=== PATIENT | male | born 1975 | race Caucasian/White ===

== ENCOUNTER → 2018-06-04 10:39 | Outpatient (CLI) | payer BC, SELFPAY ==
[2018-06-04 12:14] LABS: Absolute Lymphocyte Count 1.12 X10^3/ul (0.83-4.51); Absolute Neutrophil Count 5.9 X10^3/uL (2.0-7.7); Basophil# 0.02 X10^3/uL; Basophil% 0.2 % (0-1); Eosinophil# 0.73 X10^3/uL; Eosinophils% 8.9 % (0-5); Hematocrit 54.4 % (40-54); Hemoglobin 18.9 g/dl (13.0-16.5); Lymphocyte # 1.12 X10^3/ul (4.0); Lymphocyte % 13.7 % (19-41); Mean Corp Hgb Conc 34.7 g/gl (32-36); Mean Corpuscular Hgb 31.2 pg (27.0-32.0); Mean Corpuscular Volume 89.8 fL (80-94); Mean Platelet Vol. 10.7 fl (6.2-12.0); Monocyte# 0.42 X10^3/uL; Monocyte% 5.1 % (0-10); Neutrophil # 5.88 X10^3/uL (2.7-7.7); Neutrophil % 71.7 % (47-70); Platelet Count 257 K/mm3 (150-450); RBC Distribution Width CV 13.8 % (11.6-14.6); Red Blood Count 6.06 M/mm3 (4.6-6.2); White Blood Count 8.2 K/mm3 (4.4-11.0)
[2018-06-04 12:30] LABS: POSITIVE COUNT NO; POSITIVE DIFFERENTIAL NO; POSITIVE MORPHOLOGY NO
[2018-06-04 13:01] LABS: ALB/GLOB Ratio 1.2 RATIO (0.9-2.4); AST(SGOT) 36 U/L (15-37); Alanine Aminotransfer ALT/SGPT 57 U/L (16-61); Albumin, Serum 3.8 g/dL (3.2-5.0); Alkaline Phosphatase 71 U/L (45-117); Anion Gap 9 (5-15); BUN 17 mg/dL (7-18); BUN/Creat Ratio 14.2 RATIO (10-20); Calcium,Total 8.6 mg/dL (8.5-10.1); Chloride 106 mmol/L (98-107); EST Glomerular Filtration Rate 71 mL/min (>60); Est Glom Filt Rate - Afr Amer 86 mL/min (>60); Globulin 3.3 g/dL (2.2-4.2); Glucose 98 mg/dL (74-106); PSA,Total - Annual Screen 3.46 ng/mL (0.00-4.00); Potassium 4.2 mmol/L (3.5-5.1); Protein, Total 7.1 g/dL (6.4-8.2); Sodium Level 142 mmol/L (136-145)
--- OUTSIDE RECORDS SUMMARY | 2018-09-05 23:42 | XMS RPT_ITS ---
:1975 Author Organization [facility] Care Team Providers Name Role Phone SMITH HERNANDEZ Admitting Unavailable SMITH HERNANDEZ Attending Unavailable SMITH HERNANDEZ Primary Care Unavailable SARY SABILLON Consulting Unavailable PROVIDER, UNKNOWN Consulting Unavailable RM HEART MD Admitting Unavailable RM HEART MD Attending Unavailable RM HEART MD Primary Care Unavailable SARY SABILLON Consulting Unavailable PROVIDER, UNKNOWN Consulting Unavailable Rm Heart Attending Unavailable Rm Heart Attending Unavailable PROBLEMS PROBLEMS No Problem Records FoundPROCEDURES PROCEDURES No Procedure Records FoundRESULTS RESULTS HEPATIC FUNCTION Collected: 07/06/2018 Status: F Source: [place] KAUR PANEL 2:05 PM [facility] REPOSITORY TYPE CODE TESTS RESULT OUT OF REFERENCE UNITS RANGE LAB HEPATIC FUNCTION PANEL(LOINC) HEPATIC FUNCTION PANEL Result Comment: HEPATIC FUNCTION PROFILE LAB ALBUMIN(LOINC) 3.4 - 4.8 g/dL ALBUMIN 4.6 LAB ALK PHOS(LOINC) 38 - 126 U/L ALK PHOS 50 LAB AST/SGOT(LOINC) 13 - 39 U/L AST/SGOT 38 LAB ALT/SGPT(LOINC) 10 - 40 U/L ALT/SGPT 36 LAB TOTAL BILI(LOINC) 0.0 - 1.5 mg/dl TOTAL BILI 0.9 LAB DIRECT BILI(LOINC) 0.0 - 0.1 mg/dl High DIRECT BILI 0.2 LAB TOTAL PROTEIN(LOINC) 6.4 - 8.3 g/dl TOTAL PROTEIN 6.9 Performed By: #### [id number] #### [facility],[address] [place], [place] [id number] CBC W/DIFF, AUTOMATED Collected: 06/04/2018 Status: F Source: [place] 10:41 AM [facility] REPOSITORY TYPE CODE TESTS RESULT OUT OF RANGE REFERENCE UNITS LAB L100.1000 4.4-11.0 K/mm3 Normal WBC 8.2 LAB L100.1200 4.6-6.2 M/mm3 Normal RBC 6.06 LAB L100.1300 13.0-16.5 g/dl High alert HGB 18.9 LAB L100.1400 40-54 % High HCT 54.4 LAB L100.1500 80-94 fL Normal MCV 89.8 LAB L100.1600 27.0-32.0 pg Normal MCH 31.2 LAB L100.1700 32-36 g/gl Normal MCHC 34.7 LAB L100.1810 11.6-14.6 % Normal RDW CV 13.8 LAB L100.1820 35.1-43.9 fl High RDW SD 45.0 LAB L100.1900 150-450 K/mm3 Normal PLT 257 LAB L100.2000 6.2-12.0 fl Normal MPV 10.7 LAB L100.2100 47-70 % High NEUT% 71.7 LAB L100.2200 19-41 % Low LY% 13.7 LAB L100.2300 0-10 % Normal MONO% 5.1 LAB L100.2400 0-5 % High EO% 8.9 LAB L100.2500 0-1 % Normal BASO% 0.2 LAB L100.2550 0.0-0.9 % Normal IM GRAN % 0.400 Result Comment: IG% - Immature Granulocytes (promyelocytes, myelocytes and metamyelocytes) > 1% indicates that a LEFT SHIFT is Present. LAB L100.2620 2.0-7.7 X10 3/uL Normal Absolute Neut 5.9 LAB L100.2720 0.83-4.51 X10 3/ul Normal Absolute Lymph 1.12 Performed By: #### L100.0100 #### [facility] [place], [address] COMPREHENSIVE METABOLIC Collected: 06/04/2018 Status: F Source: [place] 10:41 AM [facility] REPOSITORY TYPE CODE TESTS RESULT OUT OF RANGE REFERENCE UNITS LAB L501.0100 74-106 mg/dL Normal GLU 98 Result Comment: Please note revised GLUCOSE reference range effective 2017. LAB L501.1000 7-18 mg/dL Normal BUN 17 LAB L501.1100 0.70-1.30 mg/dL Normal CREAT,SERUM 1.20 Result Comment: The validity of the calculated GFR AND GFRAA in patients over 70 years has not been determined. Clinical correlation is essential. LAB L501.1110 >60 mL/min Normal EST GFR 71 Result Comment: Non- GFR Calc LAB L501.1115 >60 mL/min Normal EST GFR - AA 86 Result Comment: GFR Calc LAB L501.1300 10-20 RATIO Normal BUN/CRE 14.2 LAB L501.1500 6.4-8.2 g/dL T Normal PROT 7.1 LAB L501.1800 3.2-5.0 g/dL Normal ALB 3.8 LAB L501.1950 2.2-4.2 g/dL Normal GLOB 3.3 LAB L501.2000 0.9-2.4 RATIO Normal A/G 1.2 LAB L501.2200 8.5-10.1 mg/dL CA Normal 8.6 LAB L501.4100 15-37 U/L Normal AST 36 LAB L501.4305 45-117 U/L Normal ALK P 71 LAB L501.4405 16-61 U/L Normal ALT 57 LAB L501.4600 0.20-1.00 mg/dL T Normal BILI 0.50 LAB L501.5300 136-145 mmol/L NA Normal 142 LAB L501.5600 3.5-5.1 mmol/L K Normal 4.2 LAB L501.5900 98-107 mmol/L CL Normal 106 LAB L501.6100 21.0-32.0 mmol/L Normal CO2 27.0 LAB L501.6200 5-15 Normal GAP 9 Performed By: #### L500.4050, L501.9910 #### [facility] [address] [place], [address] PSA,TOTAL - ANNUAL Collected: 06/04/2018 Status: F Source: [place] SCREEN 10:41 AM [facility] REPOSITORY TYPE CODE TESTS RESULT OUT OF RANGE REFERENCE UNITS LAB L501.9910 0.00-4.00 ng/mL Normal PSA,TOT 3.46 SCREEN Result Comment: This test was performed using the TPSA assay method for the [employer] chemistry system. Values obtained with different assay methods cannot be used interchangably. When changing PSA assays in the course of monitoring a patient, additional sequential testing should be carried out to confirm baseline values. Performed By: #### L500.4050, L501.9910 #### [facility] [address] [place], [address] ALLERGIES ALLERGIES DATE TYPE / CODE NAME / CODE REACTION SEVERITY SOURCE Miscellaneous No Known Drug Moderate [facility] Allergy/[id number](S Allergies ([facility]OMED [facility]) Modifier) Hospital (Qualifier Repository Value) ENCOUNTERS ENCOUNTERS ADMIT/DISCHARGE ACCOUNT ADMITTING ENCOUNTER LOCATION SOURCE NUMBER CLASS 07/06/2018/ [id number] David HERNANDEZ [address] Repository 06/04/[id number] ing:BFHLAB Repository 06/04/[id number] ing:SAFIA Repository E 02/21/2018/ [id number] [facility] [address] Repository PAYERS PAYERS ENCOUNTER GUARANTOR PAYER SUBSCRIBER SOURCE 07/06/2018 KHANH Campbell Primary Insurance:ORESTES ANNE: LEXIE OLIVEIRAB: [facility] [id number] [facility] [id number] [facility] [address] Number: [address] [place]ository [address] [id number] [address] [id number]: Date:Plan Name: [id number] () 06/04/2018 KHANH D Primary KHANH D [place] [id number] Insurance:ANTHEMPolicy SHOULTSDOB: [facility] [address] Number: [id number] [id number] Repository [address]Yzl: ([phone]) Date:[id number] [phone] () [address] [place] [address] [id number]: 06/04/2018 Secondary NOT GIVENUNK [place] Insurance:SELF PAY [facility] Number: Effective Repository Date:2018-06-04 06/04/2018 KHANH D Primary KHANH D [place] [id number] Insurance:ANTHEMPolicy SHOULTSDOB: [facility] Number: [id number] [id number] Repository [address]Eif: ([phone]) Date:[id number] [phone] () [id number] [place] [address] [id number]: 06/04/2018 Secondary NOT GIVENUNK [place] Insurance:SELF PAY [facility] Number: Effective Repository Date:2018-06-04 02/21/2018 KHANH D Primary Insurance:BLUE KHANH D [facility] K[facility] SHOULTSDOB: [address] ANTHEM SHOULTSDOB: [facility] [id number] [facility] [id number] Number: [address] Repository [address] [place] [address] [id number] [address] [place] [address] [id number]: Date:Plan Name:[id number] ()
== END ==
PROVIDERS: Visit Provider Family Medicine
DX: I10 Essential (primary) hypertension (principal); Z12.5 Encounter for screening for malignant neoplasm of prostate
CPT/HCPCS: 36415; 80053; 84153; 85025; G0103

== ENCOUNTER → 2019-02-08 09:31 | Outpatient (CLI) | payer BC, SELFPAY ==
[2019-02-08 10:37] LABS: Absolute Lymphocyte Count 0.95 X10^3/uL (0.83-4.51); Absolute Neutrophil Count 7.2 X10^3/uL (2.0-7.7); Basophil# 0.02 X10^3/uL; Basophil% 0.2 % (0-1); Eosinophil# 0.25 X10^3/uL; Eosinophils% 2.7 % (0-5); Hematocrit 52.5 % (40-54); Hemoglobin 17.5 g/dL (13.0-16.5); Lymphocyte # 0.95 X10^3/ul (4.0); Lymphocyte % 10.3 % (19-41); Mean Corp Hgb Conc 33.3 g/dL (32-36); Mean Corpuscular Hgb 30.1 pg (27.0-32.0); Mean Corpuscular Volume 90.4 fL (80-94); Mean Platelet Vol. 10.3 fl (6.2-12.0); Monocyte# 0.72 X10^3/uL; Monocyte% 7.8 % (0-10); NRBC Flagged by Analyzer 0 % (0-5); Neutrophil # 7.23 X10^3/uL (2.7-7.7); Neutrophil % 78.5 % (47-70); Platelet Count 368 K/mm3 (150-450); RBC Distribution Width CV 13.7 % (11.6-14.6); RBC Distribution Width SD 45.4 fl (35.1-43.9); Red Blood Count 5.81 M/mm3 (4.6-6.2); White Blood Count 9.2 K/mm3 (4.4-11.0)
[2019-02-08 11:04] LABS: Anion Gap 8 (5-15); BUN 24 mg/dL (7-18); BUN/Creat Ratio 19.7 RATIO (10-20); Calcium,Total 8.8 mg/dL (8.5-10.1); Chloride 108 mmol/L (98-107); Creatinine, Serum 1.22 mg/dL (0.70-1.30); EST Glomerular Filtration Rate 69 mL/min (>60); Est Glom Filt Rate - Afr Amer 84 mL/min (>60); Glucose 78 mg/dL (74-106); Potassium 4.1 mmol/L (3.5-5.1); Sodium Level 142 mmol/L (136-145)
== END ==
PROVIDERS: Family Provider Family Medicine; PCP Family Medicine; Visit Provider Family Medicine
DX: Z01.810 Encounter for preprocedural cardiovascular examination (principal); D75.1 Secondary polycythemia
CPT/HCPCS: 36415; 80048; 85025

== ENCOUNTER → 2025-04-12 | Outpatient (CLI) | payer BC, SELFPAY ==
[2025-04-12 09:57] LABS: Hematocrit 53.7 % (40-54); Hemoglobin 18.5 g/dL (13.0-16.5); Immature Granulocytes Count 0.020 X10^3/uL (0.0-0.0); Mean Corp Hgb Conc 34.5 g/dL (32-36); Mean Corpuscular Volume 89.8 fL (80-94); Mean Platelet Vol. 10.7 fl (6.2-12.0); NRBC Flagged by Analyzer 0 % (0-5); Platelet Count 314 K/mm3 (150-450); RBC Distribution Width CV 13.9 % (11.6-14.6); RBC Distribution Width SD 46.3 fl (35.1-43.9); Red Blood Count 5.98 M/mm3 (4.6-6.2); White Blood Count 6.3 K/mm3 (4.4-11.0)
[2025-04-12 10:50] LABS: Cholesterol 173 mg/dL (<=200); Ferritin 298 ng/mL (37-417); Low Density Lipoprotein Calc. 112 mg/dL; Magnesium 2.2 mg/dL (1.5-2.2); PSA,Total- Diagnostic 3.02 ng/mL (0.00-4.00); Triglycerides 49 mg/dL; Very Low Density Lipoprotein 10 mg/dL (5-40); Vitamin B12 1418 pg/mL (180-914); Vitamin D,25 Hydroxy 62.3 ng/mL (30-100); cholesterol:hdl ratio screen 3.35
[2025-04-12 10:52] LABS: AST(SGOT) 48 U/L (<=37); Alanine Aminotransfer ALT/SGPT 59 U/L (<=46); Albumin, Serum 4.3 g/dL (3.5-5.0); Alkaline Phosphatase 64 U/L (40-129); Anion Gap 10 (5-15); BUN 21 mg/dL (4-19); BUN/Creat Ratio 18.0 RATIO (10-20); Calcium,Total 9.2 mg/dL (7.6-11.0); Carbon Dioxide 25.4 mmol/L (21.0-32.0); Chloride 104 mmol/L (98-108); Globulin 2.5 g/dL (2.2-4.2); Glucose 103 mg/dL (70-99); Potassium 4.4 mmol/L (3.3-5.1)
[2025-04-15 15:08] LABS: Estrogen, Total, Serum 105 pg/mL (56-213)
== END | disposition home or self-care (01) ==
PROVIDERS: PCP Family Medicine; Referring Provider Family Medicine; Visit Provider Family Medicine
DX: D58.2 Other hemoglobinopathies (principal); R74.8 Abnormal levels of other serum enzymes; E29.1 Testicular hypofunction; R73.9 Hyperglycemia, unspecified; Z13.220 Encounter for screening for lipoid disorders; R97.20 Elevated prostate specific antigen [PSA]; R68.89 Other general symptoms and signs
CPT/HCPCS: 36415; 80053; 80061; 82306; 82607; 82627; 82672; 82728; 83036; 83735; 84153; 84403; 85025; 82626

== ENCOUNTER → 2025-06-07 | Outpatient (CLI) | payer BC, SELFPAY ==
--- OUTSIDE RECORDS SUMMARY | 2025-06-07 07:10 | XMS RPT_ITS | CCD ---
Author Organization [facility] ion [facility] Care Team Providers Care Insurance Agency Sales Manager Name Role Phone Jake Juarez Primary Care Provider Kristopher RYAN, Haroon Powell Unavailable [phone] Jake Juarez MD Primary Care Provider [phone] Jake Juarez MD Primary Care Provider Unavailable Primary Care Provider Unavailabl e Jake Juarez MD Unavailable Carolin DIE OPERATOR, Adelina Unavailable Poppy Menchaca Unavailable Unavailable Issa DIE OPERATOR, Ragini Unavailable Unavailable Michael WOMACK, Mar Unavailable Unavailable Moe DIE OPERATOR, Cely Glass Unavailable Unavailab javid Oswald DIE OPERATOR, Maritza Unavailable Unavailable Unavailable Unavailable SARY SABILLON Primary Care Unavailable WILLIAM DUFF Attending Unavailable Unavailable Primary Care Provider Unavailabl e Unavailable Primary Care Provider Unavailabl e JAKE JUAREZ Referring Unavai lable VACCJAKE HERNANDEZ Primary Care Unavailable RAKEL, HARRISON MAYTE Referring Unavailable RAKEL, HARRISON MAYTE Attending Unavailable VACCARIELLO, JAKE Loza Primary Care Unavailable RAKEL, HARRISON MAYTE Attending Unavailable VACCARIELLO, ANTHONY Primary Care Unavailable RAKEL, HARRISON MAYTE Attending Unavailable VACCARIELLO, JAKE Primary Care Unavailable VACCARIELLO, JAKE Admitting Unavailable VACCARIELLO, JAKE Attending Unavailable VACCARIELLO, JAKE Consulting Unavailable PROVIDER, UNKNOWN Consulting Unavailable PROVIDER, UNKNOWN Consulting Unavailable PROVIDER, UNKNOWN Consulting Unavailable RAKEL, HARRISON MAYTE Primary Care Unavailable VACCARIELLO, JAKE Consulting Unavailable RAKEL, HARRISON MAYTE Admitting Unavailable RAKEL, HARRISON MAYTE Attending Unavailable PROVIDER, UNKNOWN Consulting Unavailable PROVIDER, UNKNOWN Consulting Unavailable PROVIDER, UNKNOWN Consulting Unavailable VACCARIELLO, JAKE Primary Care Unavailable VACCARIELLO, JAKE Admitting Unavailable VACCARIELLO, JAKE Attending Unavailable VACCARIELLO, JAKE Consulting Unavailable PROVIDER, UNKNOWN Consulting Unavailable PROVIDER, UNKNOWN Consulting Unavailable PROVIDER, UNKNOWN Consulting Unavailable VACCARIELLO, JAKE Admitting Unavailable VACCARIELLO, JAKE Attending Unavailable VACCARIELLO, JAKE Consulting Unavailable VACCARIELLO, JAKE Primary Care Unavailable PROVIDER, UNKNOWN Consulting Unavailable PROVIDER, UNKNOWN Consulting Unavailable PROVIDER, UNKNOWN Consulting Unavailable RAKEL, HARRISON MAYTE Primary Care Unavailable RAKEL, HARRISON MAYTE Attending Unavailable VACCARIELLO, JAKE Consulting Unavailable RAKEL, HARRISON MAYTE Admitting Unavailable PROVIDER, UNKNOWN Consulting Unavailable PROVIDER, UNKNOWN Consulting Unavailable PROVIDER, UNKNOWN Consulting Unavailable VACCARIELLO, JAKE Primary Care Unavailable VACCARIELLO, JAKE Admitting Unavailable VACCARIELLO, JAKE Attending Unavailable VACCARIELLO, JAKE Consulting Unavailable PROVIDER, UNKNOWN Consulting Unavailable PROVIDER, UNKNOWN Consulting Unavailable PROVIDER, UNKNOWN Consulting Unavailable Vaccariello, Jake Attending Unavailable Vaccariello, Jake Referring Unavailable Vaccariello, Jake Primary Care Unavailable Allergies Allergy Classification Reported Allergen(s) Allergy Type Date of Onset Reaction(s) Facility (1 source) ALLERGIES NOT ON FILE; Translations: [ALLERGIES NOT ON FILE] Propensity to adverse reactions (disorder) [facility] 2 Repository Medications Current Medications Medication Drug Class(es) Dates Sig (Normalized) Sig (Original) cetirizine hydrochloride 10 mg oral tablet (1 source) Histamine-1 Receptor Antagonist Start: 05-02-2023 End: 06-01-2023 take 1 tablet by mouth once daily cetirizine (ZYRTEC) 10 mg tablet Take 1 tablet by mouth once daily. 30 tablet 0 05/02/2023 06/01/2023 Active Comment on above: Take 1 tablet by [facility] once daily. doxycycline monohydrate 100 mg oral tablet (2 sources) Tetracycline-clas s Drug Start: 06-14-2024 End: 06-21-2024 take 1 tablet by mouth twice daily doxycycline monohydrate 100 mg tablet Take 1 tablet by mouth two times a day for 7 days. 14 tablet 06/14/2024 06/21/2024 Active Start: 05-02-2023 End: 05-09-2023 take 1 tablet by mouth twice daily doxycycline (VIBRA-TABS) 100 mg tablet Take 1 tablet by mouth two times a day for 7 days. 14 tablet 0 05/02/2023 05/09/2023 Active Comment on above: Take 1 tablet by maryjo two times a day for 7 days. fluticasone propionate 0.05 mg/actuat metered dose nasal spray (2 sources) Corticosteroid Start: 05-02-20 take 1 spray(s) nasal route once daily at bedtime fluticasone (FLONASE) 50 mcg/actuation nasal spray Use 1 [place] in each nostril daily at bedtime. 18.2 mL 05/02/2023 Active Comment on above: Use 1 [place] in each nostril daily at bedtime. 3 ml insulin glargine 100 unt/ml pen injector (20 sources) Insulin Analog Start: 07-26-19 Lantus Solostar U-100 Insulin 100 unit/mL (3 mL) subcutaneous pen ; 15 units at bedtime for 0 days Quantity: 5 {Each} Refills: 2 Ordered: 26-Jul-2024 MD Jake Juarez Start: 26-Jul-2024 Start: 01-18-2024 Lantus Solosta r U-100 Insulin 100 unit/mL (3 mL) subcutaneous pen ; 15 units at bedtime for 0 days Quantity: 5 {Each} Refills: 1 Ordered: 18-Jan-2024 MD Jake Juarez Start: 18-Jan-2024 Start: 12-28-2023 Lantus Solosta r U-100 Insulin 100 unit/mL (3 mL) subcutaneous pen ; 15 units at bedtime for 0 days Quantity: 5 {Each} Refills: 1 Ordered: 28-Dec-2023 MD Jake Juarez Start: 28-Dec-2023 Start: 12-28-2023 Lantus Solosta r U-100 Insulin 100 unit/mL (3 mL) subcutaneous pen ; 15 units at bedtime for 0 days Quantity: 5 {Each} Refills: 1 Ordered: 28-Dec-2023 MD Jake Juarez Start: 28-Dec-2023 Start: 12-28-2023 Lantus Solosta r U-100 Insulin 100 unit/mL (3 mL) subcutaneous pen ; 15 units at bedtime for 0 days Quantity: 5 {Each} Refills: 1 Ordered: 28-Dec-2023 MD Jake Juarez Start: 28-Dec-2023 Start: 12-28-2023 Lantus Solosta r U-100 Insulin 100 unit/mL (3 mL) subcutaneous pen ; 15 units at bedtime for 0 days Quantity: 5 {Each} Refills: 1 Ordered: 28-Dec-2023 MD Jake Juarez Start: 28-Dec-2023 Start: 12-27-2023 End: 12-28-2023 inject 15 [IU] by subcutaneous injection once daily at bedtime Lantus U-100 Insulin 100 unit/mL subcutaneous solution ; 15 units qhs for 0 days Quantity: 1 {Each} Refills: 0 Ordered: 28-Dec-2023 ADELE Coe Start: 27-Dec-2023 End: 28-Dec-2023 Status: Inactive Comments: pen injector Comment on above: pen injector lisinopril 10 mg oral tablet (20 sources) Angiotensin Converting Enzyme Inhibitor Start: 020 End: take 1 tablet by mouth once daily lisinopriL (PRINIVIL,ZESTRIL) 10 MG tablet Take 1 (one) tablet (10 mg total) by mouth daily . 90 tablet 3 09/11/2024 Active mupirocin 0.02 mg/mg topical ointment (1 source) RNA Synthetase Inhibitor Antibacterial Start: 024 End: mupirocin (BACTROBAN) 2 % ointment Apply to affected area three times a day for 7 days. 15 g 06/14/2024 06/21/2024 Active 1 ml testosterone cypionate 200 mg/ml injection (20 sources) Androgen Start: inject 0.5 mL by intramuscular injection two times weekly testosterone cypionate 200 mg/mL intramuscular oil ; 0.5 Milliliter twice per wk for 0 days Quantity: 10 {Milliliter} Refills: 3 Ordered: 06-Jan-2025 MD Jake Juarez Start: 06-Jan-2025 Comments: Lawanda Crowe Start: 11-23-2023 inject 0.5 mL by int ramuscular injection two times weekly testosterone cypionate 200 mg/mL intramuscular oil ; 0.5 Milliliter twice per wk for 0 days Quantity: 10 {Milliliter} Refills: 3 Ordered: 03-Jun-2024 MD Jake Juarez Start: 03-Jun-2024 Comments: Lawanda Crowe Start: 03-23-2023 inject 0.5 mL by int ramuscular injection two times weekly testosterone cypionate 200 mg/mL intramuscular oil ; 0.5 Milliliter twice per wk for 0 days Quantity: 10 {Milliliter} Refills: 3 Ordered: 23-Mar-2023 MD Jake Juarez Start: 23-Mar-2023 Comments: Lawanda Crowe testosterone cyp ionate 200 mg/mL Kit Inject 0.25 mL (50 mg total) into the shoulder, thigh, or buttocks . Active testosterone cyp ionate 200 mg/mL Kit Inject 50 mg into the shoulder, thigh, or buttocks . 0 Active testosterone john nthate 100 mg/0.5 mL auto-injector 2 injections per week testosterone enanthate Fany Martinez Comment on above: Lawanda Crowe Completed/Discontinued Medications Medication Drug Class(es) Dates Sig (Normalized) Sig (Original) atorvastatin 20 mg oral tablet (14 sources) HMG-CoA Reductase Inhibitor Start: 05-13-2020 End: 09-06-2023 take 1 tablet by mouth once daily atorvastatin (LIPITOR) 20 MG tablet Take 1 tablet by mouth once daily 90 tablet 0 06/14/2021 09/06/2023 Discontinued (Patient's Request) azithromycin 250 mg oral tablet (20 sources) Macrolide Antimicrobial Start: 11-29-2023 End: 12-22-2023 azithromycin 250 mg tablet ; 2 (two) tablet day 1 oral, then 1/dx4d for 0 days Quantity: 6 {Tablet} Refills: 0 Ordered: 22-Dec-2023 ADELE Coe Start: 29-Nov-2023 End: 22-Dec-2023 Status: Inactive Start: 05-03-2023 End: 06-09-2023 azithromycin 250 mg tablet ; 2 (two) tablet day 1 oral, then 1/dx4d for 0 days Quantity: 6 {Tablet} Refills: 0 Ordered: 09-Jun-2023 ADELE Coe Start: 03-May-2023 End: 09-Jun-2023 Status: Inactive 24 hr metoprolol succinate 25 mg extended release oral tablet (11 sources) beta-Adrenergic [place] Start: 06-17-2020 End: 09-06-2023 take 1 tablet by mouth once daily metoprolol succinate (Toprol XL) 25 MG 24 hr tablet Take 1 (one) tablet (25 mg total) by mouth daily . 90 tablet 3 06/17/2020 09/06/2023 Discontinued (Patient's Request) oseltamivir 75 mg oral capsule (20 sources) Neuraminidase Inhibitor Start: 05-22-2022 End: 06-16-2022 take 1 capsule by mouth twice daily Oseltamivir Phosphate 75 MG Oral Capsule ; 1 (one) Capsule bid for 0 days Quantity: 10 {Capsule} Refills: 0 Ordered: 16-Jun-2022 CarolinADELE Adelina Start: 22-May-2022 End: 16-Jun-2022 Status: Inactive 1000 ml sodium chloride 9 mg/ml injection (1 source) Start: 07-17-2020 End: 07-17-2020 sodium chloride 0.9% (NS) bolus 9 mL Start: 07-17-2020 End: 07-17-2020 sodium chloride 0.9% (NS) julián parker 9 mL Problems Active Problems Problem Classification Problem Date Documented Date Episodic/Chronic Aortic; peripheral; and visceral artery aneurysms (12 sources) Aortic root dilatation; Translations: [Ascending aorta dilatation] Onset: 09-11-2024 06-09-2023 Chronic Cardiac and circulatory congenital anomalies (5 sources) Bicuspid aortic valve; Translations: [Congenital insufficiency of aortic valve] Onset: 09-11-2024 09-06-2023 Chronic Deficiency and other anemia (20 sources) Increased hemoglobin; Translations: [Other hemoglobinopathies] 07-10-2024 Chronic Deficiency and other anemia (1 source) Other hemoglobinopathies; Translations: [Other hemoglobinopathies] Onset: 04-21-2025 Chronic Diabetes mellitus without complication (20 sources) Hyperglycemia; Translations: [Hyperglycemia, unspecified] 12-27-2023 Episodic Disorders of lipid metabolism (2 sources) Hyperlipidemia; Translations: [Hyperlipidemia, unspecified hyperlipidemia type] Chronic Essential hypertension (3 sources) Hypertensive disorder; Translations: [Essential (primary) hypertension] Onset: 09-11-2024 09-11-2024 Chronic Heart valve disorders (5 sources) Aortic valve regurgitation; Translations: [Nonrheumatic aortic (valve) insufficiency] Onset: 09-11-2024 06-09-2023 Chronic Immunizations and screening for infectious disease (20 sources) Contact with and (suspected) exposure to other viral communicable diseases; Translations: [Contact with or exposure to other viral diseases] 05-22-2022 Episodic Malaise and fatigue (20 sources) Fatigue; Translations: [Other fatigue] 06-30-2022 Episodic Open wounds of extremities (1 source) Puncture wound of right foot; Translations: [Puncture wound without foreign body, right foot, initial encounter] 11-30-2020 Episodic Other aftercare (20 sources) H/O: high risk medication; Translations: [Other sales agent insurance (current) drug therapy] 07-05-2024 Episodic Other circulatory disease (20 sources) Elevated blood-pressure reading without diagnosis of hypertension; Translations: [Elevated blood-pressure reading, without diagnosis of hypertension] 06-30-2022 Episodic Other congenital anomalies (20 sources) 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; Translations: [Enchondromatosis] Onset: 03-24-2021 03-24-2021 Chronic Other endocrine disorders (20 sources) Male hypogonadism; Translations: [Testicular hypofunction] 04-13-2023 Chronic Other liver diseases (20 sources) Elevated liver enzymes level; Translations: [Abnormal levels of other serum enzymes] 07-10-2024 Episodic Other nutritional; endocrine; and metabolic disorders (20 sources) Body mass index 30+ - obesity; Translations: [Body mass index (BMI) 35.0-35.9, adult] 06-30-2022 Chronic Other screening for suspected conditions (not mental disorders or infectious disease) (20 sources) Electrocardiogram abnormal; Translations: [Raised prostate specific antigen] Onset: 07-10-2024 04-25-2023 Episodic Comment on above: on tx Other upper respiratory infections (20 sources) Chronic sinusitis; Translations: [Chronic sinusitis, unspecified] 05-02-2023 Chronic Other upper respiratory infections (20 sources) Acute sinusitis; Translations: [Acute sinusitis, unspecified] Onset: 12-01-2023 11-29-2023 Episodic Residual codes; unclassified (2 sources) FH: Cardiac disorder; Translations: [Family history of heart disease] Episodic Residual codes; unclassified (20 sources) Immunization not carried out because of patient refusal; Translations: [Vaccination not carried out because of patient refusal] 06-30-2022 Episodic Residual codes; unclassified (20 sources) Up-to-date with immunizations; Translations: [Personal history of other drug therapy] 06-30-2022 Episodic Comment on above: 1 adult tdap 2020 Residual codes; unclassified (20 sources) Viral syndrome; Translations: [Other general symptoms and signs] 05-22-2022 Episodic Residual codes; unclassified (20 sources) Family history of diabetes mellitus in first degree relative; Translations: [Family history of diabetes mellitus] 12-27-2023 Episodic Residual codes; unclassified (4 sources) Forgetful; Translations: [Other general symptoms and signs] 02-05-2025 Episodic Skin and subcutaneous tissue infections (1 source) Infection of skin; Translations: [Local infection of the skin and subcutaneous tissue, unspecified] 06-14-2024 Episodic Unclassified (20 sources) Follow up for chronic condition - The patient is here for follow-up of other condition(s) (low testosterone). Note for Chronic condition follow-up: -Doing well. 12-27-2023 Unclassified (1 source) Follow-up for multiple chronic conditions (RAH) 02-05-2025 Unclassified (2 sources) Follow-up for multiple chronic conditions (RAH) - The patient is here for follow-up of other condition(s) (low testosterone, high glucose). The patient always takes the prescribed medications. No side effects noted. The patient engages in regular exercise program 3-5 times per week. The patient's glucose levels are monitored daily and out of office blood pressure checks occur frequently. The patient states that in general mood has improved. 02-05-2025 Unclassified (2 sources) [ADDITIONAL REASON] Well adult male - The patient feels well with no complaints, has good energy level and is sleeping well. The patient takes no supplemental vitamins & iron. The patient exercises 3 - 4 times per week. The patient sleeps 7 hours per night. Note for Well adult male: -He is using testosterone regularly as well as lantus. He checks his glucose often. He eats a lot of carbs. 02-05-2025 Past or Other Problems Problem Classification Problem Date Documented Date Episodic/Chronic Other acquired deformities (1 source) Defect of articular cartilage; Translations: [Other specified acquired deformities of musculoskeletal system] Onset: 05-22-2019 05-22-2019 Episodic Other connective tissue disease (1 source) Radial styloid tenosynovitis [de Quervain]; Translations: [Radial styloid tenosynovitis] Onset: 03-24-2021 03-24-2021 Episodic Other connective tissue disease (1 source) Trigger finger, left ring finger; Translations: [Trigger finger (acquired)] Onset: 04-22-2020 04-22-2020 Episodic Other connective tissue disease (1 source) Trigger thumb, left thumb; Translations: [Trigger finger (acquired)] Onset: 05-22-2019 05-22-2019 Episodic Other connective tissue disease (1 source) Trigger finger, left index finger; Translations: [Trigger finger (acquired)] Onset: 05-22-2019 05-22-2019 Episodic Other connective tissue disease (1 source) Trigger finger, left middle finger; Translations: [Trigger finger (acquired)] Onset: 05-22-2019 05-22-2019 Episodic Other connective tissue disease (1 source) Trigger finger, right middle finger; Translations: [Trigger finger (acquired)] Onset: 05-22-2019 05-22-2019 Episodic Other connective tissue disease (1 source) Trigger finger, right ring finger; Translations: [Trigger finger (acquired)] Onset: 05-22-2019 05-22-2019 Episodic Other non-traumatic joint disorders (1 source) Pain in elbow; Translations: [Pain in left elbow] Onset: 03-24-2021 03-24-2021 Episodic Unclassified (1 source) Problem Unclassified (20 sources) Well adult male - The patient feels well with no complaints, has good energy level and is sleeping well. The patient takes no supplemental vitamins & iron. The patient exercises 3 - 4 times per week. The patient sleeps 7 hours per night. Note for Well adult male: -His dentist was concerned about sleep apnea and had scheduled a test but pt cancelled.He states he was using testosterone daily for awhile. 06-30-2022 Unclassified (20 sources) wants excuse - Wants excuse to not wear a face mask at work. Other coworkers have excuses. He gets too hot and his blood pressure goes too high. He tried a sheild. He left work in the middle of a shift today and walked into [facility] to request this. 11-04-2020 Unclassified (20 sources) Well adult male - The patient feels well with no complaints, has good energy level and is sleeping well. The patient takes no supplemental vitamins & iron. The patient exercises weekly. The patient sleeps 7 hours per night. Note for Well adult male: -Asking for more labwork. He specifically wants testosterone, prolactin, CRP, a1c, dihydrotestosterone, cortisol and estrogens. 04-29-2020 Unclassified (1 source) Patient encounter status 07-10-2024 Results Test Name Value Interpretation Reference Range Facility DHEA Sulfateon 04-15-2025 DHEA SULFATE 156.0 ug/dL Normal 71.6-375.4 [facility] Comment on above: Order Comment: N Performed By: #### L [id number], L501.9985, L509.3001, L503.6550, L506.1001, L503.0106, L100.0100, L500.4050, L501.5200, L500.4100, L3400.0200, L3300.1500 #### [facility] [address] [place], [address] Estrogen, Total, Serumon ESTROGENS,TOTAL 105 pg/mL Normal 56-213 [facility] Comment on above: Order Comment: N Result Comment: Prep ubertal <40 Performed at: [facility] [address] [id number] [employer] Research Analyst: Franklyn Morales PhD, Phone: [phone] Performed at: [facility] [address] [id number] [employer] Research Analyst: Ronny Hayes MD, Phone: [phone] Performed By: #### L [id number], L501.9985, L509.3001, L503.6550, L506.1001, L503.0106, L100.0100, L500.4050, L501.5200, L500.4100, L3400.0200, L3300.1500 #### [facility] [address] [place], [address] CBC W/Diff, Automatedon 10- Absolute Lymph 0.84 X10 3/uL Normal 0.83-4.51 [facility] Comment on above: Order Comment: CRITI LUBNA VALUE CALLED TO CALLI TAMARA 04/12/25 Ly Goodwin. RESULTS READ BACK BY SAME. Performed By: #### L [id number], L501.9985, L509.3001, L503.6550, L506.1001, L503.0106, L100.0100, L500.4050, L501.5200, L500.4100, L3400.0200, L3300.1500 #### [facility] [address] [place], [address] Absolute Neut 4.8 X10 3/uL Normal 2.0-7.7 [facility] Comment on above: Order Comment: CRITI LUBNA VALUE CALLED TO CALLI MCDONALD 04/12/25 Ly Goodwin. RESULTS READ BACK BY SAME. Performed By: #### L [id number], L501.9985, L509.3001, L503.6550, L506.1001, L503.0106, L100.0100, L500.4050, L501.5200, L500.4100, L3400.0200, L3300.1500 #### [facility] [address] [place], [address] Basophils/100 WBC (Bld) 0.5 % Normal 0-1 [facility] Comment on above: Order Comment: CRITI LUBNA VALUE CALLED TO CALLI TAMARA 04/12/25 Ly Goodwin. RESULTS READ BACK BY SAME. Performed By: #### L [id number], L501.9985, L509.3001, L503.6550, L506.1001, L503.0106, L100.0100, L500.4050, L501.5200, L500.4100, L3400.0200, L3300.1500 #### [facility] [address] [place], [address] Eosinophils/100 WBC (Bld) 3.8 % Normal 0-5 [facility] Comment on above: Order Comment: CRITI LUBNA VALUE CALLED TO CALLI MCDONALD 04/12/25 Ly Goodwin. RESULTS READ BACK BY SAME. Performed By: #### L [id number], L501.9985, L509.3001, L503.6550, L506.1001, L503.0106, L100.0100, L500.4050, L501.5200, L500.4100, L3400.0200, L3300.1500 #### [facility] [address] [place], [address] Erythrocyte distribution width (RBC) [Ratio] 13.9 % Normal 11.6-14.6 [facility] Comment on above: Order Comment: CRITI LUBNA VALUE CALLED TO CALLI MCDONALD 04/12/25 Ly Goodwin. RESULTS READ BACK BY SAME. Performed By: #### L 501.9940, L501.9985, L509.3001, L503.6550, L506.1001, L503.0106, L100.0100, L500.4050, L501.5200, L500.4100, L3400.0200, L3300.1500 #### [facility] [address] [facility] [place], [place], [id number] ([address] Hematocrit (Bld) [Volume fraction] 53.7 % Normal 40-54 [facility] Comment on above: Order Comment: CRITI LUBNA VALUE CALLED TO CALLI MCDONALD 04/12/25 Ly Goodwin. RESULTS READ BACK BY SAME. Performed By: #### L 501.9940, L501.9985, L509.3001, L503.6550, L506.1001, L503.0106, L100.0100, L500.4050, L501.5200, L500.4100, L3400.0200, L3300.1500 #### [facility] [address] [place], [address] Hemoglobin (Bld) [Mass/Vol] 18.5 g/dL Invalid Interpretation Code 13.0-16.5 [facility] Comment on above: Order Comment: CRITI LUBNA VALUE CALLED TO CALLI MCDONALD 04/12/25 Ly Allen Goodwin. RESULTS READ BACK BY SAME. Performed By: #### L 501.9940, L501.9985, L509.3001, L503.6550, L506.1001, L503.0106, L100.0100, L500.4050, L501.5200, L500.4100, L3400.0200, L3300.1500 #### [facility] [address] [place], [address] IG% 0.300 Normal 0.0-0.9 [facility] Comment on above: Order Comment: CRITI LUBNA VALUE CALLED TO CALLI MCDONALD 04/12/25 Ly Goodwin. RESULTS READ BACK BY SAME. Result Comment: IG% - Immature Granulocytes (promyelocytes, myelocytes and metamyelocytes) > 1% indicates that a LEFT SHIFT is Present. Performed By: #### L 501.9940, L501.9985, L509.3001, L503.6550, L506.1001, L503.0106, L100.0100, L500.4050, L501.5200, L500.4100, L3400.0200, L3300.1500 #### [facility] [address] [place], [address] Lymphocytes/100 WBC (Bld) 13.3 % Low 19-41 [facility] Comment on above: Order Comment: CRITI LUBNA VALUE CALLED TO CALLI MCDONALD 04/12/25 Ly Goodwin. RESULTS READ BACK BY SAME. Performed By: #### L 501.9940, L501.9985, L509.3001, L503.6550, L506.1001, L503.0106, L100.0100, L500.4050, L501.5200, L500.4100, L3400.0200, L3300.1500 #### [facility] [address] [place], [address] MCH (RBC) [Entitic mass] 30.9 pg Normal 27.0-32.0 [facility] Comment on above: Order Comment: CRITI LUBNA VALUE CALLED TO CALLI MCDONALD 04/12/25 Ly Tiffany Goodwin. RESULTS READ BACK BY SAME. Performed By: #### L 501.9940, L501.9985, L509.3001, L503.6550, L506.1001, L503.0106, L100.0100, L500.4050, L501.5200, L500.4100, L3400.0200, L3300.1500 #### [facility] [address] [place], [address] MCHC (RBC) [Mass/Vol] 34.5 g/dL Normal 32-36 [facility] Comment on above: Order Comment: CRITI LUBNA VALUE CALLED TO CALLI MCDONALD 04/12/25 Ly Tiffany Goodwin. RESULTS READ BACK BY SAME. Performed By: #### L 501.9940, L501.9985, L509.3001, L503.6550, L506.1001, L503.0106, L100.0100, L500.4050, L501.5200, L500.4100, L3400.0200, L3300.1500 #### [facility] [address] [place], [address] MCV (RBC) [Entitic vol] 89.8 fL Normal 80-94 [facility] Comment on above: Order Comment: CRITI LUBNA VALUE CALLED TO CALLI MCDONALD 04/12/25 Ly Rankinneto Goodwin. RESULTS READ BACK BY SAME. Performed By: #### L 501.9940, L501.9985, L509.3001, L503.6550, L506.1001, L503.0106, L100.0100, L500.4050, L501.5200, L500.4100, L3400.0200, L3300.1500 #### [facility] [address] [place], [address] Monocytes/100 WBC (Bld) 7.0 % Normal 0-10 [facility] Comment on above: Order Comment: CRITI LUBNA VALUE CALLED TO CALLI BEAN 04/12/25 Ly Tiffany Goodwin. RESULTS READ BACK BY SAME. Performed By: #### L 501.9940, L501.9985, L509.3001, L503.6550, L506.1001, L503.0106, L100.0100, L500.4050, L501.5200, L500.4100, L3400.0200, L3300.1500 #### [facility] [address] [place], [address] Neutrophils/100 WBC (Bld) 75.1 % High 47-70 [facility] Comment on above: Order Comment: CRITI LUBNA VALUE CALLED TO CALLI MCDONALD 04/12/25 Ly Goodwin. RESULTS READ BACK BY SAME. Performed By: #### L 501.9940, L501.9985, L509.3001, L503.6550, L506.1001, L503.0106, L100.0100, L500.4050, L501.5200, L500.4100, L3400.0200, L3300.1500 #### [facility] [address] [place], [place], [phone] (282) Nucleated RBC (Bld) [#/Vol] 0 10*3/uL Normal 0-5 [facility] Comment on above: Order Comment: CRITI LUBNA VALUE CALLED TO CALLI MCDONALD 04/12/25 Ly Tiffany Goodwin. RESULTS READ BACK BY SAME. Performed By: #### L 501.9940, L501.9985, L509.3001, L503.6550, L506.1001, L503.0106, L100.0100, L500.4050, L501.5200, L500.4100, L3400.0200, L3300.1500 #### [facility] [address] [place], [place], [id number] (304) Platelet mean volume (Bld) [Entitic vol] 10.7 fL Normal 6.2-12.0 [facility] Comment on above: Order Comment: CRITI LUBNA VALUE CALLED TO CALLI MCDONALD 04/12/25 Ly Goodwin. RESULTS READ BACK BY SAME. Performed By: #### L 501.9940, L501.9985, L509.3001, L503.6550, L506.1001, L503.0106, L100.0100, L500.4050, L501.5200, L500.4100, L3400.0200, L3300.1500 #### [facility] [address] [place], [address] Platelets (Bld) [#/Vol] 314 10*3/uL Normal 150-450 [facility] Comment on above: Order Comment: CRITI LUBNA VALUE CALLED TO CALLI MCDONALD 04/12/25 Ly Goodwin. RESULTS READ BACK BY SAME. Performed By: #### L 501.9940, L501.9985, L509.3001, L503.6550, L506.1001, L503.0106, L100.0100, L500.4050, L501.5200, L500.4100, L3400.0200, L3300.1500 #### [facility] [address] [place], [address] RBC (Bld) [#/Vol] 5.98 10*6/uL Normal 4.6-6.2 [facility] Comment on above: Order Comment: CRITI LUBNA VALUE CALLED TO CALLI MCDONALD 04/12/25 Ly Goodwin. RESULTS READ BACK BY SAME. Performed By: #### L 501.9940, L501.9985, L509.3001, L503.6550, L506.1001, L503.0106, L100.0100, L500.4050, L501.5200, L500.4100, L3400.0200, L3300.1500 #### [facility] [address] [place], [address] RDW SD 46.3 fl High 35.1-43.9 [facility] Comment on above: Order Comment: CRITI LUBNA VALUE CALLED TO CALLI MCDONALD 04/12/25 Ly Goodwin. RESULTS READ BACK BY SAME. Performed By: #### L 501.9940, L501.9985, L509.3001, L503.6550, L506.1001, L503.0106, L100.0100, L500.4050, L501.5200, L500.4100, L3400.0200, L3300.1500 #### [facility] [address] [place], [place], [id number] WBC (Bld) [#/Vol] 6.3 10*3/uL Normal 4.4-11.0 [facility] Comment on above: Order Comment: CRITI LUBNA VALUE CALLED TO CALLI MCDONALD 04/12/25 Ly Goodwin. RESULTS READ BACK BY SAME. Performed By: #### L 501.9940, L501.9985, L509.3001, L503.6550, L506.1001, L503.0106, L100.0100, L500.4050, L501.5200, L500.4100, L3400.0200, L3300.1500 #### [facility] [address] [place], [address] Comprehensive Metabolic Prof wion 04-12-2025 Albumin [Mass/Vol] 4.3 g/dL Normal 3.5-5.0 [facility] Comment on above: Performed By: #### L 501.9940, L501.9985, L509.3001, L503.6550, L506.1001, L503.0106, L100.0100, L500.4050, L501.5200, L500.4100, L3400.0200, L3300.1500 #### [facility] [address] [place], [place], [id number] Albumin/Globulin [Mass ratio] 1.7 {ratio} Normal 0.9-2.4 [facility] Comment on above: Performed By: #### L 501.9940, L501.9985, L509.3001, L503.6550, L506.1001, L503.0106, L100.0100, L500.4050, L501.5200, L500.4100, L3400.0200, L3300.1500 #### [facility] [address] [place], [place], [id number] ALK PHOS 64 U/L Normal 40-129 [facility] Comment on above: Performed By: #### L 501.9940, L501.9985, L509.3001, L503.6550, L506.1001, L503.0106, L100.0100, L500.4050, L501.5200, L500.4100, L3400.0200, L3300.1500 #### [facility] [address] [place], [place], [id number] ALT [Catalytic activity/Vol] 59 U/L High <=46 [facility] Comment on above: Performed By: #### L 501.9940, L501.9985, L509.3001, L503.6550, L506.1001, L503.0106, L100.0100, L500.4050, L501.5200, L500.4100, L3400.0200, L3300.1500 #### [facility] [address] [place], [place], [id number] AST [Catalytic activity/Vol] 48 U/L High <=37 [facility] Comment on above: Result Comment: Hemo lysis present, Results??could be affected. ?? Performed By: #### L 501.9940, L501.9985, L509.3001, L503.6550, L506.1001, L503.0106, L100.0100, L500.4050, L501.5200, L500.4100, L3400.0200, L3300.1500 #### [facility] [address] [place], [place], [phone] Bilirubin [Mass/Vol] 0.43 mg/dL Normal 0.00-1.30 [facility] Comment on above: Performed By: #### L 501.9940, L501.9985, L509.3001, L503.6550, L506.1001, L503.0106, L100.0100, L500.4050, L501.5200, L500.4100, L3400.0200, L3300.1500 #### [facility] [address] [place], [place], [phone] (928) BUN/CRE 18.0 RATIO Normal 10-20 [facility] Comment on above: Performed By: #### L 501.9940, L501.9985, L509.3001, L503.6550, L506.1001, L503.0106, L100.0100, L500.4050, L501.5200, L500.4100, L3400.0200, L3300.1500 #### [facility] [address] [place], [place], [id number] Calcium [Mass/Vol] 9.2 mg/dL Normal 7.6-11.0 [facility] Comment on above: Performed By: #### L 501.9940, L501.9985, L509.3001, L503.6550, L506.1001, L503.0106, L100.0100, L500.4050, L501.5200, L500.4100, L3400.0200, L3300.1500 #### [facility] [address] [place], [place], [id number] Chloride [Moles/Vol] 104 mmol/L Normal 98-108 [facility] Comment on above: Performed By: #### L 501.9940, L501.9985, L509.3001, L503.6550, L506.1001, L503.0106, L100.0100, L500.4050, L501.5200, L500.4100, L3400.0200, L3300.1500 #### [facility] [address] [place], [address] CO2 [Moles/Vol] 25.4 mmol/L Normal 21.0-32.0 [facility] Comment on above: Performed By: #### L 501.9940, L501.9985, L509.3001, L503.6550, L506.1001, L503.0106, L100.0100, L500.4050, L501.5200, L500.4100, L3400.0200, L3300.1500 #### [facility] [address] [place], [address] Creatinine [Mass/Vol] 1.17 mg/dL Normal 0.70-1.20 [facility] Comment on above: Performed By: #### L 501.9940, L501.9985, L509.3001, L503.6550, L506.1001, L503.0106, L100.0100, L500.4050, L501.5200, L500.4100, L3400.0200, L3300.1500 #### [facility] [address] [place], [place], [id number] GAP 10 Normal 5-15 [facility] Comment on above: Performed By: #### L 501.9940, L501.9985, L509.3001, L503.6550, L506.1001, L503.0106, L100.0100, L500.4050, L501.5200, L500.4100, L3400.0200, L3300.1500 #### [facility] [address] [place], [address] GFR/1.73 sq M.predicted among non-blacks MDRD (S/P/Bld) [Vol rate/Area] 77 mL/min/{1.73_m2} Normal >60 [facility] Comment on above: Result Comment: mL/m in/1.73m2 CKD-EPI Creatinine Equation (2020) Performed By: #### L 501.9940, L501.9985, L509.3001, L503.6550, L506.1001, L503.0106, L100.0100, L500.4050, L501.5200, L500.4100, L3400.0200, L3300.1500 #### [facility] [address] [place], [address] Globulin (S) [Mass/Vol] 2.5 g/dL Normal 2.2-4.2 [facility] Comment on above: Performed By: #### L 501.9940, L501.9985, L509.3001, L503.6550, L506.1001, L503.0106, L100.0100, L500.4050, L501.5200, L500.4100, L3400.0200, L3300.1500 #### [facility] [address] [place], [place], [id number] Glucose [Mass/Vol] 103 mg/dL High 70-99 [facility] Comment on above: Performed By: #### L 501.9940, L501.9985, L509.3001, L503.6550, L506.1001, L503.0106, L100.0100, L500.4050, L501.5200, L500.4100, L3400.0200, L3300.1500 #### [facility] [address] [place], [address] Potassium [Moles/Vol] 4.4 mmol/L Normal 3.3-5.1 [facility] Comment on above: Result Comment: Hemo lysis present, Results??could be affected. ?? Performed By: #### L 501.9940, L501.9985, L509.3001, L503.6550, L506.1001, L503.0106, L100.0100, L500.4050, L501.5200, L500.4100, L3400.0200, L3300.1500 #### [facility] [address] [place], [address] Sodium [Moles/Vol] 140 mmol/L Normal 133-145 [facility] Comment on above: Performed By: #### L 501.9940, L501.9985, L509.3001, L503.6550, L506.1001, L503.0106, L100.0100, L500.4050, L501.5200, L500.4100, L3400.0200, L3300.1500 #### [facility] [address] [place], [address] T PROT 6.8 g/dL Normal 5.9-8.4 [facility] Comment on above: Performed By: #### L 501.9940, L501.9985, L509.3001, L503.6550, L506.1001, L503.0106, L100.0100, L500.4050, L501.5200, L500.4100, L3400.0200, L3300.1500 #### [facility] [address] [place], [address] Urea nitrogen [Mass/Vol] 21 mg/dL High 4-19 [facility] Comment on above: Performed By: #### L 501.9940, L501.9985, L509.3001, L503.6550, L506.1001, L503.0106, L100.0100, L500.4050, L501.5200, L500.4100, L3400.0200, L3300.1500 #### [facility] [address] [place], [address] Ferritinon 04-12-2025 Ferritin [Mass/Vol] 298 ng/mL Normal 37-417 [facility] Comment on above: Performed By: #### L 501.9940, L501.9985, L509.3001, L503.6550, L506.1001, L503.0106, L100.0100, L500.4050, L501.5200, L500.4100, L3400.0200, L3300.1500 #### [facility] [address] [place], [place], [id number] Hemoglobin A1con 04-12-2025 HbA1c (Bld) [Mass fraction] 5.2 % Normal <=5.6 [facility] Comment on above: Result Comment: Norm al < 5.7 % Prediabetic 5.7 - 6.4 % Diabetic >or= 6.5 % Please note range changes. Performed By: #### L 501.9940, L501.9985, L509.3001, L503.6550, L506.1001, L503.0106, L100.0100, L500.4050, L501.5200, L500.4100, L3400.0200, L3300.1500 #### [facility] [address] [place], [place], [address] L509.3001on 04-12-2025 Testosterone [Mass/Vol] 619.00 ng/dL Normal 300-890 [facility] Comment on above: Performed By: #### L 501.9940, L501.9985, L509.3001, L503.6550, L506.1001, L503.0106, L100.0100, L500.4050, L501.5200, L500.4100, L3400.0200, L3300.1500 #### [facility] [address] [place], [place], [id number] Lipid Profileon 04-12-2025 CHOL:HDL 3.[address] [facility] Comment on above: Performed By: #### L 501.9940, L501.9985, L509.3001, L503.6550, L506.1001, L503.0106, L100.0100, L500.4050, L501.5200, L500.4100, L3400.0200, L3300.1500 #### [facility] [address] [place], [address] Cholesterol [Mass/Vol] 173 mg/dL Normal <=200 [facility] Comment on above: Result Comment: Chol esterol level, Desirable <200 mg/dL Borderline high cholesterol 200-239 mg/dL High cholesterol >=240 mg/dL Recommendations of the NCEP Adult Treatment Panel for the following risk-cutoff thresholds for the [place] population. Performed By: #### L 501.9940, L501.9985, L509.3001, L503.6550, L506.1001, L503.0106, L100.0100, L500.4050, L501.5200, L500.4100, L3400.0200, L3300.1500 #### [facility] [address] [place], [address] Cholesterol in HDL [Mass/Vol] 52 mg/dL Normal [facility] Comment on above: Result Comment: Mely onal Cholesterol Education Program (NCEP) guidelines: <40 mg/dL: Low HDL-cholesterol (major risk factor for CHD) >= 60 mg/dL: High HDL-cholesterol (negative risk factor for CHD) HDL-cholesterol is affected by a number of factors, e.g. smoking, exercise, hormones, sex and age. Performed By: #### L 501.9940, L501.9985, L509.3001, L503.6550, L506.1001, L503.0106, L100.0100, L500.4050, L501.5200, L500.4100, L3400.0200, L3300.1500 #### [facility] [address] [place], [address] Cholesterol in LDL [Mass/Vol] 112 mg/dL Normal [facility] Comment on above: Result Comment: Bord iworgy=514-780 mg/dL Higher Shoy=169 mg/dL or greater Kim Equation 2020 for LDL-C Performed By: #### L 501.9940, L501.9985, L509.3001, L503.6550, L506.1001, L503.0106, L100.0100, L500.4050, L501.5200, L500.4100, L3400.0200, L3300.1500 #### [facility] [address] [place], [place], [id number] Cholesterol in VLDL [Mass/Vol] 10 mg/dL Normal 5-40 [facility] Comment on above: Performed By: #### L 501.9940, L501.9985, L509.3001, L503.6550, L506.1001, L503.0106, L100.0100, L500.4050, L501.5200, L500.4100, L3400.0200, L3300.1500 #### [facility] [address] [facility] [place], [place], [id number] Triglyceride [Mass/Vol] 49 mg/dL Normal [facility] Comment on above: Result Comment: The drugs N-Acetylcysteine and Metamizole may falsely depress this assay. Normal range: <150 mg/dL Borderline High: 150-199 mg/dL High: 200-499 mg/dL Very High: >500 mg/dL Performed By: #### L 501.9940, L501.9985, L509.3001, L503.6550, L506.1001, L503.0106, L100.0100, L500.4050, L501.5200, L500.4100, L3400.0200, L3300.1500 #### [facility] [address] [place], [place], [id number] Magnesiumon 04-12-2025 Magnesium [Mass/Vol] 2.2 mg/dL Normal 1.5-2.2 [facility] Comment on above: Performed By: #### L 501.9940, L501.9985, L509.3001, L503.6550, L506.1001, L503.0106, L100.0100, L500.4050, L501.5200, L500.4100, L3400.0200, L3300.1500 #### [facility] [address] [place], [place], [phone] (757) PSA,Total- Diagnosticon 10-2 PSA, DIAGNOSTIC 3.02 ng/mL Normal 0.00-4.00 [facility] Comment on above: Result Comment: This test was performed using the [employer] tPSA method. Measured values of a patient??sample can vary depending on the testing procedure used. PSA values determined on patient samples by different testing procedures cannot be used interchangeably. If there is a change in PSA assays while monitoring therapy, sequential testing should be performed to confirm baseline values. Performed By: #### L 501.9940, L501.9985, L509.3001, L503.6550, L506.1001, L503.0106, L100.0100, L500.4050, L501.5200, L500.4100, L3400.0200, L3300.1500 #### [facility] [address] [place], [address] Vitamin B12on 04-12-2025 Cobalamin (Vitamin B12) [Mass/Vol] 1418 pg/mL High 180-914 [facility] Comment on above: Performed By: #### L 501.9940, L501.9985, L509.3001, L503.6550, L506.1001, L503.0106, L100.0100, L500.4050, L501.5200, L500.4100, L3400.0200, L3300.1500 #### [facility] [address] [place], [place], [id number] Vitamin D,25 Hydroxyon 04-12 Vitamin D 25-OH 62.3 ng/mL Normal 30-100 [facility] Comment on above: Result Comment: Katy min D Status Deficiency: <20 ng/mL (50nmol/L) Insufficiency: 20-30 ng/mL (50-75 nmol/L) Sufficiency: 30-100 ng/mL (75-250 nmol/L) Toxicity: >100 ng/mL (>250 nmol/L) Performed By: #### L 501.9940, L501.9985, L509.3001, L503.6550, L506.1001, L503.0106, L100.0100, L500.4050, L501.5200, L500.4100, L3400.0200, L3300.1500 #### [facility] [address] [facility] [place], [place], [id number] Laboratory - Hematology and Cell countson 02-05-2025 HbA1c (Bld) [Mass fraction] 5.0 % Normal 4.6 - 7.1 % [facility], [facility], [facility] CT ANGIOGRAPHY CHESTon 10-11 Ct angiography chest w/contrast/noncontrast [facility] [address] [place] [id number] Patient: KHANH DOMINGUEZ Phone#: : 1975 Age: 49 Gender: M Pt. Type: Out Account: [id number] Location: Ordering: HARRISON RAKEL Exam Date: 10/11/2024/15:42 Family Phys: Charge Code: [id number] Physician: Labette Order #: [id number] Dose#: 18.40 mGy PROCEDURE: CT ANGIOGRAPHY CHEST WITH CONTRAST COMPARISON: None. INDICATIONS: Ascending aorta dilation. TECHNIQUE: After obtaining the patient's consent, CT images were obtained with non-ionic intravenous contrast material. Multi-planar images were created to optimize visualization of vascular anatomy with MPR/MIPS and 3D imaging. All CT scans at this facility use dose modulation, iterative reconstruction, and/or weight based dosing when appropriate to reduce radiation dose to as low as reasonably achievable. IV CONTRAST: Omnipaque 350,80ml TOTAL DOSE: 18.40 CTDIvol(mGy) FINDINGS: VASCULATURE: Normal. No visible pulmonary arterial thrombus or attenuation. AORTA: The ascending aorta measures up to 4.2 centimeters in diameter. There is no evidence dissection. Nonspecific 4 millimeter nodule is present in the right upper lobe. LUNGS: Normal. No visible pulmonary disease. TYSON: Normal. No mass or adenopathy. MEDIASTINUM: Normal. No mass or adenopathy. CARDIAC: Normal. No enlargement, pericardial thickening, or significant calcification. PLEURA: Normal. No mass or effusion. CHEST WALL: Normal. No mass or axillary adenopathy. LIMITED ABDOMEN: Normal. Limited images of the upper abdomen are unremarkable. BONES: Normal. No bony lesion or fracture. OTHER: Negative. CONCLUSION: 1. Ascending aorta diameter is 4.2 centimeters. There is no evidence of dissection. 2. Nonspecific 4 millimeter right upper lobe nodule. [place] [id number] Patient: KHANH DOMNIGUEZ. Phone#: : 1975 Age: 49 Gender: M Pt. Type: Out Account: [id number] Location: Ordering: HARRISON RAKEL Exam Date: 10/11/2024/15:42 Family Phys: Charge Code: [id number] Physician: Labette Order #: [id number] Dose#: 18.40 mGy Dictated by: Roxanna Marley MD on 10/11/2024 at 16:45 Approved by: Roxanna Marley MD on 10/11/2024 at 16:47 Normal [facility] CREATININEon 10-08-2024 Creatinine [Mass/Vol] 1.17 mg/dL Normal 0.70 - 1.30 [facility] Comment on above: Performed By: #### 2 [id number] #### [facility],[address] [place], [place] [id number] ECG 12 Leadon 09-11-2024 Atrial Rate [facility] P [place] [facility] P-R Interval [facility] Q-T Interval [facility] Q-T Interval (corrected) [facility] QRS Duration [facility] QTC Calculation (Bezet) [facility] R [place] [facility] T [place] [facility] Ventricular Rate [facility] ECHOCARDIOGRAM COMPLETEon ECHOCARDIOGRAM COMPLETE Patient Info Name: KHANH DOMINGUEZ Age: 49 years : 1975 Gender: Male Ht: 170 cm Wt: 107 kg BSA: 2.30 m2 HR: 57 bpm BP: 145 / 88 mmHg Technical Quality: Good Exam Date: 09/11/2024 1:02 PM Patient Status: Outpatient Care Center Manager: Jo Ann Hilton, JHON, KRISTINA Exam Type: ECHOCARDIOGRAM COMPLETE Study Info Indications I35.1 - Nonrheumatic aortic (valve) insufficiency I77.810 - Thoracic aortic ectasia Attending Physician: HARRISON ELLINGTON Referring Physician: HARRISON ELLINGTON ; [id number] BMI: 36.96 kg/m2 Summary 1. Left ventricular systolic function is normal with an ejection fraction by Biplane Method of Discs of 61 %. 2. Bicuspid aortic valve with mild aortic stenosis and mild aortic regurgitation. 3. The aortic root is mildly dilated measuring 4.4 cm with an index of 1.9 cm/m2. 4. The proximal ascending aorta is mildly dilated measuring 4.6 cm with an index of 2.0 cm/m2. 5. Compared to the prior report from 09/06/2023, ascending aortic diameter is slightly larger (4.6 cm versus 4.4 cm) but there is no other significant change. History/Risk Factors Hypertension: Yes Tobacco Use: Former Family History: Coronary Artery Disease Valve Disease - AV: Mild to moderate Procedure(s): Complete two-dimensional, color flow and Doppler transthoracic echocardiogram is performed. Left Ventricle Left ventricular chamber dimension is mildly enlarged. Left ventricular systolic function is normal with an ejection fraction by Biplane Method of Discs of 61 %. There is mild left ventricular concentric hypertrophy. Left ventricular segmental wall motion is normal. The left ventricular diastolic function is normal. Longitudinal strain of the left ventricle is normal, -18 %. Right Ventricle Right ventricular size and systolic function are normal. Left Atria Left atrial chamber is normal with a left atrial volume index of 26 ml/m2 by BP MOD. Right Atria Right atrial chamber dimension is normal. Aortic Valve The aortic valve is bicuspid with fusion of the right and left coronary cusps. There is mild aortic valve sclerosis. There is no aortic valve stenosis. There is mild aortic valve regurgitation. Aortic valve systolic mean gradient is 11 mmHg with a peak velocity of 2.3 m/s and a peak gradient of 21 mmHg. The dimensionless index is calculated at 0.49 with a calculated aortic valve area of 2.4 cm2. Pulmonic Valve The pulmonic valve is normal. There is no pulmonic valve stenosis. There is trace pulmonic regurgitation. Mitral Valve The mitral valve has normal leaflets. There is no mitral valve stenosis. There is trace mitral valve regurgitation. Tricuspid Valve The tricuspid valve leaflets are normal. There is no significant tricuspid valve stenosis. There is trace tricuspid valve regurgitation. RV systolic pressure could not be accurately estimated. Pericardium/Pleural There is no pericardial effusion. Inferior Vena Cava Normal inferior vena cava with >50% collapse upon inspiration consistent with normal right atrial pressure. Aorta The aortic measurements are indexed to age and body surface area. The aortic root is mildly dilated measuring 4.4 cm with an index of 1.9 cm/m2. The proximal ascending aorta is mildly dilated measuring 4.6 cm with an index of 2.0 cm/m2. No evidence of aortic coarctation was detected on Doppler interrogation of descending thoracic aortic flow from the suprasternal notch window. Left Ventricular Outflow Tract Name Value Normal LVOT 2D LVOT Diameter 2.4 cm LVOT Doppler LVOT Peak Velocity 1.2 m/s LVOT Peak Gradient 6 mmHg LVOT Mean Gradient 3 mmHg LVOT VTI 23 cm LVOT VTI/AV VTI Ratio 0.5 LVOT Stroke Volume 105 ml LVOT Stroke Index 45.78 ml/m2 Pulmonic Valve Name Value Normal RVOT Doppler RVOT Peak Velocity 75 cm/s RVOT Peak Gradient 2 mmHg PV Doppler PV Peak Velocity 0.94 m/s PV Peak Gradient 3 mmHg PV Regurgitation Doppler WI Peak Gradient 7 mmHg WI Peak End Diastolic Velocity 131 cm/s Mitral Valve Name Value Normal MV Doppler - (more content not included)... Normal [facility] HEMOGLOBIN A1C (POM)on 07-12 Glucose [Mass/Vol] 96.8 mg/dL High 0.0 - 0.0 [facility] Comment on above: Result Comment: [facility] HEMOGLOBIN A1C REFERENCE RANGESDo Suggested Diagnosis HbA1c(%) HbA1C (mmol/mol Diabetic >/=6.5 >/=48 Prediabetes 5.7 - 6.4 39 - 47 Normal <5.7 <39 Performed By: #### 2 [id number] #### [facility],[address] [place] [address] HbA1c (Bld) [Mass fraction] 5.0 % Normal 0.0 - 6.5 [facility], [place].; [facility] [place]. Comment on above: Performed By: #### 2 66751 #### [facility],[address] [place] [address] Laboratory - Chemistry and C hemistry - challengeon 07-12-2024 Average glucose Estimated from glycated hemoglobin (Bld) [Mass/Vol] 96.8 mg/dL Abnormal 0.0 - 0.0 mg/dL [facility], [place].; [facility], [place]. Prostate specific Ag [Mass/Vol] 4.88 ng/mL Abnormal 0.00 - 4.00 ng/mL [facility], [facility].; [facility] [employer] CT CARDIAC SCORING WO IV CON TRASTon 07-10-2024 CT CARDIAC SCORING WO IV CONTRAST Interpreted By: Carlos Alberto Morris, STUDY: CT CARDIAC SCORING WO IV CONTRAST; 07/10/2024 5:29 pm INDICATION: Signs/Symptoms:SCREEN FOR CAD. COMPARISON: None. ACCESSION NUMBER(S): [id number] ORDERING CLINICIAN: JAKE JUAREZ TECHNIQUE: Using prospective ECG gating, limited CT scan of the chest for evaluation of coronary arteries was performed without intravenous contrast. Coronary calcium scoring was performed according to the method of Agatston. FINDINGS: The score and distribution of calcium in the coronary arteries is as follows: LM: 0. LAD: 0. LCx: 0. RCA: 0. Total: 0. The visualized segments of the lungs are normally expanded. Mild bibasilar atelectasis. The visualized mid/lower ascending thoracic aorta measures 4.5 cm in diameter. The heart is mildly enlarged. No significant pericardial effusion is present. No gross evidence of mediastinal or hilar lymphadenopathy is identified. Small hiatal hernia. Suspected partially imaged hepatosplenomegaly in the visualized upper abdomen. IMPRESSION: 1. Coronary artery calcium score of 0*. 2. Aneurysmal dilatation ascending thoracic aorta up to 4.5 cm for which follow-up recommended. 3. Mild cardiomegaly. 4. Suspected partially imaged hepatosplenomegaly. *Coronary artery calcium scoring may be helpful in predicting the risk for future coronary heart disease events. According to the [place] [employer] Clinical Expert Consensus Task Force, such testing provides important prognostic information in patients with more than one coronary heart disease risk factor. The coronary artery calcium score correlates with the annual risk of a non-fatal myocardial infarction or coronary heart disease . Coronary artery score Annual Risk 0-99 0.4% 100-399 1.3% >400 2.4% These three breakpoints correspond to lower, intermediate and high risk states for future coronary events. Such information should be used, along with appropriate clinical judgment, to make decisions regarding the intensity of risk factor management strategies to treat blood lipids and to modify other non-lipid coronary risk factors. Reference: Irma P et al. Circulation. 2007; 115:402-426 MACRO: None Signed by: Carlos Alberto Morris 07/12/2024 6:00 PM Dictation workstation: [id number] [facility] DHEA-S [CCL]on 07-10-2024 DHEA-S 162.0 ug/dL Normal 44.3-331.0 [facility] Comment on above: Result Comment: Refe rence ranges are age and gender specific. For additional information, reference range tables can be found in the laboratory test directory. The normal values are based on the following source: Dehydroepiandrosterone sulfate (DHEA S) [package insert V 17.0 Indian]. [facility], [place], [place]: January 2013. [address] [address] Steve Paula III, M.D. [id number] Performed By: #### 2 98886 #### [address] [address] ESTRADIOL-17B [CCL]on 2024 Estradiol-17B 34 pg/mL Normal <38 [facility].; [facility] Comment on above: Result Comment: This test is not suitable for patients receiving treatment with the drug Fulvestrant (Faslodex). The drug causes an interference leading to falsely elevated estradiol results. [address] [address] Steve Paula III, M.D. [id number] Performed By: #### 2 44186 #### [address] [address] TESTOSTERONE [CCL]on 025 Testosterone [Mass/Vol] 1069 ng/dL High 193-824 [facility] Comment on above: Result Comment: A te stosterone level in the 193-320 ng/dL range with associated clinical symptoms is considered low and may indicate hypogonadism (from NEJM 2010 363:123-135). Results >320 ng/dL are considered normal. [place] [address] [place] [address] Steve Paula III, M.D. [id number] Performed By: #### 2 19564 #### [address] [address] CBC + DIFFon 07-09-2024 Baso # 0.02 x10EE3/UL Normal 0.00 - 0.10 [facility] Comment on above: Performed By: #### 2 46225 #### [place] [address] Basophils/100 WBC (Bld) 0.3 % Normal 0.0 - 2.0 [facility]; [facility], [facility] Comment on above: Performed By: #### 2 52854 #### [place] [address] CBC + DIFF Normal [facility] Comment on above: Result Comment: CBC- COMPLETE BLOOD COUNT Performed By: #### 2 07046 #### [place] [address] EO # 0.23 x10EE3/UL Normal 0.00 - 0.50 [facility] Comment on above: Performed By: #### 2 86669 #### [place] [address] Eosinophils/100 WBC (Bld) 3.5 % Normal 0.0 - 7.0 [facility], [facility].; [facility], [facility]. Comment on above: Performed By: #### 2 65216 #### [place] [address] Erythrocyte distribution width (RBC) [Ratio] 14.0 % Normal 12.0 - 15.6 [facility], [facility].; [facility], [facility]. Comment on above: Performed By: #### 2 37926 #### [place] [address] Hematocrit (Bld) [Volume fraction] 54.9 % High 40.0 - 52.0 [facility], [facility].; [facility], [place]. Comment on above: Performed By: #### 2 11548 #### [place] [address] Hemoglobin (Bld) [Mass/Vol] 18.7 g/dL High 13.0 - 17.5 [facility], [facility].; [facility] Comment on above: Performed By: #### 2 29102 #### [place] [address] Lymph # 0.77 x10EE3/UL Low 0.80 - 2.80 [facility] Comment on above: Performed By: #### 2 56646 #### [place] [address] Lymphocytes/100 WBC (Bld) 11.6 % Low 20.0 - 45.0 [facility]; [facility] Comment on above: Performed By: #### 2 87178 #### [place] [address] MANUAL DIFF N/A Normal [facility]; [facility] Comment on above: Performed By: #### 2 01470 #### [place] [address] MCH (RBC) [Entitic mass] 31 pg Normal 27 - 33 [facility]; [facility] Comment on above: Performed By: #### 2 18000 #### [place] [address] MCHC 34 X10 3 Normal 32 - 36 [facility] Comment on above: Performed By: #### 2 01610 #### [place] [address] MCV (RBC) [Entitic vol] 92 fL Normal 81 - 98 [facility]; [facility] Comment on above: Performed By: #### 2 04634 #### [place] [address] Comal # 0.39 x10EE3/UL Normal 0.20 - 1.00 [facility] Comment on above: Performed By: #### 2 47358 #### [place] [address] MONOS % 5.9 % Normal 0.0 - 10.0 [facility] Comment on above: Performed By: #### 2 46930 #### [address] [address] Morphology [place] (Bld) [Interp] N/A Normal [facility].; [facility]. Comment on above: Performed By: #### 2 86765 #### [place] [id number] Neut # 5.23 x10EE3/UL Normal 1.50 - 7.10 [facility] Comment on above: Performed By: #### 2 13043 #### [place] [id number] Neutrophils/100 WBC (Bld) 78.7 % High 46.0 - 76.0 [facility].; [facility] Comment on above: Performed By: #### 2 39383 #### [place] [id number] PLATELET 375 x10EE3/UL Normal 150 - 450 [facility] Comment on above: Performed By: #### 2 49852 #### [place] [id number] Platelet mean volume (Bld) [Entitic vol] 9.0 fL Normal 6.4 - 10.5 [facility].; [facility]. Comment on above: Result Comment: AUTO MATED DIFFERENTIAL Performed By: #### 2 64311 #### [address] [address] RBC 5.95 x 10EE6/UL Normal 4.50 - 6.00 [facility] Comment on above: Performed By: #### 2 49676 #### [place] [id number] WBC 6.7 x 10EE3/UL Normal 4.5 - 10.8 [facility] Comment on above: Performed By: #### 2 22506 #### [facility],[address] [place] [address] CMP with eGFRon 07-09-2024 AGE 49 years Normal [facility] Comment on above: Performed By: #### 2 74281 #### [facility],[address] [place] [address] Albumin [Mass/Vol] 3.8 g/dL Normal 3.4 - 5.0 [facility].; [facility], [facility] Comment on above: Performed By: #### 2 46315 #### [place] [address] Albumin/Globulin [Mass ratio] 1.3 {ratio} Normal 0.9 - 1.6 [facility] Comment on above: Performed By: #### 2 43661 #### [place] [address] ALK PHOS 63 U/L Normal 46 - 116 [facility] Comment on above: Performed By: #### 2 82743 #### [place] [address] ALT [Catalytic activity/Vol] 103 U/L High 16 - 63 [facility].; [facility], [facility]. Comment on above: Performed By: #### 2 61786 #### [place] [address] Anion gap [Moles/Vol] 10 mmol/L Normal 10 - 20 [facility].; [facility], [facility]. Comment on above: Performed By: #### 2 97510 #### [place] [address] AST [Catalytic activity/Vol] 43 U/L High 15 - 37 [facility].; [facility], [facility]. Comment on above: Performed By: #### 2 16683 #### [place] [address] B/C RATIO 16 ratio Normal 0 - 30 [facility] Comment on above: Performed By: #### 2 96213 #### [facility],[address] [place] [address] Bilirubin [Mass/Vol] 0.4 mg/dL Normal 0.2 - 1.0 [facility], [facility].; [facility] Comment on above: Performed By: #### 2 36287 #### [facility],[address] [place], [place] [address] Calcium [Mass/Vol] 8.4 mg/dL Low 8.5 - 10.1 [facility], [facility].; [facility] Comment on above: Performed By: #### 2 06312 #### [address] [address] Chloride [Moles/Vol] 108 mmol/L High 98 - 107 [facility], [facility].; [facility] Comment on above: Performed By: #### 2 42349 #### [address] [address] CMP with eGFR Normal [facility] Comment on above: Result Comment: COMP REHENSIVE METABOLIC PANEL Performed By: #### 2 44197 #### [address] [address] CO2 [Moles/Vol] 30.4 mmol/L Normal 21.0 - 32.0 [facility] Comment on above: Performed By: #### 2 20842 #### [address] [address] Creatinine [Mass/Vol] 1.24 mg/dL Normal 0.70 - 1.30 [facility], [facility].; [facility] Comment on above: Performed By: #### 2 84946 #### [address] [address] GFR/1.73 sq M.predicted among non-blacks MDRD (S/P/Bld) [Vol rate/Area] mL/min/{1.73_m2} Normal 60 - 999 [facility] Comment on above: Performed By: #### 2 33814 #### [address] [address] Result Comment: ACCO RDING TO THE NATIONAL KIDNEY DISEASE EDUCATION PROGRAM(NKDE), A NORMAL eGFR IS A VALUE GREATER THAN OR EQUAL TO 60 ML/MIN/1.73 SQ METERS. CHRONIC KIDNEY DISEASE: <60mL/MIN/1.73 SQ METERS KIDNEY FAILURE: <15mL/MIN/1.73 SQ METERS THIS TEST SHOULD ONLY BE USED FOR PATIENTS 18 YEARS OF AGE AND OLDER. Globulin (S) [Mass/Vol] 2.9 g/dL Normal 1.5 - 3.8 H [facility], [facility].; [facility], [facility]. Comment on above: Performed By: #### 2 15145 #### [address] [address] Glucose [Mass/Vol] 100 mg/dL Normal 74 - 106 [facility].; [facility], [place]. Comment on above: Performed By: #### 2 31680 #### [address] [address] Potassium [Moles/Vol] 4.6 mmol/L Normal 3.5 - 5.1 [facility].; [facility], [place]. Comment on above: Performed By: #### 2 30961 #### [address] [address] Protein [Mass/Vol] 6.7 g/dL Normal 6.4 - 8.2 [facility], [facility].; [facility] [employer] [facility], [place]. Comment on above: Performed By: #### 2 42046 #### [address] [address] Sodium [Moles/Vol] 144 mmol/L Normal 136 - 145 [facility], [facility].; [facility], [place]. Comment on above: Performed By: #### 2 25819 #### [facility],[address] [place] [address] Urea nitrogen [Mass/Vol] 20 mg/dL High 7 - 18 [facility].; [facility] Comment on above: Performed By: #### 2 07416 #### [facility],[address] [place] [address] DHEA-S BLDon 07-09-2024 DHEA-S [Mass/Vol] 162.0 ug/dL Normal 44.3-331.0 [facility] Comment on above: Order Comment: Speci men Type: BLOOD SPECIMEN Ordering Facility: [facility] Address: [address] [place] [address] Result Comment: Refe rence ranges are age and gender specific. For additional information, reference range tables can be found in the laboratory test directory. The normal values are based on the following source: Dehydroepiandrosterone sulfate (DHEA S) [package insert V 17.0 Indian]. [facility], [place], [place]: January 2013. Performed By: #### 2 243-4, DHEAS #### [facility] CLIA [id number] [address] [place] [address] [place] Estradiol SerPl-mCncon 07-09 E2 [Mass/Vol] 34 pg/mL Normal <38 [facility] Comment on above: Order Comment: Speci clarisa Type: BLOOD SPECIMEN Ordering Facility: [facility] Address: [address] [place] [address] Result Comment: This test is not suitable for patients receiving treatment with the drug Fulvestrant (Faslodex). The drug causes an interference leading to falsely elevated estradiol results. Performed By: #### 2 243-4, DHEAS #### [facility] CLIA [id number] [address] [place] [address] [place] LIPID PROFILEon 07-09-2024 Cholesterol [Mass/Vol] 161 mg/dL Normal 0 - 240 [facility].; [facility], [facility]. Comment on above: Performed By: #### 2 62310 #### [facility],[address] [place] [address] Cholesterol in HDL [Mass/Vol] 46 mg/dL Normal 40 - 60 [facility] Comment on above: Performed By: #### 2 93890 #### [facility],[address] [place] [address] Cholesterol in LDL [Mass/Vol] 107 mg/dL Normal 0 - 129 [facility].; [facility], [facility]. Comment on above: Performed By: #### 2 18843 #### [facility],[address] [place] [address] Cholesterol.total/Ana sterol in HDL [Mass ratio] 3.5 {ratio} Normal 0.0 - 5.0 [facility].; [facility], [facility]. Comment on above: Performed By: #### 2 58380 #### [address] [address] Lipid 1996 panel Normal [facility] Comment on above: Result Comment: LIPI D PROFILE Performed By: #### 2 24441 #### [address] [address] Triglyceride [Mass/Vol] 38 mg/dL Normal 0 - 150 H [facility], [facility].; [facility], [facility]. Comment on above: Performed By: #### 2 00172 #### [address] [address] Laboratory - Chemistry and C hemistry - challengeon 07-09-2024 Albumin [Mass/Vol] 1.3 g/dL Normal 0.9 - 1.6 [facility], [facility].; [facility] [employer] [facility], [facility]. ALP [Catalytic activity/Vol] 63 U/L Normal 46 - 116 U/L [facility], [facility].; [employer] [facility], [place]. Cholesterol in HDL [Mass or moles/Vol] 46 mg/dL Normal 40 - 60 mg/dL [facility]. Comprehensive metabolic 2000 panel CMP with eGFR Normal [facility].; [facility], [facility]. GFR/1.73 sq M.predicted among blacks MDRD (S/P/Bld) [Vol rate/Area] mL/min/{1.73_m2} Normal 60 - 999 {ML/MINUTE } [facility] [employer] [facility].; [facility], [facility]. GFR/1.73 sq M.predicted MDRD (S/P/Bld) [Vol rate/Area] mL/min/{1.73_m2} Normal 60 - 999 {ML/MINUTE } [facility].; [facility], [place]. Lipid 1996 panel LIPID PROFILE Normal [facility] Urea nitrogen/Creatinine [Mass ratio] 16 {ratio} Normal 0 - 30 {ratio} [facility] [employer], [place]. Laboratory - Hematology and Cell countson 07-09-2024 Basophils (Bld) [#/Vol] 0.02 {3/UL} Normal 0.00 - 0.10 {3/UL} [facility] [employer] [employer]. CBC W Auto Differential panel (Bld) CBC + DIFF Normal [facility].; [facility], [place]. Eosinophils (Bld) [#/Vol] 0.23 {3/UL} Normal 0.00 - 0.50 {3/UL} [employer], [place]. Lymphocytes (Bld) [#/Vol] 0.77 {3/UL} Abnormal 0.80 - 2.80 {3/UL} [employer].; [facility], [place]. MCHC (RBC) [Mass/Vol] 34 {X10_3} Normal 32 - 3 6 {X10_3} [facility], [place]. Monocytes (Bld) [#/Vol] 0.39 {3/UL} Normal 0.20 - 1.00 {3/UL} [employer], [place]. Monocytes/100 WBC (Bld) 5.9 % Normal 0.0 - 10.0 % [facility] [employer]. Neutrophils (Bld) [#/Vol] 5.23 {3/UL} Normal 1.50 - 7.10 {3/UL} [facility]. Platelets (Bld) [#/Vol] 375 {3/UL} Normal 150 - 450 {3/UL} [facility]. RBC (Bld) [#/Vol] 5.95 {6/UL} Normal 4.50 - 6.00 {6/UL} [facility]. WBC (Bld) [#/Vol] 6.7 {3/UL} Normal 4.5 - 10.8 {3/UL} [facility]. No Panel Informationon 07-09 AGE 49 {years} Normal [facility]. Testost SerPl-ncon 025 Testosterone [Mass/Vol] 1069 ng/dL Abnormal 193 - 824 ng/dL [facility]. Comment on above: Order Comment: Speci men Type: BLOOD SPECIMEN Ordering Facility: [facility] Address: [address] [place] [address] Result Comment: A te stosterone level in the 193-320 ng/dL range with associated clinical symptoms is considered low and may indicate hypogonadism (from MSJ 2010 363:123-135). Results >320 ng/dL are considered normal. Performed By: #### 2 986-8 #### [facility] CLIA [id number] [address] [place] [address] [place] CNOVon 06-14-2024 CNOV Office Visit (UCWSTR ) ----- KHANH DOMINGUEZ ([id number]) 1975 M Date Time Provider Department 06/14/24 4:00 PM ANGELA LORENZ [facility] During your visit today, we recorded the following information about you: Temperature Pulse Respiration Blood pressure 98.3 degrees 85/minute 16/minute 148/84 Weight 113.5 kg Angela Lorenz PA 06/14/2024 3:41 PM Signed This note was created using Beakerriter. Subjective Khanh Dominguez is a 49 year old male. HPI 49-year-old male presents for right index finger infection. Patient states that he gets small cuts on his hands from working. 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 He states it was very superficial and not causing any issues. He states that about a week ago he noticed that it was getting red around the area and slightly swollen. He states it is tender to touch. He poked it several times with a needle, was only able to express blood. States today he poked it and got a little bit of pus drainage from the area. Still able to move the finger. No numbness or tingling. States that it is a throbbing pain from time to time. Has put alcohol on it. No fevers. No other complaint. History reviewed. No pertinent past medical history. No past surgical history on file. ALLERGIES Patient has no known allergies. MEDICATIONS doxycycline monohydrate 100 mg tablet Take 1 tablet by mouth two times a day for 7 days. mupirocin (BACTROBAN) 2 % ointment Apply to affected area three times a day for 7 days. fluticasone (FLONASE) 50 mcg/actuation nasal spray Use 1 [place] in each nostril daily at bedtime. (Patient not taking: Reported on 06/14/2024) No family history on file. Social History Tobacco Use Smoking status: Never Smokeless tobacco: Never Review of Systems Constitutional: Negative for chills and fever. HENT: Negative for congestion and sore throat. Respiratory: Negative for cough and shortness of breath. Gastrointestinal: Negative for diarrhea and vomiting. Skin: Positive for color change and wound. Objective BP 148/84 Pulse 85 Temp 36.8 ?C (98.3 ?F) (Tympanic) Resp 16 Wt 113.5 kg (250 lb 3.6 oz) SpO2 95% Physical Exam Vitals and nursing note reviewed. Constitutional: General: He is not in acute distress. Appearance: Normal appearance. He is not toxic-appearing. HENT: Nose: Nose normal. Mouth/Throat: Mouth: Mucous membranes are moist. Eyes: Conjunctiva/sclera: Conjunctivae normal. Cardiovascular: Rate and Rhythm: Normal rate and regular rhythm. Pulmonary: Effort: Pulmonary effort is normal. Breath sounds: Normal breath sounds. Musculoskeletal: Right hand: Swelling and tenderness present. Normal range of motion. Normal capillary refill. Normal pulse. Hands: Comments: Approximately 1.5 cm x 1.5 cm area of erythema and swelling noted over the right lateral index finger near the DIP joint. Normal flexion extension of the digit. Superficial healed abrasion present. Normal cap refill. No lymphatic streaking. No fluctuance or abscess. No drainage. Skin: General: Skin is warm and dry. Neurological: Mental Status: He is alert. Assessment and Plan ASSESSMENT/PLAN: 1. Skin infection - ICD9: 686.9, ICD10: L08.9 - Begin treatment with doxycycline -Rx for mupirocin - No lymphangetic streaking, this was defined for patient to watch for and to seek medical care immediately if appears -Tetanus is up-to-date -Follow-up in 3 to 5 days if no improvement in symptoms Diagnosis and treatment plan were discussed and questions were answered to the patient's satisfaction. Pt acknowledged understanding of concepts and follow up plan. Specific signs and symptoms that would indicate the need for higher level of care were discussed in detail warranting prompt ER evaluation. ANGELINE Napier Allergies As of Date: 06/14/2024 (No Known Allergies) Date Reviewed: 06/14/2024 Reviewed by: Shahla Sheffield LPN - Fully Assessed Reason for Visit: right index finger infection [Other] Cmt: X 2 weeks Primary Visit Diagnosis:Skin infection [L08.9] Order(s):doxycycline monohydrate 100 mg tabletTake 1 tablet by mouth two times a day for 7 days.Disp: 14 tabletRfl: 0 mupirocin (BACTROBAN) 2 % ointmentApply to affected area three times a day for 7 days.Disp: 15 gRfl: 0 Prescriptions as of 06/14/2024 - doxycycline monohydrate 100 mg tablet Take 1 tablet by mouth two times a day for 7 days. - mupirocin (BACTROBAN) 2 % ointment Apply to affected area three times a day for 7 days. - fluticasone (FLONASE) 50 mcg/actuation nasal spray Use 1 [place] in each nostril daily at bedtime. Problem List As Of Date: 06/14/2024 (None) Prescriptions ordered this encounter Disp Refills Start End DOXYCYCLINE MONOHYDRATE 100 MG TABLET 14 t* 0 06/14/2024 06/21/2024 Route: ORAL Sig: T (more content not included)... Normal [facility] Laboratory - Hematology and Cell countson 12-27-2023 HbA1c (Bld) [Mass fraction] 5.1 % Normal 4.6 - 7.1 % [facility], [facility].; [facility]. Free PSA [Mass/Vol]on 2023 Free PSA/Total PSA [Mass fraction] 13 % Normal [facility] Comment on above: Order Comment: Speci men Type: BLOOD SPECIMEN Ordering Facility: [facility] Address: [address] [place] [address] Result Comment: Tota l and free PSA test methodology used is the Electrochemiluminescence Immunoassay by [employer]. Total or free PSA values by differing methodologies cannot be interchanged. The below table lists the probability of finding prostate cancer upon needle biopsy, for men 50 years or older and total PSA concentrations from 4.0-10.0 ng/mL. Results should be interpreted within the broader clinical context. Free PSA(%) 50-59 years 60-69 years >69 years <11 49.2% 57.5% 64.5% 11-18 26.9% 33.9% 40.8% 19-25 18.3% 23.9% 29.7% >25 9.1% 12.2% 15.8% Performed By: #### 1 [id number] #### [facility] CLIA [id number] [address] [place] [address] [place] Prostate specific Ag [Mass/Vol] 3.37 ng/mL High <2.60 [facility] Comment on above: Order Comment: Speci men Type: BLOOD SPECIMEN Ordering Facility: [facility] Address: [address] [place] [address] Result Comment: Jose E morales PSA test methodology used is the Electrochemiluminescence Immunoassay by [employer]. Total PSA values by differing methodologies cannot be interchanged. For an individual patient, the significance of a PSA level should be interpreted in a broad clinical context, including age, race, family history, digital rectal exam, prostate size, results of prior testing (prostate biopsy, free PSA, PCA3), and use of 5-alpha reductase inhibitors. Considering the high incidence of asymptomatic cancer in the general population that may not pose an ultimate risk to a patient, the decision to recommend urological evaluation or prostate biopsy should be individualized after consideration of all these factors. REFERENCE: Leoncio Quintero M.D., M.P.H., Dave Stinson M.D., Ph.D., Som Juan M.D., Priscilla Pisano, M.P.H., Noemy Lambert, ScGrazyna. Effect of Verification Bias on Screening for Prostate Cancer by Measurement of Prostatic Specific Antigen. N Engl J Med 2003,349:335-42. Performed By: #### 1 [id number] #### [facility] CLIA [id number] [address] [place] [address] [place] Laboratory - Chemistry and C hemistry - challengeon 09-16-2023 Prostate specific Ag [Mass/Vol] 3.69 ng/mL Normal 0.00 - 4.00 ng/mL [facility] No Panel Informationon 09-15 PSA, Diagnostic 3.37 ng/mL Abnormal [facility], [facility].; [facility] [facility], [facility]. Work Phone: PSA, Percent Free 13 % Normal [facility], [facility].; [facility], [facility]. Work Phone: ECG 12 leadon 09-06-2023 Atrial Rate [facility] Q[facility]val [facility] Q-T Interval (corrected) [facility] QRS Duration [facility] QTC Calculation (Bezet) [facility] R [place] [facility] T [place] [facility] Ventricular Rate [facility] Laboratory - Chemistry and C hemistry - challengeon 04-15-2023 25-hydroxyvitamin D3 [Mass/Vol] 88.90 ng/mL Normal 30.00 - 100 ng/mL [facility] [employer] [employer] Albumin [Mass/Vol] 3.8 g/dL Normal 3.4 - 5.0 g/dL [employer], [place].; [employer] [employer] Albumin [Mass/Vol] 1.6 g/dL Normal 0.9 - 1.6 [employer] [facility], [employer] [place].; [employer] [employer] ALP [Catalytic activity/Vol] 76 U/L Normal 46 - 116 U/L [employer], [facility].; [employer] [employer] ALT [Catalytic activity/Vol] 57 U/L Normal 16 - 63 U/L [employer], [place].; [employer], [place]. ALT No additional P-5'-P [Catalytic activity/Vol] 57 U/L Normal 16 - 63 U/L [employer], [place].; [employer] [employer] Anion gap [Moles/Vol] 12 mmol/L Normal 10 - 2 0 mmol/L [employer] [employer] [employer] AST [Catalytic activity/Vol] 35 U/L Normal 15 - 37 U/L [employer], [place].; [employer] [employer] Bilirubin [Mass/Vol] 0.6 mg/dL Normal 0.2 - 1 .0 mg/dL [employer], [place].; [employer] [employer] Calcium [Mass/Vol] 8.5 mg/dL Normal 8.5 - 10. 1 mg/dL [employer], [place].; [employer] [employer] Chloride [Moles/Vol] 103 mmol/L Normal 98 - 10 7 mmol/L [employer] [employer] [employer] [employer] Cholesterol [Mass/Vol] 163 mg/dL Normal 0 - 2 40 mg/dL [employer], [place].; [employer] [employer] Cholesterol in HDL [Mass or moles/Vol] 50 mg/dL Normal 40 - 60 mg/dL [facility] Cholesterol in LDL [Mass/Vol] 107 mg/dL Normal 0 - 129 mg/dL [facility]; [facility] Cholesterol.total/Ana sterol in HDL [Mass ratio] 3.3 {ratio} Normal 0.0 - 5.0 [facility]; [facility] CO2 [Moles/Vol] 28.5 mmol/L Normal 21.0 - 32.0 mmol/L [facility]; [facility] Cobalamin (Vitamin B12) [Mass/Vol] 1450 pg/mL Abnormal 193 - 986 pg/mL [facility]; [facility] Comprehensive metabolic 2000 panel CMP with eGFR Normal [facility]; [facility] Creatinine [Mass/Vol] 1.05 mg/dL Normal 0.70 - 1.30 mg/dL [facility]. CRP [Mass/Vol] mg/L Normal 0.00 - 0.90 mg/dL [facility]; [facility], [facility] Free T3 [Mass/Vol] 3.3 pg/mL Normal 2.3 - 4.1 pg/mL [facility], [facility]. Free T4 [Mass/Vol] 0.84 ng/dL Normal 0.76 - 1.46 ng/dL [facility].; [facility], [facility]. GFR/1.73 sq M.predicted among blacks MDRD (S/P/Bld) [Vol rate/Area] mL/min/{1.73_m2} Normal 60 - 999 {ML/MINUTE } [facility], [facility].; [facility], [facility]. GFR/1.73 sq M.predicted MDRD (S/P/Bld) [Vol rate/Area] mL/min/{1.73_m2} Normal 60 - 999 {ML/MINUTE } [facility], [facility].; [facility], [facility] Globulin (S) [Mass/Vol] 2.4 g/dL Normal 1.5 - 3.8 g/dL [facility]; [facility] Glucose [Mass/Vol] 102 mg/dL Normal 74 - 106 mg/dL [facility]; [facility] Lipid 1996 panel LIPID PROFILE Normal [facility]; [facility] Potassium [Moles/Vol] 4.5 mmol/L Normal 3.5 - 5.1 mmol/L [facility]; [facility] Prostate specific Ag [Mass/Vol] 4.70 ng/mL Abnormal 0.00 - 4.00 ng/mL [facility]; [facility] Work Phone: Protein [Mass/Vol] 6.2 g/dL Abnormal 6.4 - 8.2 g/dL [facility]; [facility] Sodium [Moles/Vol] 139 mmol/L Normal 136 - 145 mmol/L [facility] Testosterone [Mass/Vol] 337.7 ng/dL Normal 300. 0 - 890.0 ng/dL [facility] Testosterone Free/Testosterone.total [Mass fraction] 77.4 ng/dL Normal 47.0 - 244.0 ng/dL [facility]; [employer] [facility]. Triglyceride [Mass/Vol] 32 mg/dL Normal 0 - 150 mg/dL [facility] TSH Qn 3.11 m[IU]/L Normal 0.35 - 3.74 {uIU/ml} [facility] [employer] [facility] Urea nitrogen [Mass/Vol] 23 mg/dL Abnormal 7 - 18 mg/dL [facility] Urea nitrogen/Creatinine [Mass ratio] 22 {ratio} Normal 0 - 30 {ratio} [facility].; [employer] [facility] Laboratory - Hematology and Cell countson 04-15-2023 Basophils (Bld) [#/Vol] 0.00 {3/UL} Normal 0.00 - 0.10 {3/UL} [facility] Basophils/100 WBC (Bld) 0.6 % Normal 0.0 - 2.0 % [facility]. CBC W Auto Differential panel (Bld) CBC + DIFF Normal [facility]; [facility], [facility] Eosinophils (Bld) [#/Vol] 0.30 {3/UL} Normal 0.00 - 0.50 {3/UL} [facility] Eosinophils/100 WBC (Bld) 4.1 % Normal 0.0 - 7.0 % [facility].; [facility], [facility] Erythrocyte distribution width (RBC) [Ratio] 13.5 % Normal 12.0 - 15.6 % [facility].; [employer] [facility], [facility]. HbA1c (Bld) [Mass fraction] 5.1 % Normal 4.3 - 5.6 % [facility], [facility] Hematocrit (Bld) [Volume fraction] 53.4 % Abnormal 40.0 - 52.0 % [facility], [facility] Hemoglobin (Bld) [Mass/Vol] 18.2 g/dL Abnormal 13.0 - 17.5 g/dL [facility].; [facility], [facility]. Lymphocytes (Bld) [#/Vol] 0.90 {3/UL} Normal 0.80 - 2.80 {3/UL} [facility].; [facility], [facility]. Lymphocytes/100 WBC (Bld) 14.3 % Abnormal 20.0 - 45.0 % [facility].; [facility], [facility]. MCH (RBC) [Entitic mass] 32 pg Normal 27 - 33 pg [facility].; [facility], [facility]. MCHC (RBC) [Mass/Vol] 34 {X10_3} Normal 32 - 3 6 {X10_3} [facility], [facility].; [employer] [facility], [facility]. MCV (RBC) [Entitic vol] 93 fL Normal 81 - 98 fL H [facility].; [facility] Monocytes (Bld) [#/Vol] 0.50 {3/UL} Normal 0.20 - 1.00 {3/UL} [employer]. Monocytes/100 WBC (Bld) 7.7 % Normal 0.0 - 10.0 % [employer], [place]. Morphology Roscoe (Bld) [Interp] N/A Normal [employer].; [employer], [place]. Neutrophils (Bld) [#/Vol] 4.50 {3/UL} Normal 1.50 - 7.10 {3/UL} [employer].; [employer], [place]. Neutrophils/100 WBC (Bld) 73.3 % Normal 46.0 - 76.0 % [employer].; [employer], [place]. Platelet mean volume (Bld) [Entitic vol] 8.5 fL Normal 6.4 - 10.5 fL [employer].; [employer], [place]. Platelets (Bld) [#/Vol] 308 {3/UL} Normal 150 - 450 {3/UL} [employer].; [employer], [place]. RBC (Bld) [#/Vol] 5.76 {6/UL} Normal 4.50 - 6.00 {6/UL} [employer].; [employer], [place]. WBC (Bld) [#/Vol] 6.1 {3/UL} Normal 4.5 - 10.8 {3/UL} [employer].; [employer]. No Panel Informationon 04-15 AGE 47 {years} Normal [employer].; [employer]. Cortisol 15.0 ug/dL Normal 4.8 - 19.5 ug/dL [employer].; [employer], [place]. Dihydrotestosterone 420.8 pg/mL Normal 106.0 - 719.0 pg/mL [employer].; [employer], [place]. Estradiol-17B 27 pg/mL Normal [employer].; [employer], [place]. Hemoglobin A0 100 mg/dL Normal [employer].; [facility]. MANUAL DIFF N/A Normal [facility] Prolactin 13.3 ng/mL Normal 4.0 - 15.2 ng/mL [facility].; [facility], [facility]. Testosterone,Fr Male 77.4 pg/mL Normal 47.0 - 244.0 pg/mL [facility].; [facility], [facility] Laboratory - Chemistry and C hemistry - challengeon 04-15-2022 Albumin [Mass/Vol] 4.3 g/dL Normal 3.9 - 4.9 g/dL [facility].; [facility], [facility]. ALP [Catalytic activity/Vol] 70 U/L Normal 38 - 113 U/L [facility].; [facility], [facility]. ALT [Catalytic activity/Vol] 52 U/L Normal 10 - 54 U/L [facility], [facility].; [facility], [facility]. Anion gap [Moles/Vol] 12 mmol/L Normal 9 - 18 mmol/L [facility].; [employer] [facility], [facility]. AST [Catalytic activity/Vol] 50 U/L Abnormal 14 - 40 U/L [facility].; [employer] [facility], [facility]. Bilirubin [Mass/Vol] 0.6 mg/dL Normal 0.2 - 1 .3 mg/dL [facility], [facility].; [employer] [facility], [facility]. Calcium [Mass/Vol] 9.5 mg/dL Normal 8.5 - 10. 2 mg/dL [facility].; [facility], [facility]. Chloride [Moles/Vol] 102 mmol/L Normal 97 - 10 5 mmol/L [facility], [facility].; [facility], [facility]. Cholesterol [Mass/Vol] 159 mg/dL Normal 0 - 2 40 mg/dL [facility].; [facility], [facility]. Cholesterol in HDL [Mass or moles/Vol] 48 mg/dL Normal 40 - 60 mg/dL [facility], [facility].; [employer] [facility]. Cholesterol in LDL [Mass/Vol] 101 mg/dL Normal 0 - 129 mg/dL [facility].; [facility] Cholesterol.total/Ana sterol in HDL [Mass ratio] 3.3 {ratio} Normal 0.0 - 5.0 [facility]; [facility] CO2 [Moles/Vol] 24 mmol/L Normal 22 - 30 mmol/L [facility].; [facility], [facility] Creatinine [Mass/Vol] 1.14 mg/dL Normal 0.73 - 1.22 mg/dL [facility]; [facility] Estrogen [Mass/Vol] 87.5 pg/mL Abnormal 19.0 - 69.0 pg/mL [facility]; [facility], [facility] Glucose [Mass/Vol] 82 mg/dL Normal 74 - 99 mg/dL [facility]; [facility] Lipid 1996 panel LIPID PROFILE Normal [facility]; [facility], [facility] Potassium [Moles/Vol] 4.3 mmol/L Normal 3.7 - 5.1 mmol/L [facility]; [facility], [facility] Prolactin [Mass/Vol] 23.8 ng/mL Abnormal 4.0 - 1 5.2 ng/mL [facility]; [facility], [facility] Prostate specific Ag [Mass/Vol] 4.38 ng/mL Abnormal 0.00 - 4.00 ng/mL [facility], [facility] Protein [Mass/Vol] 6.6 g/dL Normal 6.3 - 8.0 g/dL [facility]; [facility], [facility] Sodium [Moles/Vol] 138 mmol/L Normal 136 - 144 mmol/L [facility], [facility] Triglyceride [Mass/Vol] 50 mg/dL Normal 0 - 150 mg/dL [facility].; [facility], [facility]. Urea nitrogen [Mass/Vol] 32 mg/dL Abnormal 9 - 24 mg/dL [facility].; [facility], [facility] No Panel Informationon 04-15 Dihydrotestosterone 693.1 pg/mL Normal 106.0 - 719.0 pg/mL [facility]; [employer]. Estimated GlomerularFiltration Rate 81 {mL/min/1.ters_s} Normal [employer]. Estradiol 56.2 pg/mL Abnormal 10.0 - 42.0 pg/mL [employer], [place]. PANEL NAME PSA, FREE [CCL] Normal [employer].; [employer]. PANEL NAME ESTROGENS FRACTION [CCL] Normal [employer].; [employer], [place]. Work Phone: Testosterone, Free, S 80.1 ng/dL Abnormal 4.46 - 17.1 ng/dL [employer].; [employer]. Testosterone, Total, S 1270 ng/dL Abnormal 240 - 950 ng/dL [employer].; [employer]. Clinical Summary: Sarah donis 09-30-2021 [facility] OP Visit Invalid Interpretation Code [facility] Work Phone: No Panel Informationon 09-23 Dihydrotestosterone 290.2 pg/mL Normal 106.0 - 719.0 pg/mL [employer].; [employer], [place]. Estradiol Serum 16.4 pg/mL Normal 10.0 - 42.0 pg/mL [employer].; [employer], [place]. Estradiol-17B 29 pg/mL Normal [employer].; [employer], [place]. Estrogens Total 30.0 pg/mL Normal 19.0 - 69.0 pg/mL [employer].; [employer], [place]. Estrone Serum 13.6 pg/mL Normal 9.0 - 36.0 pg/mL [employer].; [employer]. Prolactin 17.8 ng/mL Abnormal 4.0 - 15.2 ng/mL [employer], [place].; [employer], [place]. Laboratory - Chemistry and C hemistry - challengeon 09-04-2021 Albumin [Mass/Vol] 3.9 g/dL Normal 3.4 - 5.0 g/dL [employer].; [facility]. Albumin [Mass/Vol] 1.3 g/dL Normal 0.9 - 1.6 [facility].; [facility]. ALP [Catalytic activity/Vol] 75 U/L Normal 46 - 116 U/L [facility].; [facility], [facility]. ALT [Catalytic activity/Vol] 64 U/L Abnormal 16 - 63 U/L [facility].; [facility]. ALT No additional P-5'-P [Catalytic activity/Vol] 64 U/L Abnormal 16 - 63 U/L [facility].; [employer] [facility]. Anion gap [Moles/Vol] 14 mmol/L Normal 10 - 2 0 mmol/L [facility].; [facility]. AST [Catalytic activity/Vol] 35 U/L Normal 15 - 37 U/L [facility].; [facility]. Bilirubin [Mass/Vol] 0.8 mg/dL Normal 0.2 - 1 .0 mg/dL [facility].; [employer] [facility]. Calcium [Mass/Vol] 8.5 mg/dL Normal 8.5 - 10. 1 mg/dL [facility].; [facility]. Chloride [Moles/Vol] 106 mmol/L Normal 98 - 10 7 mmol/L [facility].; [facility], [facility]. Cholesterol [Mass/Vol] 168 mg/dL Normal 0 - 2 40 mg/dL [facility].; [facility]. Cholesterol in HDL [Mass or moles/Vol] 45 mg/dL Normal 40 - 60 mg/dL [facility].; [facility]. Cholesterol in LDL [Mass/Vol] 116 mg/dL Normal 0 - 129 mg/dL [facility].; [facility], [facility]. Cholesterol.total/Ana sterol in HDL [Mass ratio] 3.7 {ratio} Normal 0.0 - 5.0 [facility].; [employer] [facility]. CO2 [Moles/Vol] 25.5 mmol/L Normal 21.0 - 32.0 mmol/L [facility], [facility]. Comprehensive metabolic 2000 panel CMP with eGFR Normal [facility]; [facility], [facility] Creatinine [Mass/Vol] 1.24 mg/dL Normal 0.70 - 1.30 mg/dL [facility], [facility]. GFR/1.73 sq M.predicted among blacks MDRD (S/P/Bld) [Vol rate/Area] mL/min/{1.73_m2} Normal 60 - 999 {ML/MINUTE } [facility].; [facility], [facility] GFR/1.73 sq M.predicted MDRD (S/P/Bld) [Vol rate/Area] mL/min/{1.73_m2} Normal 60 - 999 {ML/MINUTE } [facility], [facility].; [facility], [facility] Globulin (S) [Mass/Vol] 2.9 g/dL Normal 1.5 - 3.8 g/dL [facility], [facility] Glucose [Mass/Vol] 92 mg/dL Normal 74 - 106 mg/dL [facility], [facility] Lipid 1996 panel LIPID PROFILE Normal [facility]; [facility], [facility] Potassium [Moles/Vol] 3.9 mmol/L Normal 3.5 - 5.1 mmol/L [facility]; [facility], [facility] Prostate specific Ag [Mass/Vol] 4.43 ng/mL Abnormal 0.00 - 4.00 ng/mL [facility], [facility] Protein [Mass/Vol] 6.8 g/dL Normal 6.4 - 8.2 g/dL [facility], [facility].; [facility], [facility]. Sodium [Moles/Vol] 142 mmol/L Normal 136 - 145 mmol/L [facility], [facility].; [facility], [facility]. Testosterone [Mass/Vol] 928.3 ng/dL Abnormal 300. 0 - 890.0 ng/dL [facility], [facility].; [facility], [facility] Triglyceride [Mass/Vol] 35 mg/dL Normal 0 - 150 mg/dL [facility], [facility].; [employer]on[facility]oneless. Urea nitrogen [Mass/Vol] 29 mg/dL Abnormal 7 - 18 mg/dL [facility]. Urea nitrogen/Creatinine [Mass ratio] 23 {ratio} Normal 0 - 30 {ratio} [facility].; [facility]. No Panel Informationon 09-04 AGE 46 {years} Normal [facility]. Testosterone,Fr Male 368.7 pg/mL Abnormal 47.0 - 244.0 pg/mL [facility] [employer] [facility]. DIHYDROTESTOSTERONEon 2021 DIHYDROTESTOSTERONE, LC/MS/MS 114 ng/dL High 12-65 [employer] Comment on above: Result Comment: This test was developed and its analytical performance characteristics have been determined by [employer]. It has not been cleared or approved by FDA. This assay has been validated pursuant to the CLIA regulations and is used for clinical purposes. Performed By: #### 3 1348, 7600 #### [facility] [address], [address] [place] [address] Inventory Associate: Jack Stevenson MD #### [phone] #### [facility]/[address] [address] Inventory Associate: Nessa Herrmann MD,PhD,ILANA #### [id number] #### [facility]/[place] [id number] [facility] [place] [address] Inventory Associate: Frankie Cruz M.D.,PhD ESTROGEN, TOTAL, SERUMon ESTROGEN, TOTAL, SERUM 446.5 pg/mL High 60-190 Q [facility] Comment on above: Result Comment: The total estrogen assay is not recommended for use in pre-pubertal children. Performed By: #### 3 1348, 3830 #### [facility] [address], [address] [place] [address] Inventory Associate: Jack Stevenson MD #### [phone] #### [facility], [address] [place], [place] Inventory Associate: Nessa Herrmann MD,PhD,ILANA #### [id number] #### [facility]/[place] [address] [facility] [address] [place], [place] Inventory Associate: Frankie Cruz M.D.,PhD LIPID PANEL, [facility] Cholesterol [Mass/Vol] 163 mg/dL Normal <200 Qu est Diagnostics Comment on above: Performed By: #### 3 1348, 0260 #### [facility] [place] [id number] Inventory Associate: Jack Stevenson MD #### [phone] #### [facility], [address] [place], [place] Inventory Associate: Nessa Herrmann MD,PhD,ILANA #### [id number] #### [facility] [address] [place] Inventory Associate: Frankie Cruz M.D.,PhD Cholesterol in HDL [Mass/Vol] 33 mg/dL Low > OR = 40 [facility] Comment on above: Performed By: #### 3 1348, 1380 #### [facility] [place] [id number] Inventory Associate: Jack Stevenson MD #### [phone], [phone] #### [facility], [address] [place], [place] Inventory Associate: Nessa Herrmann MD,PhD,ILANA #### [phone] #### [facility]/[place] [address] [facility] [address] [place], [place] Inventory Associate: Frankie Cruz M.D.,PhD Cholesterol in LDL [Mass/Vol] 116 mg/dL High [email or web address] Comment on above: Result Comment: Refe rence range: <100 Desirable range <100 mg/dL for primary prevention; <70 mg/dL for patients with CHD or diabetic patients with > or = 2 CHD risk factors. LDL-C is now calculated using the Norbert calculation, which is a validated novel method providing better accuracy than the Friedewald equation in the estimation of LDL-C. Jesus HYDE et al. CHAYO. 2013;310(19): 8488-1609 (http://education.Prieto Battery/faq/WIB834) Performed By: #### 3 5808, 3150 #### [facility] [place] [address] Inventory Associate: Jcak Stevenson MD #### [phone] #### [facility]/[place] [address] [place] [address] Inventory Associate: Nessa Herrmann MD,PhD,ILANA #### [id number] #### [facility]/[address] [place], [place] Inventory Associate: Frankie Cruz M.D.,PhD Cholesterol.total/Ana sterol in HDL [Mass ratio] 4.9 {ratio} Normal <5.0 [facility] Comment on above: Performed By: #### 3 5417, 6110 #### [facility] [address], [address] [place], [place] [address] Inventory Associate: Jack Stevenson MD #### [phone] #### [facility] [address] [place] [address] Inventory Associate: Nessa Herrmann MD,PhD,ILANA #### [id number] #### [facility]/[place] [address] [facility] [address] [place], [place] Inventory Associate: Frankie Cruz M.D.,PhD NON HDL CHOLESTEROL 130 mg/dL (calc) High <130 [facility] Comment on above: Result Comment: For patients with diabetes plus 1 major ASCVD risk factor, treating to a non-HDL-C goal of <100 mg/dL (LDL-C of <70 mg/dL) is considered a therapeutic option. Performed By: #### 3 1348, 7600 #### [facility] [address], [address] [place] [address] Inventory Associate: Jack Stevenson MD #### [phone] #### [facility], [address] [place], [place] Inventory Associate: Nessa Herrmann MD,PhD,ILANA #### [id number] #### [facility] [place], [place] Inventory Associate: Frankie Cruz M.D.,PhD Triglyceride [Mass/Vol] 53 mg/dL Normal <150 Q [facility]est [facility] Comment on above: Performed By: #### 3 1348, 7600 #### [facility] [address], [address] [place] [address] Inventory Associate: Jack Stevenson MD #### [phone] #### [facility] [address] [place], [place] Inventory Associate: Nessa Herrmann MD,PhD,ILANA #### [id number] #### [facility] [place], [place] Inventory Associate: Frankie Cruz M.D.,PhD PSA (FREE AND TOTAL)on 06-24 PSA, % FREE 17 % (calc) Low >25 [facility] Comment on above: Result Comment: PSA(ng/mL) Free PSA(%) Estimated(x) Probability of Cancer(as%) 0-2.5 (*) Approx. 1 2.6-4.0(1) 0-27(2) 24(3) 4.1-10(4) 0-10 56 11-15 28 16-20 20 21-25 16 >or =26 8 >10(+) N/A >50 References:(1)Zachariah et al.:Urology 60: 469-474 (2001) (2)Zachariah et al.:J.Urol 168: 922-925 (2001) Free PSA(%) Sensitivity(%) Specificity(%) < or = 25 85 19 < or = 30 93 9 (3)Catalona et al.:CHAYO 277: 2581-5689 (1996) (4)Catalona et al.:CHAYO 279: 6510-3065 (1997) (x)These estimates vary with age, ethnicity, family history and ROXANNE results. (*)The diagnostic usefulness of % Free PSA has not been established in patients with total PSA below 2.6 ng/mL (+)In men with PSA above 10 ng/mL, prostate cancer risk is determined by total PSA alone. The Total PSA value from this assay system is standardized against the equimolar PSA standard. The test result will be approximately 20% higher when compared to the WHO-standardized Total PSA (Siemens assay). Comparison of serial PSA results should be interpreted with this fact in mind. PSA was performed using the Alina Tai Immunoassay method. Values obtained from different assay methods cannot be used interchangeably. PSA levels, regardless of value, should not be interpreted as absolute evidence of the presence or absence of disease. Performed By: #### 3 3518, 4088 #### [facility] [address], [address] [place] [address] Inventory Associate: Jack Stevenson MD #### [phone] #### [facility] [address] [place] [address] Inventory Associate: Nessa Herrmann MD,PhD,ILANA #### [id number] #### [facility] [address] [facility] [place] [address] Inventory Associate: Frankie Cruz M.D.,PhD PSA, FREE 0.8 ng/mL Normal [facility] Comment on above: Performed By: #### 3 1348, 7600 #### [facility] [address], [address] [place] [address] Inventory Associate: Jack Stevenson MD #### [phone] #### [facility], [address] [place] [address] Inventory Associate: Nessa Herrmann MD,PhD,ILANA #### [id number] #### [facility]/[address] [place], [place] Inventory Associate: Frankie Cruz M.D.,PhD PSA, TOTAL 4.6 ng/mL High < OR = 4.0 [facility] Comment on above: Performed By: #### 3 1348, 7600 #### [facility] [address], [address] [place] [address] Inventory Associate: Jack Stevenson MD #### [phone] #### [facility]/[place] [address] Inventory Associate: Nessa Herrmann MD,PhD,ILANA #### [id number] #### [facility]/[address] [place], [place] Inventory Associate: Frankie Cruz M.D.,PhD TESTOSTERONE, TOTAL, MSon TESTOSTERONE, TOTAL, [place] 2653 ng/dL High 250-1100 Q est Diagnostics Comment on above: Result Comment: For additional information, please refer to http://education.LuckyPennie.dbTwang/faq/ QklbbWljhadyfjeguUXTUPIWFS114 (This link is being provided for informational/ educational purposes only.) This test was developed and its analytical performance characteristics have been determined by [employer] [place], [place]. It has not been cleared or approved by the U.S. Food and Drug Administration. This assay has been validated pursuant to the CLIA regulations and is used for clinical purposes. Performed By: #### 3 1348, 7600 #### [facility] [address] [facility], [address] [place] [address] Inventory Associate: Jack Stevenson MD #### [phone] #### [facility] [address] [place] [address] Inventory Associate: Nessa Herrmann MD,PhD,ILANA #### [phone] #### [facility]/[place] [facility] [address] [facility] [place], [place] Inventory Associate: Frankie Cruz M.D.,PhD Laboratory - Chemistry and C hemistry - challengeon 06-15-2021 Cholesterol [Mass/Vol] 163 mg/dL Normal [facility] [employer] [facility], [facility].; [employer], [facility]. Cholesterol in HDL [Mass/Vol] 33 mg/dL Abnormal [facility], [facility].; [facility], [facility]. Cholesterol in LDL [Mass/Vol] 116 mg/dL Abnormal [facility], [facility].; [employer] Inc[employer] Triglyceride [Mass/Vol] 53 mg/dL Normal [facility], [facility].; [facility], [facility] No Panel Informationon 06-15 CHOL/HDLC RATIO 4.9 Normal [facility].; [employer], [place]. DIHYDROTESTOSTERONE, LC/MS/MS 114 ng/dL Abnormal 12 - 65 ng/dL [facility], [facility].; [employer], [facility]. ESTROGEN, TOTAL, SERUM 446.5 pg/mL Abnormal 60 - 190 pg/mL [facility] [employer], [facility].; [employer], [place]. NON HDL CHOLESTEROL 130 Abnormal [facility] [employer] [facility], [facility].; [employer], Inc[employer] PSA, % FREE 17 {%_(calc)} Abnormal [facility], [facility].; [employer], [place]. PSA, FREE 0.8 ng/mL Normal [facility], [facility].; [facility]. PSA, TOTAL 4.6 ng/mL Abnormal [facility].; [facility]. TESTOSTERONE, TOTAL, [place] 2653 ng/dL Abnormal 250 - 1100 ng/dL [facility].; [facility]. PSA (FREE AND TOTAL)on 01-14 PSA, % FREE 17 % (calc) Low >25 [facility] Comment on above: Result Comment: PSA(ng/mL) Free PSA(%) Estimated(x) Probability of Cancer(as%) 0-2.5 (*) Approx. 1 2.6-4.0(1) 0-27(2) 24(3) 4.1-10(4) 0-10 56 11-15 28 16-20 20 21-25 16 >or =26 8 >10(+) N/A >50 References:(1)Zachariah et al.:Urology 60: 469-474 (2001) (2)Zachariah et al.:J.Urol 168: 922-925 (2001) Free PSA(%) Sensitivity(%) Specificity(%) < or = 25 85 19 < or = 30 93 9 (3)Catalona et al.:CHAYO 277: 6928-9760 (1996) (4)Catalona et al.:CHAYO 279: 8357-0508 (1997) (x)These estimates vary with age, ethnicity, family history and ROXANNE results. (*)The diagnostic usefulness of % Free PSA has not been established in patients with total PSA below 2.6 ng/mL (+)In men with PSA above 10 ng/mL, prostate cancer risk is determined by total PSA alone. The Total PSA value from this assay system is standardized against the equimolar PSA standard. The test result will be approximately 20% higher when compared to the WHO-standardized Total PSA (Siemens assay). Comparison of serial PSA results should be interpreted with this fact in mind. PSA was performed using the Alina Sibley Immunoassay method. Values obtained from different assay methods cannot be used interchangeably. PSA levels, regardless of value, should not be interpreted as absolute evidence of the presence or absence of disease. Performed By: #### 3 1348 #### [facility] [address], [address] [place] [address] Inventory Associate: Jack Stevenson MD PSA, FREE 0.6 ng/mL Normal [facility] Comment on above: Performed By: #### 3 1348 #### [facility] [address] [place] [address], [address] [place] [address] Inventory Associate: Jack Stevenson MD PSA, TOTAL 3.5 ng/mL Normal < OR = 4.0 [facility] Comment on above: Performed By: #### 3 1348 #### [facility] [address] [place] [address], [address] [place] [address] Inventory Associate: Jack Stevenson MD No Panel Informationon 01-13 PSA, % FREE 17 {%_(calc)} Abnormal [facility], [facility].; [facility], [facility]. PSA, FREE 0.6 ng/mL Normal [facility].; [facility] [employer] [facility]. PSA, TOTAL 3.5 ng/mL Normal [facility].; [facility] [employer] [facility], [place]. TESTOSTERONE, TOTAL, MSon TESTOSTERONE, TOTAL, MS 264 ng/dL Normal 250-1100 Q [facility] Comment on above: Result Comment: For additional information, please refer to http://education.Modern Family Doctor/faq/ RbfbcDjcnyidpuwzsUNSPGSDXH398 (This link is being provided for informational/ educational purposes only.) This test was developed and its analytical performance characteristics have been determined by [employer] [place], [place]. It has not been cleared or approved by the U.S. Food and Drug Administration. This assay has been validated pursuant to the CLIA regulations and is used for clinical purposes. Performed By: #### 1 5983 #### [employer] [address] [facility] [place] [address] Inventory Associate: Frankie Cruz M.D.,PhD PSA, TOTALon 12-04-2020 PSA, TOTAL 5.7 ng/mL High < OR = 4.0 [facility] Comment on above: Result Comment: The total PSA value from this assay system is standardized against the WHO standard. The test result will be approximately 20% lower when compared to the equimolar-standardized total PSA (Alina Sibley). Comparison of serial PSA results should be interpreted with this fact in mind. This test was performed using the Siemens chemiluminescent method. Values obtained from different assay methods cannot be used interchangeably. PSA levels, regardless of value, should not be interpreted as absolute evidence of the presence or absence of disease. Performed By: #### 5 363 #### [facility] [address], [address] [place] [address] Inventory Associate: Jack Stevenson MD No Panel Informationon 12-03 PSA, TOTAL 5.7 ng/mL Abnormal [facility].; [facility], [facility]. TESTOSTERONE, TOTAL, MS 264 ng/dL Normal 250 - 1100 ng/dL [facility], [facility].; [facility] XR Foot - right AP and Later al and obliqueon 11-30-2020 IMPRESSION: No evidence of radiopaque foreign body. No acute bony finding. Army Officer: [facility] Transcribe Date/Time: Nov 30 2020 7:42P Dictated by : JOSE MIGUEL SEGURA MD This examination was interpreted and the report reviewed and electronically signed by: JOSE MIGUEL SEGURA MD on Nov 30 2020 7:44PM [facility] DIVISION OF RADIOLOGY * * *Final Report* * * DATE OF EXAM: Nov 30 2020 6:57PM WOX [id number] - XR FOOT 3V AP/LAT/OBL RT / PROCEDURE REASON: Puncture wound of right foot, initial encounter * * * * Physician Interpretation * * * * Right foot HISTORY: 45 years old Clinical information: Puncture wound of right foot, initial encounter Stepped on a broken plate last night. Puncture wound plantar surface by heel however pt points to a black spot on foot closer to the MTP joints indicated by the arrow for pain. TECHNIQUE: Images: XR FOOT 3V AP/LAT/OBL RT Comparison: None. RESULT: Findings: No evidence of radiopaque foreign body. No acute fracture There is a calcaneal enthesophyte at the origin of the plantar fascia. Mild spurring first MTP joint. DIVISION OF RADIOLOGY Provider, [facility] - 11/30/2020 * * *Final Report* * * DATE OF EXAM: Nov 30 2020 6:57PM WOX [id number] - XR FOOT 3V AP/LAT/OBL RT / PROCEDURE REASON: Puncture wound of right foot, initial encounter * * * * Physician Interpretation * * * * Right foot HISTORY: 45 years old Clinical information: Puncture wound of right foot, initial encounter Stepped on a broken plate last night. Puncture wound plantar surface by heel however pt points to a black spot on foot closer to the MTP joints indicated by the arrow for pain. TECHNIQUE: Images: XR FOOT 3V AP/LAT/OBL RT Comparison: None. RESULT: Findings: No evidence of radiopaque foreign body. No acute fracture There is a calcaneal enthesophyte at the origin of the plantar fascia. Mild spurring first MTP joint. IMPRESSION IMPRESSION: No evidence of radiopaque foreign body. No acute bony finding. Army Officer: [employer] Transcribe Date/Time: Nov 30 2020 7:42P Dictated by : JOSE MIGUEL SEGURA MD This examination was interpreted and the report reviewed and electronically signed by: JOSE MIGUEL SEGURA MD on Nov 30 2020 7:44PM EST [facility] Radiology Study observation (narrative) Liseth campbell [facility] XR Foot - right AP and Later al and obliqueOrdered By: [facility] Provider on 11-30-2020 [facility] Echocardiogram complete with bubble studyon 07-17-2020 Aortic valve area 1.289[address] [facility] AV mean gradient 10 mmHg [facility] EF 61.0775 % [facility] Patient Info Name: La Nena HAD SHOULTS Age: 45 years : 1975 Gender: Male Ht: 170 cm Wt: 100 kg BSA: 2.21 m2 BP: 142 / 90 mmHg Exam Date: 07/17/2020 11:08 AM Patient Status: Outpatient Care Center Manager: Ragini Abdalla,KARUNA, RDCS Exam Type: ECHOCARDIOGRAM COMPLETE W BUBBLE STUDY Study Info Indications - Aortic root dilatation [id number] BMI: 34.46 kg/m2 Summary 1. Moderate left ventricular concentric hypertrophy. 2. Left ventricular systolic function is normal, with ejection fraction estimated at 55 +/- 5%. 3. The left ventricular diastolic function is normal. 4. The aortic root is mildly dilated measuring 4.30 cm with an index of 1.95 cm/m2. 5. The proximal ascending aorta is dilated measuring 4.2 cm with an index of 2.04 cm/m2. 6. The aortic valve is bicuspid with fusion of the right and left coronary cusps with mildly thickened and mobile leaflets.. 7. There is mild to moderate aortic valve regurgitation without stenosis (limited visualization of the origin of the regurgitant jet), pressure half-time ~400 ms. 8. There is no comparison study available. History/Risk Factors Hypertension: Yes Family History: Coronary Artery Disease Procedure(s): Complete two-dimensional, color flow and Doppler transthoracic echocardiogram is performed. Left Ventricle Left ventricular chamber dimension is normal. Moderate left ventricular concentric hypertrophy. Left ventricular segmental wall motion is normal. The left ventricular diastolic function is normal. Left ventricular systolic function is normal, with ejection fraction estimated at 55 +/- 5%. Right Ventricle Right ventricular chamber dimension is normal. Right ventricular systolic function is normal. Left Atria Left atrial chamber dimension is borderline enlarged. Right Atria Right atrial chamber dimension is normal. Atrial Septum Patent foramen ovale (PFO) with trivial right to left shunting by agitated saline. Aortic Valve The aortic valve is bicuspid with fusion of the right and left coronary cusps with mildly thickened and mobile leaflets.. There is no aortic valve sclerosis. There is no aortic valve stenosis with a peak velocity of 2.4 m/s, mean gradient of 10 mmHg. There is mild to moderate aortic valve regurgitation without stenosis (limited visualization of the origin of the regurgitant jet), pressure half-time ~400 ms. Pulmonic Valve The pulmonic valve is normal. There is no pulmonic valve stenosis. There is trace pulmonic regurgitation. Mitral Valve The mitral valve has normal leaflets. There is no mitral valve stenosis. There is no mitral valve regurgitation. Tricuspid Valve The tricuspid valve leaflets are normal. There is no significant tricuspid valve stenosis. There is trace tricuspid valve regurgitation. The pulmonary artery systolic pressure could not be accurately estimated. Pericardium/Pleural The pericardium appears normal. There is no pericardial effusion. Inferior Vena Cava Normal inferior vena cava with >50% collapse upon inspiration consistent with Empty right atrial pressure. Aorta The aortic measurements are indexed to age and body surface area. The aortic root is mildly dilated measuring 4.30 cm with an index of 1.95 cm/m2. The proximal ascending aorta is dilated measuring 4.2 cm with an index of 2.04 cm/m2. Left Ventricular Outflow Tract Name Value Normal LVOT 2D LVOT Diameter 2.00 cm LVOT Doppler LVOT Peak Velocity 1.07 m/s LVOT Mean Gradient 2 mmHg LVOT VTI 23.20 cm LVOT VTI/AV VTI Ratio 0.45 LVOT Stroke Volume 72.85 ml LVOT Stroke Index 32.96 ml/m2 Mitral Valve Name Value Normal MV Annular TDI MV Septal e' Velocity 11.20 cm/s >=8.00 MV Lateral e' Velocity 8.92 cm/s >=10.00 MV e' Average 10.06 Aorta Name Value Normal Ascending Aorta Ao Root Diameter (2D) 4.30 cm 3.10-3.70 Ao Root Diam Index (2D) 1.95 cm/m2 1.50-1.90 Prox Asc Ao Diameter 4.5 cm 2.6-3.4 Prox Asc Ao Diameter Index 2.04 cm/m2 1.30-1.70 Aortic Valve Name Value Normal AV Doppler AV Peak Velocity 2.4 m/s AV Mean Gradient 10 mmHg AV VTI 51.70 cm AV Area (Cont Eq VTI) 1.41 cm2 AV Area (Cont Eq Joshua) 1.39 cm2 LVOT Vmax/AV Vmax 0.44 LVOT VTI/AV VTI Ratio 0.45 AV Regurgitation 2D LVOT Area 3.14 cm2 AV Regurgitation Doppler AR Decel [place] 252.00 cm/s2 AR PHT 534 ms Ventricles Name Value Normal LV Dimensions 2D/MM IVS Diastolic Thickness (2D) 1.41 cm 0.60-1.00 LVID Diastole (2D) 5.73 cm 4.20-5.80 LVIW Diastolic Thickness (2D) 1.42 cm 0.60-1.00 LVID Systole (2D) 4.01 cm 2.50-4.00 LVOT Diameter 2.00 cm LV Mass (2D Cubed) 366 g 88-224 LV Mass Index (2D Cubed) 166 g/m2 49-115 Relative Wall Thickness (2D) 0.50 <=0.42 LV Fractional Shortening/Ejection Fraction 2D/MM LV Fractional Shortening (2D) 30 % 25-43 LV Diastolic Volume (4C MOD) 120 ml LV Diastolic Volume (2C MOD) 63 ml LV Diastolic Volume (BP MOD) 89.10 ml 62.00-150.00 LV Diastolic Volume Index (BP MOD) 40.31 ml/m2 34.00-74.00 LV Systolic Volume (BP MOD) 34.70 ml 21.00-61.00 LV Systolic Volume Index (BP MOD) 15.70 ml/m2 11.00-31.00 LV EF (BP MOD) 61 % 55-70 LV Diastolic Length (4C) 7.73 cm LV Systolic Length (4C) 6.52 cm LV End Diastolic Volume (BP A-L) 92 ml LV End Systolic Volume (BP A-L) 35 ml LV EF (BP A-L) 62 % LV Stroke Volume (4C MOD) 62.80 ml RV Dimensions 2D/MM TAPSE 2.30 cm >=1.70 RV Systolic Function RV s' Velocity 0.13 m/s 0.10-0.19 Atria Name Value Normal LA Dimensions LA Dimension (2D) 4.00 cm 3.00-4.10 LA Dimen Index (2D) 1.81 cm/m2 LA Volume (4C A-L) 86.39 ml LA Volume (BP A-L) 66.56 ml LA Volume Index (BP A-L) 30.12 ml/m2 <=34.00 LA Volume (BP MOD) 62.90 ml LA Volume Index (BP MOD) 28.46 ml/m2 16.00-34.00 Report Signatures Finalized by Jean Foley MD on 07/17/2020 12:15 PM [facility] Interface, Rad In Heartlab Xper Echopacs - 07/17/2020 12:16 PM EST Patient Info Name: KHANH DOMINGUEZ Age: 45 years : 1975 Gender: Male Ht: 170 cm Wt: 100 kg BSA: 2.21 m2 BP: 142 / 90 mmHg Exam Date: 07/17/2020 11:08 AM Patient Status: Outpatient Care Center Manager: Ragini Abdalla,KARU[place], [facility] Exam Type: ECHOCARDIOGRAM COMPLETE W BUBBLE STUDY Study Info Indications - Aortic root dilatation [id number] BMI: 34.46 kg/m2 Summary 1. Moderate left ventricular concentric hypertrophy. 2. Left ventricular systolic function is normal, with ejection fraction estimated at 55 +/- 5%. 3. The left ventricular diastolic function is normal. 4. The aortic root is mildly dilated measuring 4.30 cm with an index of 1.95 cm/m2. 5. The proximal ascending aorta is dilated measuring 4.2 cm with an index of 2.04 cm/m2. 6. The aortic valve is bicuspid with fusion of the right and left coronary cusps with mildly thickened and mobile leaflets.. 7. There is mild to moderate aortic valve regurgitation without stenosis (limited visualization of the origin of the regurgitant jet), pressure half-time ~400 ms. 8. There is no comparison study available. History/Risk Factors Hypertension: Yes Family History: Coronary Artery Disease Procedure(s): Complete two-dimensional, color flow and Doppler transthoracic echocardiogram is performed. Left Ventricle Left ventricular chamber dimension is normal. Moderate left ventricular concentric hypertrophy. Left ventricular segmental wall motion is normal. The left ventricular diastolic function is normal. Left ventricular systolic function is normal, with ejection fraction estimated at 55 +/- 5%. Right Ventricle Right ventricular chamber dimension is normal. Right ventricular systolic function is normal. Left Atria Left atrial chamber dimension is borderline enlarged. Right Atria Right atrial chamber dimension is normal. Atrial Septum Patent foramen ovale (PFO) with trivial right to left shunting by agitated saline. Aortic Valve The aortic valve is bicuspid with fusion of the right and left coronary cusps with mildly thickened and mobile leaflets.. There is no aortic valve sclerosis. There is no aortic valve stenosis with a peak velocity of 2.4 m/s, mean gradient of 10 mmHg. There is mild to moderate aortic valve regurgitation without stenosis (limited visualization of the origin of the regurgitant jet), pressure half-time ~400 ms. Pulmonic Valve The pulmonic valve is normal. There is no pulmonic valve stenosis. There is trace pulmonic regurgitation. Mitral Valve The mitral valve has normal leaflets. There is no mitral valve stenosis. There is no mitral valve regurgitation. Tricuspid Valve The tricuspid valve leaflets are normal. There is no significant tricuspid valve stenosis. There is trace tricuspid valve regurgitation. The pulmonary artery systolic pressure could not be accurately estimated. Pericardium/Pleural The pericardium appears normal. There is no pericardial effusion. Inferior Vena Cava Normal inferior vena cava with >50% collapse upon inspiration consistent with Empty right atrial pressure. Aorta The aortic measurements are indexed to age and body surface area. The aortic root is mildly dilated measuring 4.30 cm with an index of 1.95 cm/m2. The proximal ascending aorta is dilated measuring 4.2 cm with an index of 2.04 cm/m2. Left Ventricular Outflow Tract Name Value Normal LVOT 2D LVOT Diameter 2.00 cm LVOT Doppler LVOT Peak Velocity 1.07 m/s LVOT Mean Gradient 2 mmHg LVOT VTI 23.20 cm LVOT VTI/AV VTI Ratio 0.45 LVOT Stroke Volume 72.85 ml LVOT Stroke Index 32.96 ml/m2 Mitral Valve Name Value Normal MV Annular TDI MV Septal e' Velocity 11.20 cm/s >=8.00 MV Lateral e' Velocity 8.92 cm/s >=10.00 MV e' Average 10.06 Aorta Name Value Normal Ascending Aorta Ao Root Diameter (2D) 4.30 cm 3.10-3.70 Ao Root Diam Index (2D) 1.95 cm/m2 1.50-1.90 Prox Asc Ao Diameter 4.5 cm 2.6-3.4 Prox Asc Ao Diameter Index 2.04 cm/m2 1.30-1.70 Aortic Valve Name Value Normal AV Doppler AV Peak Velocity 2.4 m/s AV Mean Gradient 10 mmHg AV VTI 51.70 cm AV Area (Cont Eq VTI) 1.41 cm2 AV Area (Cont Eq Joshua) 1.39 cm2 LVOT Vmax/AV Vmax 0.44 LVOT VTI/AV VTI Ratio 0.45 AV Regurgitation 2D LVOT Area 3.14 cm2 AV Regurgitation Doppler AR Decel [place] 252.00 cm/s2 AR PHT 534 ms Ventricles Name Value Normal LV Dimensions 2D/MM IVS Diastolic Thickness (2D) 1.41 cm 0.60-1.00 LVID Diastole (2D) 5.73 cm 4.20-5.80 LVIW Diastolic Thickness (2D) 1.42 cm 0.60-1.00 LVID Systole (2D) 4.01 cm 2.50-4.00 LVOT Diameter 2.00 cm LV Mass (2D Cubed) 366 g 88-224 LV Mass Index (2D Cubed) 166 g/m2 49-115 Relative Wall Thickness (2D) 0.50 <=0.42 LV Fractional Shortening/Ejection Fraction 2D/MM LV Fractional Shortening (2D) 30 % 25-43 LV Diastolic Volume (4C MOD) 120 ml LV Diastolic Volume (2C MOD) 63 ml LV Diastolic Volume (BP MOD) 89.10 ml 62.00-150.00 LV Diastolic Volume Index (BP MOD) 40.31 ml/m2 34.00-74.00 LV Systolic Volume (BP MOD) 34.70 ml 21.00-61.00 LV Systolic Volume Index (BP MOD) 15.70 ml/m2 11.00-31.00 LV EF (BP MOD) 61 % 55-70 LV Diastolic Length (4C) 7.73 cm LV Systolic Length (4C) 6.52 cm LV End Diastolic Volume (BP A-L) 92 ml LV End Systolic Volume (BP A-L) 35 ml LV EF (BP A-L) 62 % LV Stroke Volume (4C MOD) 62.80 ml RV Dimensions 2D/MM TAPSE 2.30 cm >=1.70 RV Systolic Function RV s' Velocity 0.13 m/s 0.10-0.19 Atria Name Value Normal LA Dimensions LA Dimension (2D) 4.00 cm 3.00-4.10 LA Dimen Index (2D) 1.81 cm/m2 LA Volume (4C A-L) 86.39 ml LA Volume (BP A-L) 66.56 ml LA Volume Index (BP A-L) 30.12 ml/m2 <=34.00 LA Volume (BP MOD) 62.90 ml LA Volume Index (BP MOD) 28.46 ml/m2 16.00-34.00 Report Signatures Finalized by Jean Foley MD on 07/17/2020 12:15 PM [facility] CT CALCIUM SCORE (CARDIOLOGI ST READ)on 06-10-2020 CALACX 0.00 [facility] CALALAD 0.00 [facility] CALALM 0.00 [facility] CALARCA 0.00 [facility] CALATOT 0.00 [facility] CALVCX 0.00 mm3 [facility] CALVLAD 0.00 mm3 [facility] CALVLM 0.00 mm3 [facility] CALVRCA 0.00 mm3 [facility] CALVTOT 0.00 mm3 [facility] Impression: Calculated Agatson Calcium Score: 0.00 No coronary artery or aortic calcification was detected, suggesting low short to intermediate term risk for cardiovascular events. REC: 1) Coronary artery risk factor management according to primary prevention guidelines. CALCIUM SCORE INTERPRETATION: 0 - No identifiable atherosclerotic plaque. Very low cardiovascular disease risk. Less than 5% chance of presence of coronary artery disease. A negative examination. 1-10 - Minimal plaque burden. Significant coronary artery disease very unlikely. 11-100 - Mild plaque burden. Likely mild or minimal coronary stenosis. 101-400 - Moderate plaque burden. Moderate non-obstructive coronary artery disease highly likely. Over 400-Extensive plaque burden. High likelihood of at least one significant coronary artery stenosis (greater than 50% diameter). CALCIUM SCORING OVERVIEW: Coronary calcium is a marker for plaque in a blood vessel or atherosclerosis (hardening of the arteries). The presence and amount of calcium detected in the coronary artery by the CT scan estimates the presence and amount of atherosclerotic plaque. These calcium deposits can appear years before the development of heart disease symptoms such as chest pain and shortness of breath. A calcium score is computed for each of the coronary arteries based upon the volume and density of the calcium deposits. This can be referred to as your calcified plaque burden. It does not correspond directly to the percentage of narrowing in the artery, but does correlate with the severity of the overall coronary atherosclerotic burden. This score is then used to determine the calcium percentile which compares your calcified plaque burden to that of other asymptomatic men and women of the same age. The calcium score, in combination with the percentile, enables your physician to determine your risk of developing symptomatic coronary artery disease, and to measure the progression of disease as well as the effectiveness of treatment. A score of zero indicates that there is no calcified plaque burden. This implies that there is no significant coronary artery narrowing and very low likelihood of a cardiac event over at least the next 3 years. It does not absolutely rule out the presence of soft, noncalcified plaque or totally eliminate the possibility of a cardiac event. A score greater than zero indicates at least some coronary artery disease. As the score increases, so does the likelihood of a significant coronary narrowing and the likelihood of a coronary event over the next 3 years. Similarly, the likelihood of a coronary event increases with increasing calcium percentiles. [facility] CT CALCIUM SCORE SCREENINGon 06-10-2020 Interface, Rad In Devaughn ji Speechq - 06/10/2020 2:31 PM EST EXAMINATION: CT CALCIUM SCORE SCREENING, SUPPLEMENTAL READ - 06/10/2020 COMPARISON: None. HISTORY: ORDERING SYSTEM PROVIDED HISTORY: family history of heart disease , hyperlipidemia, TECHNOLOGIST PROVIDED HISTORY: Illness/Other Reason for exam: family history of heart disease , hyperlipidemia Encounter Type: Initial Additional signs and symptoms: family history of heart disease , hyperlipidemia ORDERING SYSTEM PROVIDED DIAGNOSIS CODES: E78.5 Hyperlipidemia, unspecified hyperlipidemia type Z82.49 Family history of heart disease TECHNIQUE: A volume acquisition through the heart was obtained without IV contrast. Calcium scoring analysis to be performed by the Cardiology service and reported separately. Dose reduction techniques were achieved by using automated exposure control and/or adjustment of mA and/or kV according to patient size and/or use of iterative reconstruction technique. NONCARDIAC FINDINGS: Partially imaged is borderline ectasia of the aortic root, measuring 4.4 cm in width. The visualized portions of the descending thoracic aorta are normal in caliber, measuring 2.5 cm in AP dimension. No pericardial effusion, pleural effusion, or pneumothorax is identified. The visualized portions of the lungs are clear. No suspicious osseous lesion is identified. IMPRESSION: Partially imaged is borderline ectasia of the aortic root, measuring 4.4 cm in width. No active process is identified in the visualized portions of the chest. Please see the separate report per Cardiology for details regarding coronary artery calcium scoring. DSS/pji Workstation ID: [id number] [facility] EXAMINATION: CT CALC IUM SCORE SCREENING, SUPPLEMENTAL READ - 06/10/2020 COMPARISON: None. HISTORY: ORDERING SYSTEM PROVIDED HISTORY: family history of heart disease , hyperlipidemia, TECHNOLOGIST PROVIDED HISTORY: Illness/Other Reason for exam: family history of heart disease , hyperlipidemia Encounter Type: Initial Additional signs and symptoms: family history of heart disease , hyperlipidemia ORDERING SYSTEM PROVIDED DIAGNOSIS CODES: E78.5 Hyperlipidemia, unspecified hyperlipidemia type Z82.49 Family history of heart disease TECHNIQUE: A volume acquisition through the heart was obtained without IV contrast. Calcium scoring analysis to be performed by the Cardiology service and reported separately. Dose reduction techniques were achieved by using automated exposure control and/or adjustment of mA and/or kV according to patient size and/or use of iterative reconstruction technique. NONCARDIAC FINDINGS: Partially imaged is borderline ectasia of the aortic root, measuring 4.4 cm in width. The visualized portions of the descending thoracic aorta are normal in caliber, measuring 2.5 cm in AP dimension. No pericardial effusion, pleural effusion, or pneumothorax is identified. The visualized portions of the lungs are clear. No suspicious osseous lesion is identified. [facility] Partially imaged is borderline ectasia of the aortic root, measuring 4.4 cm in width. No active process is identified in the visualized portions of the chest. Please see the separate report per Cardiology for details regarding coronary artery calcium scoring. Bsmark/PartSimple Workstation ID: [id number] [facility] ECG 12-LEADon 05-13-2020 Atrial Rate [facility] P [place] [facility] P-R Interval [facility] Q-T Interval [facility] Q-T Interval (corrected) [facility] QRS Duration [facility] QTC Calculation (Bezet) [facility] R [place] [facility] T [place] [facility] Ventricular Rate [facility] Laboratory - Chemistry and C hemistry - challengeon 04-29-2020 Free T3 [Mass/Vol] 3.4 pg/mL Normal 2.3 - 4.2 pg/mL [facility], [facility].; [facility] Free T4 [Mass/Vol] 1.1 ng/dL Normal 0.8 - 1.8 ng/dL [facility], [facility].; [facility] TSH Qn 3.27 m[IU]/L Normal 0.40 - 4.50 {mIU/L} [facility] Laboratory - Hematology and Cell countson 04-29-2020 HbA1c (Bld) [Mass fraction] 4.9 % Normal [facility]; [facility], [facility] No Panel Informationon 04-29 CORTISOL, TOTAL, LC/MS 4.3 ug/dL Normal [facility]; [facility], [facility] CORTISOL,FREE,LC/MS,S 0.11 ug/dL Normal [facility]; [facility], [facility] DIHYDROTESTOSTERONE, LC/MS/MS 70 ng/dL Abnormal 12 - 65 ng/dL [facility]; [facility], [facility] ESTROGEN, TOTAL, SERUM 305.1 pg/mL Abnormal 60 - 190 pg/mL [facility]; [facility], [facility]. HS CRP <0.3 Normal [facility]; [facility] PROLACTIN 12.5 ng/mL Normal 2.0 - 18.0 ng/mL [facility]; [facility], [facility]. VITAMIN D,25-OH,TOTAL,IA 39 ng/mL Normal 30 - 100 ng/mL [facility]; [facility], [facility] Laboratory - Chemistry and C hemistry - challengeon 04-22-2020 Calcium [Mass/Vol] 9.2 mg/dL Normal 8.6 - 10. 3 mg/dL [facility]; [facility], [facility] Chloride [Moles/Vol] 101 mmol/L Normal 98 - 11 0 mmol/L [facility]; [facility], [facility]. Cholesterol [Mass/Vol] 145 mg/dL Normal [facility]; [facility], [facility] Cholesterol in HDL [Mass/Vol] 42 mg/dL Normal [facility], [facility]. Cholesterol in LDL [Mass/Vol] 89 mg/dL Normal [facility], [facility].; [employer] [facility], [facility]. CO2 [Moles/Vol] 25 mmol/L Normal 20 - 32 mmol/L [facility].; [facility], [facility] Creatinine [Mass/Vol] 1.24 mg/dL Normal 0.60 - 1.35 mg/dL [facility].; [employer] [facility], [facility]. GFR/1.73 sq M.predicted among blacks MDRD (S/P/Bld) [Vol rate/Area] 82 mL/min/{1.73_m2} Normal [facility], [facility].; [employer] [facility], [facility] Glucose [Mass/Vol] 82 mg/dL Normal 65 - 99 mg/dL [facility], [facility].; [employer] [facility], [facility]. Potassium [Moles/Vol] 4.6 mmol/L Normal 3.5 - 5.3 mmol/L [facility].; [employer] [facility], [facility]. Sodium [Moles/Vol] 137 mmol/L Normal 135 - 146 mmol/L [facility], [facility].; [employer] [facility], [facility]. Triglyceride [Mass/Vol] 56 mg/dL Normal [facility].; [employer] [employer] Urea nitrogen [Mass/Vol] 27 mg/dL Abnormal 7 - 25 mg/dL [facility].; [employer], [place]. Urea nitrogen/Creatinine [Mass ratio] 22 mg/mg Normal 6 - 22 [facility].; [employer], [place]. No Panel Informationon 04-22 CHOL/HDLC RATIO 3.5 Normal [facility] [employer] eGFR NON-AFR. MEXICAN 71 Normal [facility].; [employer] NON HDL CHOLESTEROL 103 Normal [facility].; [employer] [employer] PSA, TOTAL 2.3 ng/mL Normal [employer] [facility], [facility].; [place] [employer] TESTOSTERONE, FREE 577.7 pg/mL Abnormal 46.0 - 224.0 pg/mL [facility].; [employer] Op Noteon 02-14-2019 Op Note [facility] [address] [place] [id number] Dept: [phone] Loc: [phone] Operative Report Patient Name: Khanh Dominguez Date of : 1975 Date of Surgery: 02/14/19 Pre-operative diagnosis: Right distal femur osteochondroma x2 Post-operative diagnosis: Same Procedure(s): Resection right distal femur osteochondroma x2 Surgeon: Rm Black M.D. Surgery Attendant(s): Ector Snider M.D. Anesthesia: General EBL: Minimal IVF: Crystalloid Medications: Two grams of Cefazolin were given. Findings: Two pedunculated osteochondromas were identified and resected from the lateral aspect of the distal femur. The more proximal and anterior one was larger, about [id number], with a large pocket of bursal fluid surrounding the lesion. The smaller, more posterior one was about [id number]. Both lesions were resected back to stable base with minimal disruption of the distal femoral cortical bone. Clinical History/Indication for Surgery The patient is a 43 y.o. year old male with history of multiple hereditary exostosis, who presents for resection of symptomatic lesions at the lateral aspect of the distal femur. Typical indications for surgery were reviewed and resection was recommended. Risks of surgery in general were reviewed including, but not limited to, infection, fracture, need for additional procedures, knee stiffness, recurrence of symptoms, damage to normal structures as well as medical complications such as [place], stroke, PE, DVT, and even . Pt was given opportunity to ask questions and consider his options. He ultimately elected to proceed with surgery. No guarantees were given or implied. Operative Narration The patient was identified in the pre-operative holding area. The surgical site was identified and marked. Informed consent was obtained. The patient was then brought to the operating room and placed supine on the operating table. Anesthesia was administered and care of the head, neck, and airway was maintained by the anesthesia staff throughout the entire procedure. He was placed in the lateral decubitus position with an axillary roll. All bony prominences were identified and padded. The right lower extremity was then prepped and draped in the usual sterile fashion. A surgical timeout was performed. Antibiotics were confirmed to have been given. A longitudinal incision was made over the lateral aspect of the femur just anterior to the IT band. Electrocautery was used to obtain hemostasis and dissect down to vastus lateralis fascia. The fascia was incised and blunt dissection was used to mobilize the lateralis muscle belly anteriorly. The smaller, more posterior osteochondroma was first identified and the overlying fascia was incised allowing visualization of the cartilage cap. We dissected to the base of the lesion and a combination of rongeur and osteotomes were used to remove all prominent bone back to a stable base. Blunt dissection was then used to identify the larger, more proximal lesion. The cartilage cap was identified and upon dissection down to the base of the stalk, a large roberts of bursal fluid was identified surrounding the lesion. This lesion was also removed using a rongeur and osteotome to a stable base with no remaining bony prominence. Once it was felt the lesions were adequately resected, the wound was thoroughly irrigated with normal saline and bone wax was placed over the areas of bony resection for hemostasis. The vastus lateralis fascia was then closed using #0 vicryl suture, followed by closure of the subcutaneous tissue with 2-0 vicryl. Skin was closed using a running subcuticular 4-0 monocryl suture. Xeroform and gauze dressing was applied and secured with tegaderm. Mandeep wrap was applied. Once the patient was awakened from anesthesia, they were transported to the PACU in stable condition, having tolerated surgery well with no immediate complications. Dr Black was present for the entirety of the case. This operative report was prepared and signed by Ector Snider MD at 02/14/19, 9:41 AM Normal [facility] Surgical Pathologyon 019 Surgical Pathology [id number] [facility] PATHOLOGY AND LABORATORY MEDICINE [address] [place] [address] FINAL SURGICAL PATHOLOGY REPORT NAME: KHANH DOMINGUEZ : 1975 43 Y Juany MORRIS NO.: [id number] LOCATION: [facility] 1PAC 29 PROCEDURE 02/14/2019 DATE: SURGEON: RM BLACK M.D. RECEIVED 02/14/2019 DATE: ATTENDING: RM BLACK M.D. REPORT DATE: 02/25/2019 COPIES TO: DIAGNOSIS: RIGHT OSTEOCHONDROMA TUMOR, EXCISION - UNREMARKABLE OSTEOCARTILAGINOUS FRAGMENTS, CLINICALLY OSTEOCHONDROMA. SMT/SMT Signature> S KELVIN GARCIA M.D. CLINICAL INFORMATION: Osteochondroma SPECIMEN: BONE TUMOR, RESECTION GROSS DESCRIPTION: Right osteochondroma tumor Received in formalin are multiple pieces of bone and soft tissue measuring 3.5 x 3.5 x 1.0 cm in aggregate. The specimen is submitted entirely into three cassettes. (bits ns, 3) YRS/[facility] Disclaimer: The following statement applies to all immunohistochemistry, in situ hybridization, molecular studies, and immunofluorescence testing. The use of one or more reagents in the above tests is regulated as an analyte specific reagent (ASR). These tests were developed and their performance characteristics determined by the clinical laboratories of [facility]. They have not been cleared by the US Food and Drug Administration (FDA). The FDA has determined that such clearance or approval is not necessary. All the above immunostains were performed on paraffin embedded tissue. Appropriate positive and negative controls (where applicable) were run in parallel with the patient's specimen; these controls showed expected staining pattern, with acceptable intensity of staining. Immunohistochemical assays have not been validated on decalcified tissues. Results should be interpreted with caution given the raised possibility of false negativity on decalcified specimens. Professional Performing Location: [place] [address]. DEPARTMENT OF PATHOLOGY AND LABORATORY MEDICINE [place], [place] [address] [facility] Vital Signs Date Time Vital Sign Value Performing Clinician Facility 02-05-2025 15:55-0400 Body height 170.18 cm Adelinasully Liy DIE OPERATOR Work Phone: [facility]; [facility] 02-05-2025 15:55-0400 Body mass index (BMI) [Ratio] 37.28 kg/m2 Adelinasully Liy DIE OPERATOR Work Phone: [facility]; [facility] 02-05-2025 15:55-0400 Body surface area Derived from formula 2.18 m2 Adelina Liy DIE OPERATOR Work Phone: [facility]; [facility] 02-05-2025 15:55-0400 Body weight 107.96 kg Adelina Liy DIE OPERATOR Work Phone: [facility]; [facility] 02-05-2025 15:55-0400 Diastolic blood pressure 79 mm[Hg] Adelina Carolin DIE OPERATOR Work Phone: [facility]; [facility]. Comment on above: Patient Position: Si tting; Cuff Location: Left Arm; Cuff Size: Thigh 02-05-2025 15:55-0400 Heart rate 87 /min Adelina Liy DIE OPERATOR Work Phone: [facility]; [facility] Comment on above: Pattern: Regular 02-05-2025 15:55-0400 Systolic blood pressure 134 mm[Hg] Adelina Carolin DIE OPERATOR Work Phone: [facility]; [facility] Comment on above: Patient Position: Si tting; Cuff Location: Left Arm; Cuff Size: Thigh 09-11-2024 12:44-0400 Diastolic blood pressure 83 mm[Hg] Harrison Rakel SINGLE POINTED OPERATOR Work Phone: [facility] 09-11-2024 12:44-0400 Heart rate 76 /min Harrison Rakel SINGLE POINTED OPERATOR Work Phone: [facility] 09-11-2024 12:44-0400 Systolic blood pressure 145 mm[Hg] Harrison Rakel SINGLE POINTED OPERATOR Work Phone: [facility] 09-11-2024 12:42-0400 Body height 170.2 cm Harrison Rakel SINGLE POINTED OPERATOR Work Phone: [facility] 09-11-2024 12:42-0400 Body mass index (BMI) [Ratio] 37.59 kg/m2 Harrison Rakel SINGLE POINTED OPERATOR Work Phone: [facility] 09-11-2024 12:42-0400 Body weight 108.86 kg Harrison Rakel SINGLE POINTED OPERATOR Work Phone: [facility] 06-14-2024 15:31-0500 Body temperature 98.29 [degF] Krislyn Aberegg PA Work Phone: [facility] 06-14-2024 15:31-0500 Body weight 113.5 kg Krislyn Aberegg PA Work Phone: [facility] 06-14-2024 15:31-0500 Diastolic blood pressure 84 mm[Hg] Krislyn Aberegg PA Work Phone: [facility] 06-14-2024 15:31-0500 Heart rate 85 /min Krislyn Aberegg PA Work Phone: [facility] 06-14-2024 15:31-0500 Respiratory rate 16 /min Krislyn Aberegg PA Work Phone: [facility] 06-14-2024 15:31-0500 SaO2% (BldA) [Mass fraction] 95 % Krislyn Aberegg PA Work Phone: [facility] 06-14-2024 15:31-0500 Systolic blood pressure 148 mm[Hg] Krislyn Aberegg PA Work Phone: [facility] 12-27-2023 14:58-0400 Body height 170.18 cm Adelina Coe LPN [facility] 12-27-2023 14:58-0400 Body mass index (BMI) [Ratio] 36.02 kg/m2 Adelina Coe LPN Work Phone: [facility]; [facility] 12-27-2023 14:58-0400 Body surface area Derived from formula 2.15 m2 Adelina Coe LPN Work Phone: [facility]; [facility] 12-27-2023 14:58-0400 Body weight 104.33 kg Adelina Coe LPN Work Phone: [facility]; [facility] 12-27-2023 14:58-0400 Diastolic blood pressure 77 mm[Hg] Adelina Coe LPN Work Phone: [facility]; [facility] Comment on above: Patient Position: Si tting; Cuff Location: Left Arm; Cuff Size: Standard 12-27-2023 14:58-0400 Heart rate 70 /min Adelina Coe LPN Work Phone: [facility]; [facility]. Comment on above: Pattern: Regular 12-27-2023 14:58-0400 Systolic blood pressure 123 mm[Hg] Adelina Coe LPN Work Phone: [facility]; [facility]. Comment on above: Patient Position: Si tting; Cuff Location: Left Arm; Cuff Size: Standard 09-06-2023 12:07-0400 Diastolic blood pressure 77 mm[Hg] Harrison Rakel SINGLE POINTED OPERATOR Work Phone: [facility] 09-06-2023 12:07-0400 Heart rate 87 /min Harrison Rakel SINGLE POINTED OPERATOR Work Phone: [facility] 09-06-2023 12:07-0400 Systolic blood pressure 133 mm[Hg] Harrison Rakel SINGLE POINTED OPERATOR Work Phone: [facility] 09-06-2023 12:05-0400 Body height 170.2 cm Harrison Rakel SINGLE POINTED OPERATOR Work Phone: [facility] 09-06-2023 12:05-0400 Body mass index (BMI) [Ratio] 36.96 kg/m2 Harrison Rakel SINGLE POINTED OPERATOR Work Phone: [facility] 09-06-2023 12:05-0400 Body weight 107.05 kg Harrison Rakel SINGLE POINTED OPERATOR Work Phone: [facility] 05-02-2023 17:11-0500 Body temperature 98.49 [degF] Saul Pelayo HYDRATE THICKENER OPERATOR.SINGLE POINTED OPERATOR Work Phone: [facility] 05-02-2023 17:11-0500 Body weight 109.32 kg Saul Pelayo HYDRATE THICKENER OPERATOR.SINGLE POINTED OPERATOR Work Phone: [facility] 05-02-2023 17:11-0500 Diastolic blood pressure 82 mm[Hg] Saul Pelayo HYDRATE THICKENER OPERATOR.SINGLE POINTED OPERATOR Work Phone: [facility] 05-02-2023 17:11-0500 Heart rate 88 /min Saul Pelayo HYDRATE THICKENER OPERATOR.SINGLE POINTED OPERATOR Work Phone: [facility] 05-02-2023 17:11-0500 Respiratory rate 16 /min Saul Pelayo HYDRATE THICKENER OPERATOR.SINGLE POINTED OPERATOR Work Phone: [facility] 05-02-2023 17:11-0500 SaO2% (BldA) [Mass fraction] 97 % Saul Pelayo HYDRATE THICKENER OPERATOR.SINGLE POINTED OPERATOR Work Phone: [facility] 05-02-2023 17:11-0500 Systolic blood pressure 148 mm[Hg] Saul Pelayo HYDRATE THICKENER OPERATOR.SINGLE POINTED OPERATOR Work Phone: [facility] 06-30-2022 15:20-0500 Diastolic blood pressure 70 mm[Hg] Jake Juarez MD Work Phone: [facility]. Comment on above: Patient Position: Si tting; Cuff Location: Left Arm; Cuff Size: Standard 06-30-2022 15:20-0500 Systolic blood pressure 118 mm[Hg] Jake Juarez MD Work Phone: [facility] [address]; [facility]. Comment on above: Patient Position: Si tting; Cuff Location: Left Arm; Cuff Size: Standard 06-30-2022 14:31-0500 Body height 170.18 cm Jake Juarez MD Work Phone: [facility]; [facility]. 06-30-2022 14:31-0500 Body mass index (BMI) [Ratio] 37.59 kg/m2 Jake Juarez MD Work Phone: [facility]; [facility] 06-30-2022 14:31-0500 Body surface area Derived from formula 2.19 m2 Jake Juarez MD Work Phone: [facility]; [facility] 06-30-2022 14:31-0500 Body weight 108.86 kg Jake Juarez MD Work Phone: [facility]; [facility]. 06-30-2022 14:31-0500 Diastolic blood pressure 65 mm[Hg] Jake Juarez MD Work Phone: [facility]; [facility]. Comment on above: Patient Position: Si tting; Cuff Location: Left Arm; Cuff Size: Large 06-30-2022 14:31-0500 Heart rate 89 /min Jake Juarez MD Work Phone: [facility]; [facility]. Comment on above: Pattern: Regular 06-30-2022 14:31-0500 Systolic blood pressure 137 mm[Hg] Jake Juarez MD Work Phone: [facility]; [facility]. Comment on above: Patient Position: Si tting; Cuff Location: Left Arm; Cuff Size: Large 11-04-2020 14:24-0400 Body height 170.18 cm [facility] Work Phone: [facility]; [facility] 11-04-2020 14:24-0400 Body mass index (BMI) [Ratio] 35.55 kg/m2 Adelina Coe LPN Work Phone: [facility]; [facility] 11-04-2020 14:24-0400 Body surface area Derived from formula 2.13 m2 Adelina Carolin LPN Work Phone: [facility]; [facility] 11-04-2020 14:24-0400 Body weight 102.97 kg Adelinasully Coe LPN Work Phone: [facility]; [facility] 11-04-2020 14:24-0400 Diastolic blood pressure 84 mm[Hg] Adelina Carolin DIE OPERATOR Work Phone: [facility]; [facility]. Comment on above: Patient Position: Si tting; Cuff Location: Left Arm; Cuff Size: Large 11-04-2020 14:24-0400 Heart rate 80 /min Adelinasully Coe LPN Work Phone: [facility]; [facility] Comment on above: Pattern: Regular 11-04-2020 14:24-0400 Systolic blood pressure 168 mm[Hg] Adelina Coe LPN Work Phone: [facility]; [facility] Comment on above: Patient Position: Si tting; Cuff Location: Left Arm; Cuff Size: Large 05-13-2020 08:43-0500 BP Diastolic 83 mm[Hg] Luis Spencer [facility] 05-13-2020 08:43-0500 BP Systolic 144 mm[Hg] Luis Spencer [facility] 05-13-2020 08:43-0500 Pulse (Heart Rate) 81 /min Luis Spencer [facility] 05-13-2020 08:36-0500 BMI (Body Mass Index) 34.54 kg/m2 Luis Spencer [facility] 05-13-2020 08:36-0500 Body weight 100.02 kg Luis Spencer [facility] 05-13-2020 08:36-0500 Height 170.2 cm Luis Spencer [facility] 04-29-2020 13:46-0500 Body height 170.18 cm Adelina Liy DIE OPERATOR Work Phone: [facility]; [facility]. 04-29-2020 13:46-0500 Body mass index (BMI) [Ratio] 35.55 kg/m2 Adelina Carolin DIE OPERATOR Work Phone: [facility]; [facility]. 04-29-2020 13:46-0500 Body surface area Derived from formula 2.13 m2 Adelina Carolin DIE OPERATOR Work Phone: [facility]; [facility]. 04-29-2020 13:46-0500 Body weight 102.97 kg Adelina Liy DIE OPERATOR Work Phone: [facility]; [facility]. 04-29-2020 13:46-0500 Diastolic blood pressure 76 mm[Hg] Adelina Carolin DIE OPERATOR Work Phone: [facility]; [facility]. Comment on above: Patient Position: Si tting; Cuff Location: Left Arm; Cuff Size: Large 04-29-2020 13:46-0500 Heart rate 80 /min Adelina Liy DIE OPERATOR Work Phone: [facility]; [facility]. Comment on above: Pattern: Regular 04-29-2020 13:46-0500 Systolic blood pressure 131 mm[Hg] Adelina Carolin DIE OPERATOR Work Phone: [facility]; [facility]. Comment on above: Patient Position: Si tting; Cuff Location: Left Arm; Cuff Size: Large NEGATED: Highlighted [id number] 12:05-0400 Body height 170.18 cm [facility] Work Phone: NEGATED: Highlighted [id number] 12:05-0400 Body height 170 cm [facility] Work Phone: NEGATED: Highlighted [id number] 12:05-0400 Body mass index (BMI) [Ratio] 36.47 kg/m2 [facility] Work Phone: NEGATED: Highlighted [id number] 12:05-040 Body weight 105.24 kg [facility] Work Phone: NEGATED: Highlighted [id number] 12:05-0400 Body weight 105 kg [facility] Work Phone: Encounters Encounter Date Encounter Type Care Provider Facility Start: 04-13-2025 ambulatory JAKE JUAREZ [facility] Start: 04-12-2025 End: 04-12-2025 ambulatory Jake Juarez Facility:[facility] Start: 02-05-2025 End: 02-05-2025 Patient encounter procedure Jake Juarez MD Work Phone: [employer] [facility] Start: 02-05-2025 End: 02-05-2025 Patient encounter status Adelina Coe LPN Work Phone: [facility]. Start: 02-05-2025 Follow-up encounter Jake shaw MD Work Phone: [facility]. Start: 10-17-2024 End: 10-17-2024 Historical Summary Jake Juarez MD Work Phone: [facility]. Start: 10-16-2024 End: 10-16-2024 Follow-up encounter Harrison Ellington CNP Work Phone: [facility] Comment on above: CT Angiogram Thoraci c Aorta Start: 10-16-2024 ambulatory JAKE JUAREZ [facility] Start: 10-11-2024 End: 10-11-2024 ambulatory HARRISON MAYTE RAKEL [facility] Start: 10-08-2024 End: 10-08-2024 ambulatory HARRISON MAYTE RAKLE [facility] Start: 09-11-2024 End: 09-11-2024 Follow-up encounter Harrison Mayte Rakel SINGLE POINTED OPERATOR Work Phone: [facility] Comment on above: Ascending aorta dila tion (HCC) (Primary Dx) Start: 09-11-2024 End: 09-11-2024 Office outpatient visit 15 minutes Harrison Mayte Rakel SINGLE POINTED OPERATOR Work Phone: [facility] Comment on above: Hypertension, unspec ified type (Primary Dx); Ascending aorta dilation (HCC); Bicuspid aortic valve Start: 09-11-2024 End: 09-12-2024 ambulatory [facility] Start: 09-09-2024 End: 09-09-2024 Orders Only Harrison Mayte Rakel SINGLE POINTED OPERATOR Work Phone: [facility] Comment on above: Ascending aorta dila tion (HCC) (Primary Dx); Bicuspid aortic valve Start: 08-07-2024 End: 08-07-2024 Refill Luis Spencer MD Work Phone: [facility] Comment on above: Medication Refill Start: 07-15-2024 End: 07-15-2024 Historical Summary Jake Juarez MD Work Phone: [facility] [place]. Start: 07-12-2024 End: 07-12-2024 ambulatory JAKE JUAREZ [facility] Start: 07-12-2024 End: 07-12-2024 Orders Jake Juarez MD Work Phone: [facility] [place] Start: 07-10-2024 End: 07-10-2024 ambulatory JAKE JURAEZ [facility] Start: 07-10-2024 End: 07-10-2024 Subsequent hospital visit by physician Baldev Krueger [facility] Comment on above: Encounter for screen ing for cardiovascular disorders Start: 07-10-2024 End: 07-10-2024 David Juarez MD Work Phone: [facility] Start: 07-09-2024 End: 07-09-2024 ambulatory [facility] Start: 07-05-2024 End: 07-05-2024 Orders Jake Juarez MD Work Phone: [facility] Start: 06-14-2024 End: 06-14-2024 Patient encounter procedure Angela MARCUS Work Phone: [facility] Comment on above: Skin infection (Prim magdalena Dx) Start: 06-14-2024 End: 06-14-2024 ambulatory Facility:[facility] Start: 06-03-2024 End: 06-03-2024 ambulatory [facility] Start: 06-03-2024 End: 06-03-2024 Orders Jake Juarez MD Work Phone: [facility] Start: 12-28-2023 End: 12-28-2023 Orders Jake Juarez MD Work Phone: [facility] Start: 12-28-2023 Review Jake goodman MD Work Phone: [facility] Start: 12-27-2023 End: 12-27-2023 Office outpatient visit 25 minutes Jake Juarez MD Work Phone: [facility] Start: 12-01-2023 End: 12-01-2023 ambulatory [facility] Start: 11-29-2023 End: 11-29-2023 Orders Jake Juarez MD Work Phone: [facility] Start: 11-20-2023 Refill Luis Spencer MD Work Phone: [facility] Comment on above: Medication Refill Start: 10-18-2023 End: 10-18-2023 Orders Jake Juarez MD Work Phone: [facility] Start: 09-06-2023 End: 09-06-2023 Historical Summary Jake Juarez MD Work Phone: [facility] Start: 09-06-2023 End: 09-06-2023 Office outpatient visit 15 minutes Harrison Mayte Rakel SINGLE POINTED OPERATOR Work Phone: [facility] Comment on above: Aortic valve insuffi ciency, etiology of cardiac valve disease unspecified (Primary Dx); Ascending aorta dilation (HCC); Bicuspid aortic valve Start: 09-05-2023 Orders Only Harrison Mayte Rakel SINGLE POINTED OPERATOR Work Phone: [facility] Comment on above: Aortic valve insuffi ciency, etiology of cardiac valve disease unspecified (Primary Dx) Start: 08-25-2023 Refill Luis Spencer MD Work Phone: [facility] Comment on above: Medication Refill Start: 07-20-2023 End: 07-20-2023 Orders Jake Juarez MD Work Phone: [facility] Start: 06-09-2023 Orders Only Luis Spencer MD Work Phone: [facility] Comment on above: Aortic valve insuffi ciency, etiology of cardiac valve disease unspecified (Primary Dx); Ascending aorta dilatation (HCC) Start: 05-03-2023 End: 05-03-2023 Orders Jake Juarez MD Work Phone: [facility] Start: 05-02-2023 End: 05-02-2023 Office outpatient visit 15 minutes Saul Pelayo APRN.SINGLE POINTED OPERATOR Work Phone: [facility] Comment on above: Sinobronchitis (Prim magdalena Dx) Start: 04-25-2023 End: 04-25-2023 Orders Jake Juarez MD Work Phone: [facility] Start: 04-13-2023 End: 04-14-2023 Orders Jake Juarez MD Work Phone: [employer]. Start: 12-29-2022 Refill Shen Chinchilla angel LOPEZ Work Phone: [facility] Comment on above: Medication Refill Start: 06-30-2022 End: 06-30-2022 Patient encounter procedure Jake Juarez MD Work Phone: [employer]. Start: 06-30-2022 End: 06-30-2022 Patient encounter status Adelina Coe ADELE Work Phone: [employer]. Start: 06-16-2022 Refill Luis Spencer MD Work Phone: [facility] Comment on above: Medication Refill Start: 05-22-2022 End: 05-22-2022 Phone Encounter Jake Juarez MD Work Phone: [employer]. Start: 03-10-2022 End: 03-10-2022 Orders Jake Juarez MD Work Phone: [employer]. Start: 03-01-2022 Refill Luis Spencer MD Work Phone: [facility] Comment on above: Medication Refill Start: 09-20-2021 End: 09-20-2021 Orders Jake Juarez MD Work Phone: [employer]. Start: 09-01-2021 End: 09-01-2021 Orders Jake Juarez MD Work Phone: [employer]. Start: 08-10-2021 Refill Luis Spencer MD Work Phone: [facility] Comment on above: Medication Refill Start: 06-15-2021 End: 06-15-2021 Orders Jake Juarez MD Work Phone: [employer]. Start: 06-14-2021 Refill Luis Spencer MD Work Phone: [facility] Comment on above: Medication Refill Start: 06-07-2021 End: 06-07-2021 Orders Jake Juarez MD Work Phone: [facility] Start: 03-31-2021 End: 03-31-2021 Historical Summary Jake Juarez MD Work Phone: [facility] Start: 01-18-2021 End: 01-18-2021 Orders Jake Juarez MD Work Phone: [facility] Start: 01-13-2021 End: 01-13-2021 Orders Jake Juarez MD Work Phone: [facility] Start: 12-07-2020 End: 12-07-2020 Orders Jake Juarez MD Work Phone: [facility] Start: 12-03-2020 End: 12-03-2020 Orders Jake Juarez MD Work Phone: [facility] Start: 12-01-2020 End: 12-02-2020 Orders Jake Juarez MD Work Phone: [facility] Start: 11-30-2020 End: 11-30-2020 Subsequent hospital visit by physician Daphney [facility] Work Phone: Radiology Comment on above: Puncture wound of ri ght foot, initial encounter [S91.331A] Start: 11-04-2020 End: 11-04-2020 Patient encounter procedure Jake Juarez MD Work Phone: [facility] Start: 07-17-2020 End: 07-17-2020 Subsequent hospital visit by physician Luis Spencer Work Phone: [facility] Comment on above: Aortic root dilatati on (HCC) Start: 06-10-2020 End: 06-10-2020 Subsequent hospital visit by physician Luis Spencer Work Phone: [facility] Comment on above: Hyperlipidemia, unsp ecified hyperlipidemia type; Family history of heart disease; Hyperlipidemia Start: 05-13-2020 End: 05-13-2020 Office outpatient new 30 minutes Luis Victor Hugo Spencer Work Phone: [facility] Comment on above: Hyperlipidemia, unsp ecified hyperlipidemia type (Primary Dx); Abnormal EKG; Family history of heart disease Start: 04-29-2020 End: 04-28-2020 Historical Summary Jake Juarez MD Work Phone: [facility] Start: 04-29-2020 End: 04-29-2020 Patient encounter procedure Jake Juarez MD Work Phone: [facility] Start: 04-29-2020 End: 04-29-2020 Patient encounter status Jake Juarez MD Work Phone: [facility]; [facility] Start: 04-22-2020 End: 04-22-2020 Orders Jake Juarez MD Work Phone: [facility] Start: 04-21-2020 End: 04-21-2020 Orders Jake Juarez MD Work Phone: [facility] Start: 04-01-2020 End: 04-01-2020 Orders Jake Juarez MD Work Phone: [facility] Start: 03-30-2020 End: 03-30-2020 Orders Jake Juarez MD Work Phone: [facility] Procedures Date Procedure Procedure Detail Performing Clinician Start: 02-05-2025 End: 02-05-2025 Depression screening Jake Juarez MD Work Phone: Start: 02-05-2025 End: 02-05-2025 Scr dep neg, no plan reqd Jake lei MD Work Phone: Start: 02-05-2025 End: 02-06-2025 Standardized cognitive performance testing Jake Juarez MD Work Phone: Comment on above: score 23. repeat 6 m os Start: 09-11-2024 Ecg routine ecg w/le ast 12 lds w/i&r Harrison Mayte Rakel SINGLE POINTED OPERATOR Work Phone: Start: 07-13-2024 End: 07-13-2024 coronary calcium score Jake meyers MD Work Phone: Comment on above: Within Normal Limits . 07/13/24 score is zero Start: 07-12-2024 PSA screening JAKE HERNANDEZ Comment on above: Performed By: #### [id number] #### [facility],[address] [place] [address] Start: 07-09-2024 End: 07-09-2024 Lipid panel Adelina Coe DIE OPERATOR Work Phone: Comment on above: Normal. tc 161 hdl 4 6 ldl 107 trig 38 Start: 07-09-2024 End: 07-09-2024 Prostate specific antigen measurement Adelina Carolin LPN Work Phone: Comment on above: Abnormal. 4.88 Start: 07-05-2024 End: 07-15-2024 Ct heart no contrast quant eval coronry calcium Jake Juarez MD Work Phone: Start: 09-06-2023 Ecg routine ecg w/le ast 12 lds w/i&r Harrison Mayte Rakel SINGLE POINTED OPERATOR Work Phone: Start: 07-15-2022 End: 07-15-2022 FAITH Jake Campbell Work Phone: Comment on above: 07/15/22 Ao root 4.3 cm, ascending Ao 4.4cm Start: 06-30-2022 End: 06-30-2022 Body mass index documented Jake Juarez MD Work Phone: Start: 06-30-2022 End: 06-30-2022 Depression screening Jake Juarez MD Work Phone: Start: 06-30-2022 End: 06-30-2022 Scr dep neg, no plan reqd Jake lei MD Work Phone: Start: 04-15-2022 End: 04-15-2022 Lab findings surveillance Adelina Morales PN Work Phone: Comment on above: 82 Start: 04-15-2022 End: 04-15-2022 Lipid panel Adelina Coe DIE OPERATOR Work Phone: Comment on above: Normal. tc 159 hdl 4 8 ldl 101 trig 50 Start: 04-15-2022 End: 04-15-2022 Prostate specific antigen measurement Adelina Coe DIE OPERATOR Work Phone: Comment on above: Abnormal. 4.3 Start: 09-30-2021 End: 09-30-2021 Betamethasone acet&sod phosp Haroon Summers MD Work Phone: Start: 09-30-2021 End: 09-30-2021 BP scrn no perf at interval Haroon Summers MD Work Phone: Start: 09-30-2021 End: 09-30-2021 Calc BMI abv up char f/u Haroon zamorano MD Work Phone: Start: 09-30-2021 End: 09-30-2021 Current tobacco non-user cad cap copd pv dm Haroon Summers MD Work Phone: Start: 09-30-2021 End: 09-30-2021 Docrev cur meds by elig clin Haroon Summers MD Work Phone: Start: 09-30-2021 End: 09-30-2021 Injection 1 tendon sheath/ligament aponeurosis Haroon Summers MD Work Phone: Start: 09-30-2021 End: 09-30-2021 Pain neg no plan Haroon Campbell Work Phone: Start: 09-30-2021 End: 09-30-2021 Patient encounter procedure Haroon Summers MD Work Phone: Start: 03-24-2021 End: 03-24-2021 right radial steroid injection Adelina Coe DIE OPERATOR Work Phone: Comment on above: [facility] Start: 11-30-2020 Radex foot complete minimum 3 views Ector Sequeira ARTURO Work Phone: Start: 07-17-2020 Echo tthrc r-t 2d w/wom-mode compl spec&colr d Luis Victor Hugo Spencer Work Phone: Start: 06-10-2020 Cardiac computed tomography for calcium scoring Luis Victor Hugo Spencer Work Phone: Start: 06-10-2020 CT of intrathoracic cardiovascular structures Luis Victor Hugo Spencer Work Phone: Start: 05-13-2020 12 lead ECG Luis Dunne olimpia BurksJohanna Work Phone: Start: 04-29-2020 End: 04-29-2020 Body mass index documented Jake Juarez MD Work Phone: Start: 04-29-2020 End: 04-29-2020 Current tobacco non-user cad cap copd pv dm Jake Juarez MD Work Phone: Start: 04-29-2020 End: 04-29-2020 Depression screening Jake Juarez MD Work Phone: Start: 04-29-2020 End: 04-29-2020 Most recent diastolic blood pressure < 80 mm hg Jake Juarez MD Work Phone: Start: 04-29-2020 End: 04-29-2020 Most recent systolic blood press 130-139mm hg Jake Juarez MD Work Phone: Start: 04-29-2020 End: 04-29-2020 Scr dep neg, no plan reqd Jake lei MD Work Phone: Screening colonoscopy Adelina Coe DIE OPERATOR Work Phone: Comment on above: not done yet Screening colonoscopy Adelina Coe DIE OPERATOR Work Phone: Comment on above: not done yet NEGATED: Highlighted rowStart: 09-30-2021 End: 09-30-2021 Documentation of current medications [facility] Plan of Treatment Date Care Activity Detail Author Start: 11-30-2030 DTaP/Tdap/Td Vaccines (2 - Td or Tdap) DTaP/Tdap/Td Vaccines (2 - Td or Tdap) [facility] Start: 11-30-2030 Tetanus vaccination Tetanus: Every 10yrs [facility] Start: 11-30-2030 Urine microalbumin profile DTaP,Tdap,Td Vaccine (2 - Td or Tdap) [facility] Start: 2027 Zoster Vaccines (1 of 2) Zoster Vaccines (1 of 2) [facility] Start: 04-15-2026 Diabetes Screening Diabetes Screening [facility] Start: 09-17-2025 End: 09-17-2025 Patient encounter procedure [facility] Start: 09-10-2025 End: 11-11-2026 Echocardiography Echocardiogram complete Echocardiography Routine Ascending aorta dilation (HCC) Expected: 09/10/2025, Expires: 11/11/2026 [facility] Work Phone: Comment on above: Expected: 09/10/2025, Expires: Start: 02-17-2025 Influenza vaccination Influenza Vaccine (Season Ended) [facility] Start: 02-05-2025 Standardized cognitive performance testing ASSESSMENT USING KARLY COGNITIVE ASSESSMENT TOOL (50510) Start: 05-Feb-2025 Intent Comments: score 23. repeat 6 mos [facility]. Comment on above: score 23. repeat 6 mos Start: 09-12-2024 End: 09-11-2025 Creatinine [Mass/volume] in Serum or Plasma Creatinine, serum Lab Routine Ascending aorta dilation (HCC) Expected: 09/12/2024 (Approximate), Expires: 09/11/2025 [facility] Comment on above: Expected: 09/12/2024 (Approximate), Expi res: 09/11/2025 Start: 09-12-2024 End: 09-11-[address] Angiogram Thoracic Aorta Imaging Routine Ascending aorta dilation (HCC) Expected: 09/12/2024, Expires: 09/11/2025 [facility] Work Phone: Comment on above: Expected: 09/12/2024, Expires: Start: 09-11-2024 End: 09-11-2024 Patient encounter procedure [facility] Start: 07-12-2024 Assay of prostate specific antigen total PSA TOTAL (PROSTATE SPECIFIC ANTIGEN) (67554) Start: 12-Jul-2024 09:23-05:00 Request [employer].; [employer], [place]. Start: 07-12-2024 Hemoglobin glycosylated a1c HEMOGLOBIN A1C* (88609) Start: 12-Jul-2024 09:22-05:00 Request [employer].; [employer], [place]. Start: 07-10-2024 Assay of ferritin FERRITIN (40700) Start: 10-Jul-2024 Request [employer].; [employer], [place]. Start: 07-10-2024 Iron binding capacity IRON BINDING CAPACITY (TIBC) (13822) Start: 10-Jul-2024 Request [employer].; [employer], [place]. Start: 07-05-2024 Comprehensive metabolic panel CMP w/ GFR* (83976) Start: 05-Jul-2024 Request [employer].; [employer], [place]. Start: 07-05-2024 Ct heart no contrast quant eval coronry calcium COMPUTERIZED TOMOGRAPHY MEASUREMENT OF CALCIUM SCORE OF CORONARY ARTERY (91900) Start: 05-Jul-2024 Intent [employer].; [employer], [place]. Start: 07-05-2024 Assay of testosterone total TESTOSTERONE TOTAL, LC/MS/MS (MALE) (09808) Start: 05-Jul-2024 13:43-05:00 Request [employer].; [employer], [place]. Start: 07-05-2024 Lipid panel LIPID PANEL (42556) Start: 05-Jul-2024 13:43-05:00 Request [employer].; [employer] Start: 07-05-2024 Dehydroepiandrosterone-farnsworth lfate DHEA-S (DEHYDROEPIANDROSTERONE SULFATE), Immunoassay (93029) Start: 05-Jul-2024 13:43-05:00 Request [employer].; [employer]. Start: 07-05-2024 Assay of estradiol Estradiol (43597) Start: 05-Jul-2024 13:43-05:00 Request [employer].; [employer]. Start: 07-05-2024 Blood count complete auto&auto difrntl wbc CBC, PLATELETS & AUT DIFF (F) (70920) Start: 05-Jul-2024 13:42-05:00 Request [employer].; [employer]. Start: 06-03-2024 Assay of testosterone total TESTOSTERONE TOTAL, LC/MS/MS (MALE) (31565) Start: 03-Jun-2024 Request [employer]; [employer]. Start: 06-03-2024 Comprehensive metabolic panel CMP w/ GFR* (37809) Start: 03-Jun-2024 09:13-05:00 Request [employer]; [employer]. Start: 02-18-2024 Covid-19 Vaccine ( season) Covid-19 Vaccine ( season) [facility] Start: 02-18-2024 Influenza vaccination [facility] Start: 12-27-2023 Patient encounter procedure Medical; EXTENDED RTN - rtn for meds [employer]. Start: 27-Dec-2023 14:50-04:00 MD Jake Juarez Appointment Request [employer] Start: 10-18-2023 Assay of prostate specific antigen total [employer]; [employer]. Start: 09-06-2023 End: 09-06-2023 Patient encounter procedure [facility] Start: 08-09-2023 End: 08-10-2024 Echocardiography Echocardiogram complete Echocardiography Routine Aortic valve insufficiency, etiology of cardiac valve disease unspecified Ascending aorta dilatation (HCC) Expected: 08/09/2023 (Approximate), Expires: 08/10/2024 [facility] Work Phone: Comment on above: Expected: 08/09/2023 (Approximate), Expi res: 08/10/2024 Start: 08-09-2023 End: 08-09-2023 Patient encounter procedure 08/09/2023 12:40 PM EST Office Visit [facility] [address] [place] [id number] Harrison Ellington CNP [address] [place] [address] [facility] Start: 07-20-2023 Assay of prostate specific antigen total PSA FREE AND TOTAL (96741, 63556)--FROZEN Start: 20-Jul-2023 [facility]. Start: 02-17-2023 COVID-19 Vaccine () COVID-19 Vaccine () [facility] Start: 02-17-2023 Influenza vaccination [facility] Start: 07-15-2022 End: 07-15-2022 Patient encounter procedure 07/15/2022 Appointment Cardiology Luis Spencer MD [address] [place] [address] [facility] Start: 06-19-2022 Depression Assessment Depression Assessment [facility] Start: 2022 Cologuard (FIT-DNA) Cologuard (FIT-DNA) [facility] Start: 2022 Colonoscopy Colonoscopy [facility] Start: 2022 Colorectal Cancer Screening Colorectal Cancer Screening [facility] Start: [address] Colonography [facility] Start: 2022 Fecal Occult Blood Fecal Occult Blood [facility] Start: 2022 Screening for malignant neoplasm of colon [facility] Start: 2022 Sigmoidoscopy Sigmoidoscopy [facility] Start: 02-17-2022 Influenza vaccination Sequential Influenza Vaccine (#1) [facility] Start: 09-30-2021 End: 09-30-2021 Patient encounter procedure Appointment [facility] Work Phone: Start: 06-21-2021 End: 01-03-2022 Patient encounter procedure 06/21/2021 Appointment Cardiology Luis Spencer MD [address] [place] [address] [facility] Start: 02-17-2021 Influenza vaccination Sequential Influenza Vaccine (#1) [facility] Start: 05-20-2020 End: 05-20-2020 Appointment 05/20/2020 Appointment Radiology Luis Spencer MD [address] [place] [address] [phone] [facility] Start: 05-14-2020 End: 05-13-2021 Cardiac computed tomography for calcium scoring CT CALCIUM SCORE SCREENING Imaging Routine Hyperlipidemia, unspecified hyperlipidemia type Family history of heart disease Expected: 05/14/2020 (Approximate), Expires: 05/13/2021 [facility] Comment on above: Expected: 05/14/2020 (Approximate), Expi res: 05/13/2021 Start: 02-18-2020 Influenza vaccination given Sequential Influenza Vaccine (#1) [facility] Start: 2012 Lipid 1996 panel - Serum or Plasma Lipid Screening [facility] Start: 2012 Lipid panel Lipid Screening [facility] Start: 1996 Hepatitis B Vaccine (1 of 3 - 19+ 3-dose series) Hepatitis B Vaccine (1 of 3 - 19+ 3-dose series) [facility] Start: 1996 Hepatitis B Vaccines (1 of 3 - 19+ 3-dose series) Hepatitis B Vaccines (1 of 3 - 19+ 3-dose series) [facility] Start: 1995 Anxiety Screening Anxiety Screening [facility] Start: 1995 Depression Screening Depression Screening [facility] Start: 1995 Hepatitis C antibody, confirmatory test Hepatitis C Screening [facility] Start: 1995 Hepatitis C screening Hepatitis C Screening [facility] Start: 1995 Hepatitis C Screening Hepatitis C Screening [facility] Start: 1995 HIV Screening HIV Screening [facility] Start: 1995 HIV screening HIV Screening [facility] Start: 1992 HIV screening HIV Screening [facility] Start: 1989 Adolescent depression screening assessment Depression Screening (PHQ9) [facility] Start: 1989 Depression screening using PHQ-9 (Patient Health Questionnaire 9) score [facility] Start: 1982 COVID-19 Vaccine (1) COVID-19 Vaccine (1) [facility] Start: 1980 History and physical examination, annual for health maintenance Wellness Visit [facility] Start: 1978 MMR Vaccines (1 of 1 - Standard series) MMR Vaccines (1 of 1 - Standard series) [facility] Start: 1977 COVID-19 Vaccine (#1) COVID-19 Vaccine (#1) [facility] Start: 1977 Hepatitis B Vaccine (1 of 3 - 3-dose series) Hepatitis B Vaccine (1 of 3 - 3-dose series) [facility] Start: 1977 HIV screening HIV Screening [facility] Start: 1977 Lipid panel Lipid Panel [facility] Start: 1977 Prostate specific antigen measurement PSA Level [facility] Start: 1977 Screening for malignant neoplasm of colon [facility] Start: 1977 Tetanus vaccination Tetanus: Every 10yrs [facility] Start: 1977 Yearly Adult Physical Yearly Adult Physical [facility] End: 09-04-2024 12 lead ECG ECG 12 lead ECG Routine Aortic valve insufficiency, etiology of cardiac valve disease unspecified 1 Occurrences starting 09/05/2023 until 09/04/2024 [facility] Work Phone: Comment on above: 1 Occurrences starting 09/05/2023 until 09/04/2024 End: 09-09-2026 12 lead ECG ECG 12 Lead ECG Routine Ascending aorta dilation (HCC) Bicuspid aortic valve 1 Occurrences starting 09/09/2024 until 09/09/2026 [facility] Work Phone: Comment on above: 1 Occurrences starting 09/09/2024 until 09/09/2026 End: 07-10-2024 CT for calcium scoring WO contrast and CTA W contrast IV Heart and coronary arteries [facility] Work Phone: Comment on above: Once for 1 Occurrences starting 07/10/19 until 07/10/2024 Immunizations Immunization Date Immunization Notes Care Provider Fa lisa 11-30-2020 tetanus toxoid, reduced diphtheria toxoid, and acellular pertussis vaccine, adsorbed Saul Pelayo 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 2024 Unknown [id number] 2022 Private Health Insurance [id number] 2022 Managed Care (unspecified) [employer] HMO/NTWK/OACCESS/OA+/POS [id number] 2022 Private Health Insurance [id number] 2018 Unknown [employer]IS[employer]/PREF/HMO/PPO [id number] 2018-Present [id number] 2018 Unknown [id number] 1977 Unknown [id number]. 2.297 1977 Unknown [id number] [id number]. 2.900 1977 Unknown [id number]. [id number] 1977 Unknown [id number] [id number]. [id number] 1977 Unknown [id number] [id number]. 2.651 1977 Unknown [id number]. [id number] 1977 Unknown [id number]. [id number] 1977 Unknown [id number]. 2.651 1977 Unknown [id number] [id number] Unknown [id number] [id number] Social History Date Type Detail Facility Start: 05-11-2020 End: 05-02-2023 Tobacco smoking status DCIS Never smoker [facility] Start: 05-11-2020 Tobacco use and exposure Former user [facility] End: 06-19-2014 History of tobacco use Chews Tobacco [facility] Start: 05-11-2020 End: 09-11-2024 Alcohol intake Ex-drinker (finding) [facility] Start: 1975 Sex Assigned At Not on file [facility] Start: 10-31-2020 End: 07-10-2024 Exposure to SARS-CoV-2 (event) Not sure [facility] Start: 09-30-2021 End: 09-30-2021 Assertion Unknown if ever smoked [facility] Work Phone: Start: 05-11-2020 End: 09-11-2024 History of Social function [facility] Start: 05-11-2020 End: 09-11-2024 Tobacco use panel [facility] Start: 12-13-2019 End: 05-02-2023 Tobacco use and exposure Smokeless tobacco non-user [facility] Work Phone: National Score (1-100), lower number is lower risk Not on file [facility] Tobacco Use: Tobacco Use: ; N ever smoker. [facility] Male [facility] [place]. Work Phone: Medical Equipment Procedure Code Equipment Code Equipment Origin al Text Equipment Identifier Dates [id number] Start: 06-09-2023 [id number] Start: 12-27-2023 End: 12-28-2023 Comment on above: 1 box of 100 pen needle, diabetic 31 gauge x 5/16 ; 1 (one) needle, disposable at bedtime for 0 days Quantity: 100 {Each} Refills: 3 Ordered: 28-Dec-2023 ADELE Coe Start: 28-Dec-2023 [id number] Start: 12-28-2023 Clinical Notes 11-30-2020 to 10-16-2024 Telephone Encounter - Suki Hilton RN - 10/16/2024 3:12 PM EDTTelephone Encounter - Suki Hilton RN - 10/16/2024 3:12 PM EDTTelephone Encounter - Suki Hilton RN - 10/16/2024 3:10 PM EDT Note Date & Type Note Facility 10-16-2024 Telephone encounter Note Reviewed results and recommendations with patient. Denies ever smoking. Verbalizes understanding. [facility] 10-16-2024 Miscellaneous Notes Reviewed results and recommendations with patient. Denies ever smoking. Verbalizes understanding. ----- Message from Vineet Ellington sent at 10/16/2024 2:51 PM EDT ----- This is measuring his aorta at 4.2 cm, which is better than the echo. There is an incidental finding of a very small lung nodule. If he smoked in the past, he should have a repeat CT in 1 year to evaluate, if he didn't he doesn't need follow up. ----- Message ----- From: Yanet Zuleta MA Sent: 10/16/2024 2:43 PM EDT To: Harrison Ellington CNP documented in this encounter [facility] 10-16-2024 Telephone encounter Note ----- Message from Vineet Ellington sent at 10/16/2024 2:51 PM EDT ----- This is measuring his aorta at 4.2 cm, which is better than the echo. There is an incidental finding of a very small lung nodule. If he smoked in the past, he should have a repeat CT in 1 year to evaluate, if he didn't he doesn't need follow up. ----- Message ----- From: Yanet Zuleta MA Sent: 10/16/2024 2:43 PM EDT To: Harrison Ellington CNP [facility] 09-11-2024 Telephone encounter Note Spoke with patient and relayed that Harrison Ellington reviewed echo and saw that ascending aorta was 4.4 and now 4.6 and we will be ordering a CTA to get a better picture Advised he will l;ikely need creatinen done before his CT to check on kidney function before dye is given He would like this done at [facility] in [place] CTA thoracic aorta ordered and message sent to have orders faxed to outlying \ [facility] 09-11-2024 Telephone encounter Note ----- Message from T Rakel sent at 09/11/2024 3:01 PM EDT ----- Aortic root is unchanged. Ascending aorta slightly larger 4.6 (from 4.4 cm). Would like to get a CTA to make sure these measurements are accurate. He can do it closer to home. ----- Message ----- From: Greg Bailey In [employer] Sent: 09/11/2024 2:03 PM EDT To: Harrison Ellington CNP [facility] 09-11-2024 Miscellaneous Notes Spoke with patient and relayed that Harrison Ellington reviewed echo and saw that ascending aorta was 4.4 and now 4.6 and we will be ordering a CTA to get a better picture Advised he will l;karlie need creatinen done before his CT to check on kidney function before dye is given He would like this done at [facility] in [place] CTA thoracic aorta ordered and message sent to have orders faxed to [facility] \ ----- Message from T Rakel sent at 09/11/2024 3:01 PM EDT ----- Aortic root is unchanged. Ascending aorta slightly larger 4.6 (from 4.4 cm). Would like to get a CTA to make sure these measurements are accurate. He can do it closer to home. ----- Message ----- From: Greg Bailey In [employer] Sent: 09/11/2024 2:03 PM EDT To: Harrison Ellington CNP documented in this encounter [facility] 09-11-2024 Instructions Yolanda Bernard MA - 09/11/2024 12:57 PM EDT We will see you back in the office: In 1 year with Harrison Ellington CNP- scheduling with reach out to you to schedule. Please call in February if you have not been contacted. We will be scheduling you for the following testing: Echocardiogram in 1 year, same day as follow up with Harrison Ellington CNP. Please call in February if you have not been contacted. To schedule testing please reach out to [phone] and follow the prompts to scheduling If you need to cancel or reschedule an appointment please call [phone]. If you have any questions please call nurse directly at [phone]. documented in this encounter [facility] 09-11-2024 History of Presen t illness Narrative Interventional Cardiology Clinic Follow-up Heart & Vascular [facility] 09/11/2024 Harrison Ellington CNP [address] [facility] [address] Patient: Khanh Dominguez Date of : 1975 (49 y.o.) PCP: Jake Juarez MD Assessment & Plan Aorta dilation: - has been having yearly echocardiograms - last echo 09/06/23 with 4.4 cm aortic root, proximal ascending aorta 4.4 cm - TTE today - results pending - consider CTA if enlarged - yearly surveillance and refer to CTS when close to 5 cm - follow up in 1 year or sooner if needed Bicuspid AV: - echo last year with mild AR, mild , EF 55% - continue surveillance yearly Hypertension: - Continue current medical therapy with lisinopril - reinforced lifestyle modifications including controlling blood glucose and lipids, healthy diet (DASH or Mediterranean diet), moderate alcohol consumption, no more than 2,400 mg/day of sodium, and aodhgslk-yn-clypibok activity 3-4 days a week for 40 minutes. Follow-up: Return in about 1 year (around 09/11/2025) for same day as echocardiogram . Chief Complaint: Follow-up (TWO APPTS/1 year aortic dilation /) Subjective History of Present Illness: Khanh Dominguez is a 49 y.o. male with family history of coronary artery disease, and dilated ascending aorta who presents for follow up. He had a Calcium score due to his strong family history of coronary artery disease that showed a calcium score of 0, but aortic root dilation of 4.4 cm. He has known bicuspid AV and mild dilation of the aorta. His last office visit was 09/06/23 he was doing well from a cardiac standpoint. He continues to deny any chest pain pressure or palpitations. He continues to exercise but has gained some weight over the winter. He states he had a calcium score of 0 recently but showed some hepatosplenomegaly. He was encouraged to follow up with his PCP. Exam is unremarkable. Objective Tobacco Use Smoking Status Never Smokeless Tobacco Former Types: Chew Quit date: 2014 Imaging: I independently reviewed the EKG and agree with the interpretation(s) with the following comments. NSR with incomplete RBBB, similar to prior ECG 12 Lead Final Result by Harrison Ellington CNP (09/11/2024 1243) Echocardiogram complete Final Result by Slick Velasquez MD (09/11/2024 1403) Echocardiogram complete with bubble study Final Result by Jean Foley MD (07/17/2020 1216) HOME Medications: Patient's Medications New Prescriptions No medications on file Previous Medications LANTUS SOLOSTAR U-100 INSULIN 100 UNIT/ML (3 ML) INPN Inject 15 (fifteen) Units under the skin at bedtime . TESTOSTERONE CYPIONATE 200 MG/ML KIT Inject 0.25 mL (50 mg total) into the shoulder, thigh, or buttocks . Modified Medications Modified Medication Previous Medication LISINOPRIL (PRINIVIL,ZESTRIL) 10 MG TABLET lisinopriL (PRINIVIL,ZESTRIL) 10 MG tablet Take 1 (one) tablet (10 mg total) by mouth daily . Take 1 (one) tablet (10 mg total) by mouth daily . Discontinued Medications No medications on file Physical Examination: BP (!) 145/83 (BP Location: Left arm, Patient Position: Sitting, BP Cuff Size: X-large Adult) Pulse 76 Ht 5' 7 Wt 108.9 kg (240 lb) BMI 37.59 kg/m No results found for: CHOL, LDLCALC, LDLDIRECT, TRIG, HDL Creatinine clearance cannot be calculated (No successful lab value found.) documented in this encounter [facility] 09-11-2024 Note Interventional Cardi ology Clinic Follow-up Heart & Vascular [facility] 09/11/2024 Harrison Ellington CNP [address] [facility] [address] [facility] [address] Patient: Khanh Dominguez Date of : 1975 (49 y.o.) PCP: Jake Juarez MD Assessment & Plan Aorta dilation: - has been having yearly echocardiograms - last echo 09/06/23 with 4.4 cm aortic root, proximal ascending aorta 4.4 cm - TTE today - results pending - consider CTA if enlarged - yearly surveillance and refer to CTS when close to 5 cm - follow up in 1 year or sooner if needed Bicuspid AV: - echo last year with mild AR, mild , EF 55% - continue surveillance yearly Hypertension: - Continue current medical therapy with lisinopril - reinforced lifestyle modifications including controlling blood glucose and lipids, healthy diet (DASH or Mediterranean diet), moderate alcohol consumption, no more than 2,400 mg/day of sodium, and nljpsrae-so-zowlvhdv activity 3-4 days a week for 40 minutes. Follow-up: Return in about 1 year (around 09/11/2025) for same day as echocardiogram . Chief Complaint: Follow-up (TWO APPTS/1 year aortic dilation /) Subjective History of Present Illness: Khanh Dominguez is a 49 y.o. male with family history of coronary artery disease, and dilated ascending aorta who presents for follow up. He had a Calcium score due to his strong family history of coronary artery disease that showed a calcium score of 0, but aortic root dilation of 4.4 cm. He has known bicuspid AV and mild dilation of the aorta. His last office visit was 09/06/23 he was doing well from a cardiac standpoint. He continues to deny any chest pain pressure or palpitations. He continues to exercise but has gained some weight over the winter. He states he had a calcium score of 0 recently but showed some hepatosplenomegaly. He was encouraged to follow up with his PCP. Exam is unremarkable. Objective Tobacco Use Smoking Status Never Smokeless Tobacco Former Types: Chew Quit date: 2014 Imaging: I independently reviewed the EKG and agree with the interpretation(s) with the following comments. NSR with incomplete RBBB, similar to prior ECG 12 Lead Final Result by Harrison Ellington CNP (09/11/2024 1243) Echocardiogram complete Final Result by Slick Velasquez MD (09/11/2024 1403) Echocardiogram complete with bubble study Final Result by Jean Foley MD (07/17/2020 1216) HOME Medications: Patient's Medications New Prescriptions No medications on file Previous Medications LANTUS SOLOSTAR U-100 INSULIN 100 UNIT/ML (3 ML) INPN Inject 15 (fifteen) Units under the skin at bedtime . TESTOSTERONE CYPIONATE 200 MG/ML KIT Inject 0.25 mL (50 mg total) into the shoulder, thigh, or buttocks . Modified Medications Modified Medication Previous Medication LISINOPRIL (PRINIVIL,ZESTRIL) 10 MG TABLET lisinopriL (PRINIVIL,ZESTRIL) 10 MG tablet Take 1 (one) tablet (10 mg total) by mouth daily . Take 1 (one) tablet (10 mg total) by mouth daily . Discontinued Medications No medications on file Physical Examination: BP (!) 145/83 (BP Location: Left arm, Patient Position: Sitting, BP Cuff Size: X-large Adult) Pulse 76 Ht 5' 7 Wt 108.9 kg (240 lb) BMI 37.59 kg/m No results found for: CHOL, LDLCALC, LDLDIRECT, TRIG, HDL Creatinine clearance cannot be calculated (No successful lab value found.) AUTHENTICATED BY HARRISON ELLINGTON ON 09/11/2024 14:29:54 [facility] 08-07-2024 Telephone encounter Note Next appt 09/11/24. [facility] 08-07-2024 Miscellaneous Notes Next appt 09/11/24. documented in this encounter [facility] 06-14-2024 Note HNO ID: [id number] Author: ANGELA LORENZ PA Service: ? Author Type: Physician Surgery Attendant Type: Progress Notes Filed: 06/14/2024 15:41 Note Text: This note was created using [employer]. Subjective Khanh Dominguez is a 49 year old male. HPI 49-year-old male presents for right index finger infection. Patient states that he gets small cuts on his hands from working. 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 He states it was very superficial and not causing any issues. He states that about a week ago he noticed that it was getting red around the area and slightly swollen. He states it is tender to touch. He poked it several times with a needle, was only able to express blood. States today he poked it and got a little bit of pus drainage from the area. Still able to move the finger. No numbness or tingling. States that it is a throbbing pain from time to time. Has put alcohol on it. No fevers. No other complaint. History reviewed. No pertinent past medical history. No past surgical history on file. ALLERGIES Patient has no known allergies. MEDICATIONS doxycycline monohydrate 100 mg tablet Take 1 tablet by mouth two times a day for 7 days. mupirocin (BACTROBAN) 2 % ointment Apply to affected area three times a day for 7 days. fluticasone (FLONASE) 50 mcg/actuation nasal spray Use 1 [place] in each nostril daily at bedtime. (Patient not taking: Reported on 06/14/2024) No family history on file. Social History Tobacco Use Smoking status: Never Smokeless tobacco: Never Review of Systems Constitutional: Negative for chills and fever. HENT: Negative for congestion and sore throat. Respiratory: Negative for cough and shortness of breath. Gastrointestinal: Negative for diarrhea and vomiting. Skin: Positive for color change and wound. Objective BP 148/84 Pulse 85 Temp 36.8 ?C (98.3 ?F) (Tympanic) Resp 16 Wt 113.5 kg (250 lb 3.6 oz) SpO2 95% Physical Exam Vitals and nursing note reviewed. Constitutional: General: He is not in acute distress. Appearance: Normal appearance. He is not toxic-appearing. HENT: Nose: Nose normal. Mouth/Throat: Mouth: Mucous membranes are moist. Eyes: Conjunctiva/sclera: Conjunctivae normal. Cardiovascular: Rate and Rhythm: Normal rate and regular rhythm. Pulmonary: Effort: Pulmonary effort is normal. Breath sounds: Normal breath sounds. Musculoskeletal: Right hand: Swelling and tenderness present. Normal range of motion. Normal capillary refill. Normal pulse. Hands: Comments: Approximately 1.5 cm x 1.5 cm area of erythema and swelling noted over the right lateral index finger near the DIP joint. Normal flexion extension of the digit. Superficial healed abrasion present. Normal cap refill. No lymphatic streaking. No fluctuance or abscess. No drainage. Skin: General: Skin is warm and dry. Neurological: Mental Status: He is alert. Assessment and Plan ASSESSMENT/PLAN: 1. Skin infection - ICD9: 686.9, ICD10: L08.9 - Begin treatment with doxycycline -Rx for mupirocin - No lymphangetic streaking, this was defined for patient to watch for and to seek medical care immediately if appears -Tetanus is up-to-date -Follow-up in 3 to 5 days if no improvement in symptoms Diagnosis and treatment plan were discussed and questions were answered to the patient's satisfaction. Pt acknowledged understanding of concepts and follow up plan. Specific signs and symptoms that would indicate the need for higher level of care were discussed in detail warranting prompt ER evaluation. ANGELINE Napier [facility] 06-14-2024 History of Presen t illness Narrative Images from the original note were not included. This note was created using [employer]. Subjective Kahnh Dominguez is a 49 year old male. HPI 49-year-old male presents for right index finger infection. Patient states that he gets small cuts on his hands from working. 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 He states it was very superficial and not causing any issues. He states that about a week ago he noticed that it was getting red around the area and slightly swollen. He states it is tender to touch. He poked it several times with a needle, was only able to express blood. States today he poked it and got a little bit of pus drainage from the area. Still able to move the finger. No numbness or tingling. States that it is a throbbing pain from time to time. Has put alcohol on it. No fevers. No other complaint. History reviewed. No pertinent past medical history. No past surgical history on file. ALLERGIES Patient has no known allergies. MEDICATIONS doxycycline monohydrate 100 mg tablet Take 1 tablet by mouth two times a day for 7 days. mupirocin (BACTROBAN) 2 % ointment Apply to affected area three times a day for 7 days. fluticasone (FLONASE) 50 mcg/actuation nasal spray Use 1 [place] in each nostril daily at bedtime. (Patient not taking: Reported on 06/14/2024) No family history on file. Social History Tobacco Use Smoking status: Never Smokeless tobacco: Never Review of Systems Constitutional: Negative for chills and fever. HENT: Negative for congestion and sore throat. Respiratory: Negative for cough and shortness of breath. Gastrointestinal: Negative for diarrhea and vomiting. Skin: Positive for color change and wound. Objective BP 148/84 Pulse 85 Temp 36.8 C (98.3 F) (Tympanic) Resp 16 Wt 113.5 kg (250 lb 3.6 oz) SpO2 95% Physical Exam Vitals and nursing note reviewed. Constitutional: General: He is not in acute distress. Appearance: Normal appearance. He is not toxic-appearing. HENT: Nose: Nose normal. Mouth/Throat: Mouth: Mucous membranes are moist. Eyes: Conjunctiva/sclera: Conjunctivae normal. Cardiovascular: Rate and Rhythm: Normal rate and regular rhythm. Pulmonary: Effort: Pulmonary effort is normal. Breath sounds: Normal breath sounds. Musculoskeletal: Right hand: Swelling and tenderness present. Normal range of motion. Normal capillary refill. Normal pulse. Hands: Comments: Approximately 1.5 cm x 1.5 cm area of erythema and swelling noted over the right lateral index finger near the DIP joint. Normal flexion extension of the digit. Superficial healed abrasion present. Normal cap refill. No lymphatic streaking. No fluctuance or abscess. No drainage. Skin: General: Skin is warm and dry. Neurological: Mental Status: He is alert. Assessment and Plan ASSESSMENT/PLAN: 1. Skin infection - ICD9: 686.9, ICD10: L08.9 - Begin treatment with doxycycline -Rx for mupirocin - No lymphangetic streaking, this was defined for patient to watch for and to seek medical care immediately if appears -Tetanus is up-to-date -Follow-up in 3 to 5 days if no improvement in symptoms Diagnosis and treatment plan were discussed and questions were answered to the patient's satisfaction. Pt acknowledged understanding of concepts and follow up plan. Specific signs and symptoms that would indicate the need for higher level of care were discussed in detail warranting prompt ER evaluation. ANGELINE Napier documented in this encounter [facility] 11-20-2023 Telephone encounter Note Verified from [facility] 09/06/23. Next appt 09/12/23 [facility] 11-20-2023 Miscellaneous Notes Verified from [facility] 09/06/23. Next appt 09/12/23 documented in this encounter [facility] 09-06-2023 History of Presen t illness Narrative Interventional Cardiology Clinic Follow-up Heart & Vascular [facility] 09/06/2023 Harrison Ellington, SINGLE POINTED OPERATOR [address] [facility] [address] [facility] [address] Patient: Khanh Dominguez Date of : 1975 (48 y.o.) PCP: Jake Juarez MD Assessment & Plan Aorta dilation: - has been having yearly echocardiograms - last echo 07/15/22 with 4.3 cm aortic root, proximal ascending aorta 4.4 cm - TTE today - results pending Bicuspid AV: - echo as above with mild AR, no - continue surveillance - suggest screening of first-degree relatives of patients with bicuspid aortic valve for bicuspid aortic valve (and aortic root and ascending aorta dilation) as suggested by the 2018 [place] [employer]/[place] [employer] (ACC/AHA) adult congenital heart disease guidelines. This was d/w pt and he voices understanding - discussed importance of dental hygiene Follow-up: No follow-ups on file. Chief Complaint: Follow-up (Dilated ascending aorta ) Subjective History of Present Illness: Khanh Dominguez is a 48 y.o. male with family history of coronary artery disease, and dilated ascending aorta who presents for follow up. He had a Calcium score due to his strong family history of coronary artery disease that showed a calcium score of 0, but aortic root dilation of 4.4 cm. He then had an echocardiogram 07/17/20 that showed EF 55%, the aortic root of 4.3 and proximal ascending aorta of 4.2, as well as bicuspid AV with fusion of the right and left coronary cusps with mildly thickened and mobile leaflets, and mild to mod AR. His last echo was 07/15/22 with no significant changes. His last office visit was 05/13/2020 at which time he had no cardiac complaints. He continues to exercise and lift weights. He does not do power lifting anymore. He receives testosterone due to prior use when power lifting, but is monitored. Exam is unremarkable. Objective Tobacco Use Smoking Status Never Smokeless Tobacco Former Types: Chew Quit date: 2014 Imaging: I independently reviewed the EKG and agree with the interpretation(s) with the following comments. NSR with elevated J point, similar to prior ECG 12 lead Final Result by Harrison Ellington CNP (09/06/2023 1227) Echocardiogram complete by Slick Velasquez MD (09/06/2023 1225) Echocardiogram complete with bubble study Final Result by Jean Foley MD (07/17/2020 1216) HOME Medications: Patient's Medications New Prescriptions No medications on file Previous Medications LISINOPRIL (PRINIVIL,ZESTRIL) 10 MG TABLET Take 1 (one) tablet (10 mg total) by mouth daily . TESTOSTERONE CYPIONATE 200 MG/ML KIT Inject 0.25 mL (50 mg total) into the shoulder, thigh, or buttocks . Modified Medications No medications on file Discontinued Medications ATORVASTATIN (LIPITOR) 20 MG TABLET Take 1 tablet by mouth once daily METOPROLOL SUCCINATE (TOPROL XL) 25 MG 24 HR TABLET Take 1 (one) tablet (25 mg total) by mouth daily . Physical Examination: BP 133/77 (BP Location: Right arm, Patient Position: Sitting, BP Cuff Size: X-large Adult) Pulse 87 Ht 5' 7 Wt 107 kg (236 lb) BMI 36.96 kg/m No results found for: CHOL, LDLCALC, LDLDIRECT, TRIG, HDL Creatinine clearance cannot be calculated (No successful lab value found.) documented in this encounter [facility] 08-25-2023 Telephone encounter Note Next appt 09/06/23 [facility] 08-25-2023 Miscellaneous Notes Next appt 09/06/23 documented in this encounter [facility] 05-02-2023 History of Presen t illness Narrative Subjective HPI Nontoxic-appearing male presents urgent care chief complaint sore throat nasal drainage sinus pressure cough. Duration of symptoms 2 weeks. Associated symptoms listed above. Most prominent symptom today is sinus pressure. States did have a productive cough that has improved. Does have a lingering cough but this seems to be improving. Sinus pressure is worse by changing positions. History of sinus infections this feels similar. Sick contacts recently returned home from a trip to [place]. Denies any fever body aches chills productive cough chest pain shortness of breath pleuritic pain hemoptysis nausea vomiting abdominal pain change in bowel or bladder habits. Past medical history prescription medication use and allergies reviewed. .Patient presents with: Head Congestion: drainage, cough, sinus pressure and sore throat x 2 weeks History reviewed. No pertinent past medical history. History reviewed. No pertinent surgical history. ALLERGIES Patient has no known allergies. MEDICATIONS No prescriptions on file. History reviewed. No pertinent family history. Social History Tobacco Use Smoking status: Never Smokeless tobacco: Never BP 148/82 Pulse 88 Temp 36.9 C (98.5 F) Resp 16 Wt 109.3 kg (241 lb) SpO2 97% Review of Systems Constitutional: Negative for chills, fever and malaise/fatigue. HENT: Positive for congestion, sinus pain and sore throat. Negative for ear discharge and ear pain. Eyes: Negative for blurred vision, pain, discharge and redness. Respiratory: Positive for cough. Negative for hemoptysis, sputum production, shortness of breath, wheezing and stridor. Cardiovascular: Negative for chest pain. Gastrointestinal: Negative for abdominal pain, diarrhea, nausea and vomiting. Musculoskeletal: Negative for myalgias. Skin: Negative for itching and rash. Neurological: Negative for dizziness and headaches. Objective Physical Exam Constitutional: General: He is not in acute distress. Appearance: He is not diaphoretic. HENT: Head: Normocephalic. Jaw: No trismus, tenderness, swelling or pain on movement. Nose: Congestion present. Right Sinus: Maxillary sinus tenderness present. Left Sinus: Maxillary sinus tenderness present. Mouth/Throat: Mouth: Mucous membranes are moist. Pharynx: Oropharynx is clear. Uvula midline. No pharyngeal swelling, oropharyngeal exudate, posterior oropharyngeal erythema or uvula swelling. Eyes: Conjunctiva/sclera: Conjunctivae normal. Pupils: Pupils are equal, round, and reactive to light. Cardiovascular: Rate and Rhythm: Normal rate and regular rhythm. Heart sounds: Normal heart sounds. Pulmonary: Effort: Pulmonary effort is normal. No tachypnea, accessory muscle usage or respiratory distress. Breath sounds: Normal breath sounds. No stridor. No wheezing, rhonchi or rales. Abdominal: General: There is no distension. Palpations: Abdomen is soft. Tenderness: There is no abdominal tenderness. There is no guarding or rebound. Musculoskeletal: Cervical back: Normal range of motion and neck supple. No edema, erythema, rigidity or tenderness. No pain with movement. Normal range of motion. Lymphadenopathy: Cervical: No cervical adenopathy. Skin: General: Skin is warm and dry. Neurological: Mental Status: He is alert and oriented to person, place, and time. ASSESSMENT/PLAN: 1. Sinobronchitis - ICD9: 473.9, 490, ICD10: J32.9, J40 Diagnosed with sinobronchitis. Placed on doxycycline Zyrtec Flonase. Follow-up with PCP 3 to 5 days symptoms are not improving. Patient was educated on supportive therapies. Patient was instructed to immediately proceed to emergency room for any new, worsening, or symptoms lasting longer than anticipated. The patient's clinical presentation is otherwise unremarkable at this time. Based on exam and clinical finding, the patient is stable for discharge. Plan of care was discussed with patient. Patient verbalizes understanding and agrees to plan of care. This note was generated using [employer] software. It may contain errors in wording, punctuation, or spelling. Saul Pelayo APRN.SINGLE POINTED OPERATOR documented in this encounter [facility] 12-29-2022 Telephone encounter Note Received request for refill(s). [facility] 05/13/2020 Recall for follow up overdue. Message sent to patient. [facility] 12-29-2022 Miscellaneous Notes Received request for refill(s). [facility] 05/13/2020 Recall for follow up overdue. Message sent to patient. documented in this encounter [facility] 03-01-2022 Telephone encounter Note Duplicate refill request [facility] 03-01-2022 Miscellaneous Notes Duplicate refill request documented in this encounter [facility] 03-01-2022 Telephone encounter Note Medication verified per Epic per telephone encounter dated 06/17/2020. Pt will be due for his 2 year follow up with 04/2022 . [facility] 03-01-2022 Miscellaneous Notes Medication verified per Epic per telephone encounter dated 06/17/2020. Pt will be due for his 2 year follow up with 04/2022 . documented in this encounter [facility] 11-30-2020 History of Presen t illness Narrative Radiology Service Progress Note PATIENT NAME: Khanh Dominguez DATE OF SERVICE: November 30, 2020 TIME: 6:48 PM PATIENT IDENTITY VERIFICATION COMPLETED USING TWO (2) IDENTIFIERS: Name and Date of confirmed by patient verbally. FALL SCREENING: Has the patient had 2 falls in the last year or 1 fall with injury or currently using an Ambulatory Assistive Device (Walker, Cane, Wheelchair, Crutches, etc.)? No PATIENT GENDER DATA: Male PATIENT RELEVANT IMPLANT DATA REVIEWED: Yes RADIOLOGY DEPARTMENT: General X-ray: Exam(s) Completed: Lower Extremity X-Ray(s): Foot, Right PERIPHERAL IV DATA: Not applicable SIGNED BY: RT Brant(R) November 30, 2020 6:48 PM documented in this encounter [facility] Evaluation note There may be informa tion available, but it has not been provided by the sender. [facility] Work Phone: Evaluation note Diagnosis Sinobronchitis- Primary Unspecified sinusitis (chronic) [facility] Diagnosis Aortic valve insufficiency, etiology of cardiac valve disease unspecified- Primary Ascending aorta dilatation (HCC) Thoracic aneurysm without mention of rupture documented in this encounter [facility] note* Diagnosis Aortic valve insufficiency, etiology of cardiac valve disease unspecified- Primary documented in this encounter [facility] note* Diagnosis Aortic valve insufficiency, etiology of cardiac valve disease unspecified- Primary Ascending aorta dilation (HCC) Thoracic aneurysm without mention of rupture Bicuspid aortic valve Congenital insufficiency of aortic valve documented in this encounter [facility] note* Diagnosis Puncture wound of right foot, initial encounter documented in this encounter [facility] note* Diagnosis Skin infection- Primary Unspecified local infection of skin and subcutaneous tissue [facility] Diagnosis Encounter for screening for cardiovascular disorders documented in this encounter [facility] Work Phone: Evaluation note* Diagnosis Ascending aorta dilation (HCC)- Primary Thoracic aneurysm without mention of rupture Bicuspid aortic valve Congenital insufficiency of aortic valve [facility] Diagnosis Hypertension, unspecified type- Primary Ascending aorta dilation (HCC) Thoracic aneurysm without mention of rupture Bicuspid aortic valve Congenital insufficiency of aortic valve [facility] Ascending aorta dilation (HCC)- Primary Thoracic aneurysm without mention of rupture [facility] Instruction Description Start Date CompletedPatient advised to follow-up with Primary Care Physician for BMI management. [facility] Work Phone: Reason for visit Narrative* Imaging (Routine) - Pending Review Specialty Diagnoses / Procedures Referred By Contac t Referred To Contact Radiology Diagnoses Encounter for screening for cardiovascular disorders Procedures CT cardiac scoring wo IV contrast Jake Juarez MD [address] [place] [address] [place] [address] Phone: tel: fax: Referral ID Status Reason Start Date Expiration Date Visits Requested Visits Authorized [id number] Pending Review Perform Procedure 07/08/2024 07/08/2025 1 1 [facility] Work Phone: Summary Purpose Family History No Family History Records Found Cerebrovascular Accident Status:Active Comment s:Father. Coronary Artery Disease Status:Active Comments :Father. Diabetes Mellitus Type II Status:Active Commen ts:Father. Father Status:Active Comments:In poor health. Hypertension Status:Active Comments:Father. Mother Status:Active Comments:In good health. Cerebrovascular Accident Status:Active Comment s:Father. Coronary Artery Disease Status:Active Comments :Father. Diabetes Mellitus Type II Status:Active Commen ts:Father. Father Status:Active Comments:In poor health. Hypertension Status:Active Comments:Father. Mother Status:Active Comments:In good health. Cerebrovascular Accident Status:Active Comment s:Father. Coronary Artery Disease Status:Active Comments :Father. Diabetes Mellitus Type II Status:Active Commen ts:Father. Father Status:Active Comments:In poor health. Hypertension Status:Active Comments:Father. Mother Status:Active Comments:In good health. Cerebrovascular Accident Status:Active Comment s:Father. Coronary Artery Disease Status:Active Comments :Father. Diabetes Mellitus Type II Status:Active Commen ts:Father. Father Status:Active Comments:In poor health. Hypertension Status:Active Comments:Father. Mother Status:Active Comments:In good health. Cerebrovascular Accident Status:Active Comment s:Father. Coronary Artery Disease Status:Active Comments :Father. Diabetes Mellitus Type II Status:Active Commen ts:Father. Father Status:Active Comments:In poor health. Hypertension Status:Active Comments:Father. Mother Status:Active Comments:In good health. Cerebrovascular Accident Status:Active Comment s:Father. Coronary Artery Disease Status:Active Comments :Father. Diabetes Mellitus Type II Status:Active Commen ts:Father. Father Status:Active Comments:In poor health. Hypertension Status:Active Comments:Father. Mother Status:Active Comments:In good health. Cerebrovascular Accident Status:Active Comment s:Father. Coronary Artery Disease Status:Active Comments :Father. Diabetes Mellitus Type II Status:Active Commen ts:Father. Father Status:Active Comments:In poor health. Hypertension Status:Active Comments:Father. Mother Status:Active Comments:In good health. Cerebrovascular Accident Status:Active Comment s:Father. Coronary Artery Disease Status:Active Comments :Father. Diabetes Mellitus Type II Status:Active Commen ts:Father. Father Status:Active Comments:In poor health. Hypertension Status:Active Comments:Father. Mother Status:Active Comments:In good health. Cerebrovascular Accident Status:Active Comment s:Father. Coronary Artery Disease Status:Active Comments :Father. Diabetes Mellitus Type II Status:Active Commen ts:Father. Father Status:Active Comments:In poor health. Hypertension Status:Active Comments:Father. Mother Status:Active Comments:In good health. Cerebrovascular Accident Status:Active Comment s:Father. Coronary Artery Disease Status:Active Comments :Father. Diabetes Mellitus Type II Status:Active Commen ts:Father. Father Status:Active Comments:In poor health. Hypertension Status:Active Comments:Father. Mother Status:Active Comments:In good health. Cerebrovascular Accident Status:Active Comment s:Father. Coronary Artery Disease Status:Active Comments :Father. Diabetes Mellitus Type II Status:Active Commen ts:Father. Father Status:Active Comments:In poor health. Hypertension Status:Active Comments:Father. Mother Status:Active Comments:In good health. Cerebrovascular Accident Status:Active Comment s:Father. Coronary Artery Disease Status:Active Comments :Father. Diabetes Mellitus Type II Status:Active Commen ts:Father. Father Status:Active Comments:In poor health. Hypertension Status:Active Comments:Father. Mother Status:Active Comments:In good health. Cerebrovascular Accident Status:Active Comment s:Father. Coronary Artery Disease Status:Active Comments :Father. Diabetes Mellitus Type II Status:Active Commen ts:Father. Father Status:Active Comments:In poor health. Hypertension Status:Active Comments:Father. Mother Status:Active Comments:In good health. Cerebrovascular Accident Status:Active Comment s:Father. Coronary Artery Disease Status:Active Comments :Father. Diabetes Mellitus Type II Status:Active Commen ts:Father. Father Status:Active Comments:In poor health. Hypertension Status:Active Comments:Father. Mother Status:Active Comments:In good health. Cerebrovascular Accident Status:Active Comment s:Father. Coronary Artery Disease Status:Active Comments :Father. Diabetes Mellitus Type II Status:Active Commen ts:Father. Father Status:Active Comments:In poor health. Hypertension Status:Active Comments:Father. Mother Status:Active Comments:In good health. Cerebrovascular Accident Status:Active Comment s:Father. Coronary Artery Disease Status:Active Comments :Father. Diabetes Mellitus Type II Status:Active Commen ts:Father. Father Status:Active Comments:In poor health. Hypertension Status:Active Comments:Father. Mother Status:Active Comments:In good health. Cerebrovascular Accident Status:Active Comment s:Father. Coronary Artery Disease Status:Active Comments :Father. Diabetes Mellitus Type II Status:Active Commen ts:Father. Father Status:Active Comments:In poor health. Hypertension Status:Active Comments:Father. Mother Status:Active Comments:In good health. Cerebrovascular Accident Status:Active Comment s:Father. Coronary Artery Disease Status:Active Comments :Father. Diabetes Mellitus Type II Status:Active Commen ts:Father. Father Status:Active Comments:In poor health. Hypertension Status:Active Comments:Father. Mother Status:Active Comments:In good health. Cerebrovascular Accident Status:Active Comment s:Father. Coronary Artery Disease Status:Active Comments :Father. Diabetes Mellitus Type II Status:Active Commen ts:Father. Father Status:Active Comments:In poor health. Hypertension Status:Active Comments:Father. Mother Status:Active Comments:In good health. Cerebrovascular Accident Status:Active Comment s:Father. Coronary Artery Disease Status:Active Comments :Father. Diabetes Mellitus Type II Status:Active Commen ts:Father. Father Status:Active Comments:In poor health. Hypertension Status:Active Comments:Father. Mother Status:Active Comments:In good health. Cerebrovascular Accident Status:Active Comment s:Father. Coronary Artery Disease Status:Active Comments :Father. Diabetes Mellitus Type II Status:Active Commen ts:Father. Father Status:Active Comments:In poor health. Hypertension Status:Active Comments:Father. Mother Status:Active Comments:In good health. Cerebrovascular Accident Status:Active Comment s:Father. Coronary Artery Disease Status:Active Comments :Father. Diabetes Mellitus Type II Status:Active Commen ts:Father. Father Status:Active Comments:In poor health. Hypertension Status:Active Comments:Father. Mother Status:Active Comments:In good health. Cerebrovascular Accident Status:Active Comment s:Father. Coronary Artery Disease Status:Active Comments :Father. Diabetes Mellitus Type II Status:Active Commen ts:Father. Father Status:Active Comments:In poor health. Hypertension Status:Active Comments:Father. Mother Status:Active Comments:In good health. Cerebrovascular Accident Status:Active Comment s:Father. Coronary Artery Disease Status:Active Comments :Father. Diabetes Mellitus Type II Status:Active Commen ts:Father. Father Status:Active Comments:In poor health. Hypertension Status:Active Comments:Father. Mother Status:Active Comments:In good health. Cerebrovascular Accident Status:Active Comment s:Father. Coronary Artery Disease Status:Active Comments :Father. Diabetes Mellitus Type II Status:Active Commen ts:Father. Father Status:Active Comments:In poor health. Hypertension Status:Active Comments:Father. Mother Status:Active Comments:In good health. Cerebrovascular Accident Status:Active Comment s:Father. Coronary Artery Disease Status:Active Comments :Father. Diabetes Mellitus Type II Status:Active Commen ts:Father. Father Status:Active Comments:In poor health. Hypertension Status:Active Comments:Father. Mother Status:Active Comments:In good health. Cerebrovascular Accident Status:Active Comment s:Father. Coronary Artery Disease Status:Active Comments :Father. Diabetes Mellitus Type II Status:Active Commen ts:Father. Father Status:Active Comments:In poor health. Hypertension Status:Active Comments:Father. Mother Status:Active Comments:In good health. Cerebrovascular Accident Status:Active Comment s:Father. Coronary Artery Disease Status:Active Comments :Father. Diabetes Mellitus Type II Status:Active Commen ts:Father. Father Status:Active Comments:In poor health. Hypertension Status:Active Comments:Father. Mother Status:Active Comments:In good health. Cerebrovascular Accident Status:Active Comment s:Father. Coronary Artery Disease Status:Active Comments :Father. Diabetes Mellitus Type II Status:Active Commen ts:Father. Father Status:Active Comments:In poor health. Hypertension Status:Active Comments:Father. Mother Status:Active Comments:In good health. Cerebrovascular Accident Status:Active Comment s:Father. Coronary Artery Disease Status:Active Comments :Father. Diabetes Mellitus Type II Status:Active Commen ts:Father. Father Status:Active Comments:In poor health. Hypertension Status:Active Comments:Father. Mother Status:Active Comments:In good health. Cerebrovascular Accident Status:Active Comment s:Father. Coronary Artery Disease Status:Active Comments :Father. Diabetes Mellitus Type II Status:Active Commen ts:Father. Father Status:Active Comments:In poor health. Hypertension Status:Active Comments:Father. Mother Status:Active Comments:In good health. Cerebrovascular Accident Status:Active Comment s:Father. Coronary Artery Disease Status:Active Comments :Father. Diabetes Mellitus Type II Status:Active Commen ts:Father. Father Status:Active Comments:In poor health. Hypertension Status:Active Comments:Father. Mother Status:Active Comments:In good health. Cerebrovascular Accident Status:Active Comment s:Father. Coronary Artery Disease Status:Active Comments :Father. Diabetes Mellitus Type II Status:Active Commen ts:Father. Father Status:Active Comments:In poor health. Hypertension Status:Active Comments:Father. Mother Status:Active Comments:In good health. Cerebrovascular Accident Status:Active Comment s:Father. Coronary Artery Disease Status:Active Comments :Father. Diabetes Mellitus Type II Status:Active Commen ts:Father. Father Status:Active Comments:In poor health. Hypertension Status:Active Comments:Father. Mother Status:Active Comments:In good health. Cerebrovascular Accident Status:Active Comment s:Father. Coronary Artery Disease Status:Active Comments :Father. Diabetes Mellitus Type II Status:Active Commen ts:Father. Father Status:Active Comments:In poor health. Hypertension Status:Active Comments:Father. Mother Status:Active Comments:In good health. Cerebrovascular Accident Status:Active Comment s:Father. Coronary Artery Disease Status:Active Comments :Father. Diabetes Mellitus Type II Status:Active Commen ts:Father. Father Status:Active Comments:In poor health. Hypertension Status:Active Comments:Father. Mother Status:Active Comments:In good health. Cerebrovascular Accident Status:Active Comment s:Father. Coronary Artery Disease Status:Active Comments :Father. Diabetes Mellitus Type II Status:Active Commen ts:Father. Father Status:Active Comments:In poor health. Hypertension Status:Active Comments:Father. Mother Status:Active Comments:In good health. Cerebrovascular Accident Status:Active Comment s:Father. Coronary Artery Disease Status:Active Comments :Father. Diabetes Mellitus Type II Status:Active Commen ts:Father. Father Status:Active Comments:In poor health. Hypertension Status:Active Comments:Father. Mother Status:Active Comments:In good health. Cerebrovascular Accident Status:Active Comment s:Father. Coronary Artery Disease Status:Active Comments :Father. Diabetes Mellitus Type II Status:Active Commen ts:Father. Father Status:Active Comments:In poor health. Hypertension Status:Active Comments:Father. Mother Status:Active Comments:In good health. Cerebrovascular Accident Status:Active Comment s:Father. Coronary Artery Disease Status:Active Comments :Father. Diabetes Mellitus Type II Status:Active Commen ts:Father. Father Status:Active Comments:In poor health. Hypertension Status:Active Comments:Father. Mother Status:Active Comments:In good health. Cerebrovascular Accident Status:Active Comment s:Father. Coronary Artery Disease Status:Active Comments :Father. Diabetes Mellitus Type II Status:Active Commen ts:Father. Father Status:Active Comments:In poor health. Hypertension Status:Active Comments:Father. Mother Status:Active Comments:In good health. Cerebrovascular Accident Status:Active Comment s:Father. Coronary Artery Disease Status:Active Comments :Father. Diabetes Mellitus Type II Status:Active Commen ts:Father. Father Status:Active Comments:In poor health. Hypertension Status:Active Comments:Father. Mother Status:Active Comments:In good health. Cerebrovascular Accident Status:Active Comment s:Father. Coronary Artery Disease Status:Active Comments :Father. Diabetes Mellitus Type II Status:Active Commen ts:Father. Father Status:Active Comments:In poor health. Hypertension Status:Active Comments:Father. Mother Status:Active Comments:In good health. Cerebrovascular Accident Status:Active Comment s:Father. Coronary Artery Disease Status:Active Comments :Father. Diabetes Mellitus Type II Status:Active Commen ts:Father. Father Status:Active Comments:In poor health. Hypertension Status:Active Comments:Father. Mother Status:Active Comments:In good health. Cerebrovascular Accident Status:Active Comment s:Father. Coronary Artery Disease Status:Active Comments :Father. Diabetes Mellitus Type II Status:Active Commen ts:Father. Father Status:Active Comments:In poor health. Hypertension Status:Active Comments:Father. Mother Status:Active Comments:In good health. Cerebrovascular Accident Status:Active Comment s:Father. Coronary Artery Disease Status:Active Comments :Father. Diabetes Mellitus Type II Status:Active Commen ts:Father. Father Status:Active Comments:In poor health. Hypertension Status:Active Comments:Father. Mother Status:Active Comments:In good health. Cerebrovascular Accident Status:Active Comment s:Father. Coronary Artery Disease Status:Active Comments :Father. Diabetes Mellitus Type II Status:Active Commen ts:Father. Father Status:Active Comments:In poor health. Hypertension Status:Active Comments:Father. Mother Status:Active Comments:In good health. Cerebrovascular Accident Status:Active Comment s:Father. Coronary Artery Disease Status:Active Comments :Father. Diabetes Mellitus Type II Status:Active Commen ts:Father. Father Status:Active Comments:In poor health. Hypertension Status:Active Comments:Father. Mother Status:Active Comments:In good health. Cerebrovascular Accident Status:Active Comment s:Father. Coronary Artery Disease Status:Active Comments :Father. Diabetes Mellitus Type II Status:Active Commen ts:Father. Father Status:Active Comments:In poor health. Hypertension Status:Active Comments:Father. Mother Status:Active Comments:In good health. Cerebrovascular Accident Status:Active Comment s:Father. Coronary Artery Disease Status:Active Comments :Father. Diabetes Mellitus Type II Status:Active Commen ts:Father. Father Status:Active Comments:In poor health. Hypertension Status:Active Comments:Father. Mother Status:Active Comments:In good health. 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 Advance Directives and Livin g Will 06/21/2021 10:43 AM Reason for Referral Status Reason Specialty Diagnoses / Procedures Re ferred By Contact Referred To Contact New Request Radiology Diagnoses Hyperlipidemia, unspecified hyperlipidemia type Family history of heart disease Procedures CT CALCIUM SCORE SCREENING Luis Spencer MD [address] [place] [address] Status Reason Specialty Diagnoses / Procedures Referre d By Contact Referred To Contact Closed Radiology Diagnoses Hyperlipidemia, unspecified hyperlipidemia type Family history of heart disease Procedures CT CALCIUM SCORE SCREENING Luis Spencer MD [address] [place] [address] Specialty Diagnoses / Procedures Referred By Shalonda t Referred To Contact Cardiology Diagnoses Aortic valve insufficiency, etiology of cardiac valve disease unspecified Ascending aorta dilatation (HCC) Procedures Echocardiogram complete Luis Spencer MD [address] [place] [address] Referral ID Status Reason Start Date Expiration Date V isits Requested Visits Authorized [id number] New Request 08/09/2023 08/08/2024 1 1 History of Present Illness * Luis Spencer MD - 05/13/2020 9:23 AM EST [facility] [address] [place] [address] [facility] [address] [place] [id number] Subjective: Khanh Dominguez is a 45 y.o. male seen in the office today for Establish Care (abn ekg 2 yrs ago, fam hx CAD) HPI: This pleasant man is presenting for initial evaluation. He has a very strong family history of CAD.His dad had a massive [place] at age 31.He has a LDL of 89. He has no symptoms of chest pain or shortness of breath with exertion. He works out vigorously. 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 He caesar supplemental testosterone therapy. 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 This affects both knees and his right arm. He is concerned about his strong family history of coronary disease and is seeing me for that reason today. Physical examination reveals no carotid bruits or jugular venous distention. His lungs are clear toauscultation. His cardiac exam shows a regular rate and rhythm without murmurs detected. His EKG shows a normal sinus rhythm without abnormalities. I believe the best way to screen him for the risk of coronary artery disease is to have a calcium score done. This will be done by CT analysis. If he has a positive calcium score then lipid-lowering therapy will be recommended to drive his LDL cholesterol less than 90. I have encouraged him to exercise. He will notify me if he has any symptoms. I do not believe any further cardiac testing is necessary unless he develops symptoms. If I can be of any further assistance in his care please do not hesitate to contact me. Histories: Past Medical History: Diagnosis Date Low testosterone Multiple hereditary exostoses Past Surgical History: Procedure Laterality Date FEMUR SURGERY 2018 Family History Problem Relation Age of Onset Heart disease Father Stroke Father Heart attack Father Social History Tobacco Use Smoking status: Never Smoker Smokeless tobacco: Former User Types: Chew Substance Use Topics Alcohol use: Not Currently Drug use: Never Outpatient Medications as of 05/13/2020 Medication Sig testosterone cypionate 200 mg/mL Kit Inject 50 mg into the shoulder, thigh, or buttocks . atorvastatin (Lipitor) 20 MG tablet Take 1 (one) tablet (20 mg total) by mouth daily . No Known Allergies Review of Systems Constitution: Negative for diaphoresis, malaise/fatigue, weight gain and weight loss. HENT: Negative for hearing loss, nosebleeds and tinnitus. Eyes: Negative for blurred vision and visual disturbance. Cardiovascular: Negative for chest pain, claudication, cyanosis, dyspnea on exertion, irregular heartbeat, leg swelling, near-syncope, orthopnea, palpitations, paroxysmal nocturnal dyspnea and syncope. Respiratory: Negative for hemoptysis, shortness of breath and snoring. Endocrine: Negative for cold intolerance and heat intolerance. Hematologic/Lymphatic: Does not bruise/bleed easily. Skin: Negative for flushing, poor wound healing and rash. Musculoskeletal: Negative for back pain, muscle weakness and myalgias. Gastrointestinal: Negative for abdominal pain, change in bowel habit, melena, nausea and vomiting. Genitourinary: Negative for decreased libido and hematuria. Neurological: Negative for loss of balance and numbness. Psychiatric/Behavioral: Negative for memory loss. The patient is not nervous/anxious. Overview of Problems Addressed: No problems updated. Objective: Physical Exam Constitutional: He is oriented to person, place, and time. He appears well-nourished. HENT: Head: Normocephalic. Eyes: Pupils are equal, round, and reactive to light. Neck: Normal range of motion. Cardiovascular: Normal rate and regular rhythm. No murmur heard. Pulmonary/Chest: Breath sounds normal. No respiratory distress. He has no wheezes. He has no rales. Abdominal: There is no abdominal tenderness. There is no rebound. Musculoskeletal: Normal range of motion. General: No edema. Neurological: He is alert and oriented to person, place, and time. Skin: Skin is warm. Vitals: Vitals: 05/13/20 0836 05/13/20 0837 05/13/20 0843 BP: (!) 149/84 (!) 148/78 (!) 144/83 BP Location: Right arm Left arm Left arm Patient Position: Sitting Sitting Sitting BP Cuff Size: X-large Adult X-large Adult X-large Adult Pulse: 83 81 81 Weight: 100 kg (220 lb 8 oz) Height: 5' 7 EKG Interpretation: normal EKG, normal sinus rhythm, unchanged from previous tracings. Assessment & Plan: No problem-specific Assessment & Plan notes found for this encounter. Orders Placed This Encounter CT CALCIUM SCORE SCREENING testosterone cypionate 200 mg/mL Kit atorvastatin (Lipitor) 20 MG tablet Follow Up Ordered: Return in about 2 years (around 05/13/2022). Luis Spencer MD * Hailey Read MA - 05/13/2020 8:40 AM EST Review of Systems Constitution: Negative for diaphoresis, malaise/fatigue, weight gain and weight loss. HENT: Negative for hearing loss, nosebleeds and tinnitus. Eyes: Negative for blurred vision and visual disturbance. Cardiovascular: Negative for chest pain, claudication, cyanosis, dyspnea on exertion, irregular heartbeat, leg swelling, near-syncope, orthopnea, palpitations, paroxysmal nocturnal dyspnea and syncope. Respiratory: Positive for snoring. Negative for hemoptysis and shortness of breath. Endocrine: Negative for cold intolerance and heat intolerance. Hematologic/Lymphatic: Does not bruise/bleed easily. Skin: Negative for flushing, poor wound healing and rash. Musculoskeletal: Negative for back pain, muscle weakness and myalgias. Gastrointestinal: Negative for abdominal pain, change in bowel habit, melena, nausea and vomiting. Genitourinary: Negative for decreased libido and hematuria. Neurological: Negative for loss of balance and numbness. Psychiatric/Behavioral: Negative for memory loss. The patient is not nervous/anxious. documented in this encounter Assessments Diagnosis Hyperlipidemia, unspecified hyperlipidemia type- Primary Abnormal EKG Nonspecific abnormal electrocardiogram (ECG) (EKG) Family history of heart disease Diagnosis Hyperlipidemia, unspecified hyperlipidemia type Family history of heart disease Diagnosis Aortic root dilatation (HCC) Thoracic aneurysm without mention of rupture Chief Complaint Chief Complaint Description Start Date right wrist pain Preliminary chief co mplaint data, not yet signed by the author as of Additional Source Comments (unrecognized sect ion and content) No Status Records FoundNo Status Records FoundNo Status Records FoundNo Status Records FoundNo Status Records FoundNo Status Records FoundNo Status Records FoundNo Status Records FoundNo Status Records Found INFORMATION SOURCE (unrecogn ized section and content) DATE CREATED AUTHOR 02/27/2019 [facility] DATE CREATED AUTHOR AUTHOR'S ORGANIZ ATION 06/25/2021 [facility] DATE CREATED AUTHOR AUTHOR'S ORGANIZ ATION [facility] DATE CREATED AUTHOR AUTHOR'S ORGANIZ ATION 07/11/2024 [facility] DATE CREATED AUTHOR AUTHOR'S ORGANIZ ATION 07/17/2024 [facility] [facility] DATE CREATED AUTHOR AUTHOR'S ORGANIZ ATION 10/02/2024 [facility] DATE CREATED AUTHOR AUTHOR'S ORGANIZ ATION 10/21/2024 [facility] DATE CREATED AUTHOR AUTHOR'S ORGANIZ ATION 04/14/2025 [facility] DATE CREATED AUTHOR AUTHOR'S ORGANIZ ATION 04/21/2025 [facility] Reason for Visit (unrecogniz ed section and content) Reason Comments Establish Care abn ekg 2 yrs ago, f am hx CAD Status Reason Specialty Diagnoses / Procedures Referre d By Contact Referred To Contact Closed Radiology Diagnoses Hyperlipidemia, unspecified hyperlipidemia type Family history of heart disease Procedures CT CALCIUM SCORE SCREENING Luis Spencer MD [address] [place] [address] Status Reason Specialty Diagnoses / Procedures Referred By Contact Referred To Contact Closed Cardiology Diagnoses Aortic root dilatation (HCC) Procedures Echocardiogram complete with bubble study [place] [address] [place] [address] Reason Comments Medication Refill Reason For Visit Description Start Date Follow-up by complaint Preliminary reason f or visit data, not yet signed by the author as of right wrist pain Reason Onset Date Comments Medication Refill 06/16/2022 Reason Onset Date Comments Medication Refill 12/29/2022 Reason Comments Head Congestion drainage, cough, sin us pressure and sore throat x 2 weeks Reason Comments Follow-up Dilated ascending ao rta Reason Comments right index finger infection X 2 weeks Reason Onset Date Comments Medication Refill 08/07/2024 Reason Comments Follow-up TWO APPTS1 year aort ic dilation Reason Onset Date Comments Echo results CTA needed 09/11/2024 Reason Onset Date Comments Results 10/16/2024 Care Teams (unrecognized sec tion and content) Insurance Agency Sales Manager Relationship Specialty Start Date End Date Jake Juarez MD [address] [place] [phone] PCP - General Family Medicine 04/16/20 Insurance Agency Sales Manager Relationship Specialty Start Date End Date Jake Juarez MD [address] [place] [phone] PCP - General Family Medicine 04/16/20 Insurance Agency Sales Manager Relationship Specialty Start Date End Date Jake Juarez MD [address] [place] [phone] PCP - General Family Medicine 04/16/20 Insurance Agency Sales Manager Relationship Specialty Start Date End Date Jake Juarez MD [address] [place] [phone] PCP - General Family Medicine 04/16/20 Insurance Agency Sales Manager Relationship Specialty Start Date End Date Jake Juarez MD [address] [place], [place] [phone] PCP - General Family Medicine 04/16/20 Insurance Agency Sales Manager Relationship Specialty Start Date End Date Jake Juarez MD [address] [place] [phone] PCP - General Family Medicine 04/16/20 Insurance Agency Sales Manager Relationship Specialty Start Date End Date Jake Juarez MD [address] [place] [phone] PCP - General Family Medicine 04/16/20 Insurance Agency Sales Manager Relationship Specialty Start Date End Date Jake Juarez MD [address] [place] [phone] PCP - General Family Medicine 04/16/20 Insurance Agency Sales Manager Relationship Specialty Start Date End Date Jake Juarez MD [address] [place] [phone] PCP - General Family Medicine 04/16/20 Insurance Agency Sales Manager Relationship Specialty Start Date End Date Jake Juarez MD [address] [place] [phone] PCP - General Family Medicine 04/16/20 Insurance Agency Sales Manager Relationship Specialty Start Date End Date Jake Juarez MD [address] [place] [phone] PCP - General Family Medicine 04/16/20 Insurance Agency Sales Manager Relationship Specialty Start Date End Date Jake Juarez MD [address] [place] [phone] PCP - General Family Medicine 04/16/20 Source Comments (unrecognize d section and content) In the event this informatio n is protected by the Federal Confidentiality of Alcohol and Drug Abuse Patient Records regulations: The Federal rules restrict any use of the information to criminally investigate or prosecute any alcohol or drug abuse patient.[facility] the event this information is protected by the Federal Confidentiality of Alcohol and Drug Abuse Patient Records regulations: The Federal rules restrict any use of the information to criminally investigate or prosecute any alcohol or drug abuse patient.[facility] the event this information is protected by the Federal Confidentiality of Alcohol and Drug Abuse Patient Records regulations: The Federal rules restrict any use of the information to criminally investigate or prosecute any alcohol or drug abuse patient.[facility] FOR RECORDS PERTAINING TO PATIENTS WHO ARE OR HAVE BEEN ENROLLED IN A CHEMICAL DEPENDENCY/SUBSTANCEABUSE PROGRAM, SOME INFORMATION MAY BE OMITTED. This clinical summary was aggregated from multiple sources. Caution should be exercised in using it in the provision of clinical care. This summary normalizes information from multiple sources, and as a consequence, information in this document may materially change the coding, format and clinical context of patient data. In addition, data may be omitted in some cases. CLINICAL DECISIONS SHOULD BE BASED ON THE PRIMARY CLINICAL RECORDS. [facility] [employer] [facility]. provides no warranty or guarantee of the accuracy or completeness of information in this document.
--- NOTE | 2025-06-07 07:31 | MRI_ITS ---
PROCEDURE: BRAIN WITHOUT CONTRAST 06/07/2025 REASON FOR EXAM: [facility]; EXPRESSIVE APHASIA; TRANSIENT VISUAL CHANGES TECHNIQUE: Procedure Code: MRIBR Modality: MR Procedure: BRAIN WITHOUT CONTRAST Multiplanar and multisequence images were obtained. COMPARISON: None. FINDINGS: Incomplete examination as patient was unable to tolerate exam. Missing axial T1 and gradient echo sequences. No acute infarct. Chronic lacunar infarct versus enlarged perivascular space in the left frontal lobe within the subcortical/cortical region. No extra-axial fluid collection. No significant mass effect or herniation of the brain.The ventricular system and sulci/fissures are within expected limits of size and configuration for the patient's stated age.The basal cisterns are patent. The intracranial large vessel arterial flow voids are maintained.The mastoid air cells clear. The paranasal sinuses are predominately clear. Biconvex nasal septal deviation. The orbits are unremarkable. MRI/Brain without Contrast IMPRESSION: Incomplete examination as patient was unable to tolerate exam. No acute infarc t. Limited evaluation for hemorrhage. Consider repeat examination if clinically warranted. Reading Location: [id number]
== END | disposition home or self-care (01) ==
LOC: MRI 07:07
PROVIDERS: PCP Family Medicine
DX: G31.84 Mild cognitive impairment of uncertain or unknown etiology (principal)
CPT/HCPCS: 70551